=== PATIENT | female | born 1990 | race African-American/Black ===

== ENCOUNTER 2021-01-19 11:17 | Emergency (ER) | payer BC, SELFPAY ==
[2021-01-19 11:33] VITALS: BP 136/92; PULSE 108; RESP 18; TEMP 36.7; O2SAT 98
[2021-01-19 11:40] LABS: Glucose Point of Care 126 mg/dl (65-105)
--- NOTE | 2021-01-19 11:43 | ECG_ITS ---
Measurements Intervals [place] Rate: 100 P: 44 GA: 179 QRS: 14 QRSD: 86 T: 20 QT: 318 QTc: 411 Interpretive Statements SINUS TACHYCARDIA VOLTAGE CRITERIA FOR LVH ST ELEVATION IN DIFFUSE LEADS- PROBABLY EARLY REPOLARIZATION ABNORMALITY BORDERLINE ECG Electronically Signed On 01-19-2021 13:40:29 CDT by Burak Mehta D.O.
[2021-01-19 12:15] LABS: Basophils Percent Auto 0.1 % (0.2-1.2); Eosinophils Absolute Auto 0.1 K/mm3 (0-0.3); Eosinophils Percent Auto 1.9 % (0-4.4); Hematocrit 36.9 % (37.0-47.0); Immature Granulocyte Absolute 0.02 K/mm3 (0.00-0.031); Immature Granulocyte Percent A 0.3 % (0-0.5); Lymphocytes Absolute Auto 2.87 K/mm3 (0.9-3.2); Lymphocytes Percent Auto 41.7 % (18.3-44.2); Mean Corpuscular HGB Conc 29.8 g/dl (32-36); Mean Corpuscular Hemoglobin 23.7 pg (26-34); Mean Corpuscular Volume 79.5 fl (80-100); Mean Platelet Volume 11.7 fl (7.4-10.4); Monocytes Absolute Auto 0.6 K/mm3 (0.1-0.6); Monocytes Percent Auto 8.3 % (2.6-8.5); Neutrophils Absolute Auto 3.3 K/mm3 (1.3-6.7); Neutrophils Percent Auto 47.7 % (45.5-73.1); Platelet Count Result 292 k/mm3 (150-375); Red Blood Count 4.64 M/mm3 (4.2-5.4); Red Cell Distribution Width 16.4 % (11.5-14.5); White Blood Count 6.9 K/mm3 (4.5-10.0)
[2021-01-19 12:20] VITALS: BP 127/80; PULSE 96
[2021-01-19 12:21] LABS: Alanine Aminotransferase 23 U/L (4-35); Albumin Level 4.2 g/dL (3.5-5.1); Alkaline Phosphatase 125 U/L (38-126); Anion Gap 8 mmol/L (8-16); Aspartate Amino Transferase 22 U/L (14-36); Bilirubin,Total 0.5 mg/dL (0.2-1.3); Blood Urea Nitrogen 7 mg/dL (7-17); Calcium 9.5 mg/dL (8.4-10.2); Carbon Dioxide 27 mmol/L (22-30); Chloride 105 mmol/L (98-107); Estimated CRCL calculation 149 ml/min; Estimated Glomerular Filt Rate > 60; Glucose 133 mg/dL (65-105); Lipase 73 U/L (23-300); Magnesium 1.6 mg/dL (1.6-2.3); Potassium 4.5 mmol/L (3.4-5.0); Sodium 140 mmol/L (137-145)
[2021-01-19 12:22] VITALS: BP 134/86; PULSE 95
[2021-01-19 12:24] VITALS: BP 139/86; PULSE 101
[2021-01-19] MEDS: LACTATED RINGERS 1,000 ML 999 ML IV CONT (12:26)
[2021-01-19] MEDS: diphenhydrAMINE HCl INJ 50 MG/ML VIAL 25 MG IV PUSH (12:26)
[2021-01-19] MEDS: METOCLOPRAMIDE HCL INJ 10 MG/2 ML VIAL IV PUSH (12:27)
--- NOTE | 2021-01-19 12:43 | ED.GENADULT ---
HPI - General Adult General Chief complaint: Recheck/Abnormal Lab/Rx Stated complaint: High Blood Sugar Time Seen by Provider: 01/19/21 11:21 Source: patient and RN notes reviewed Mode of arrival: ambulatory Limitations: no limitations History of Present Illness HPI narrative: This is a 30 year old female who presents for evaluation blurred vision, headache, dizziness. She states she developed dull frontal headache, blurred vision, nausea, vomiting and diarrhea 1 hour after working. She also reports her blood sugar was high at 190. She denies fever, chills, runny nose, sore throat. She has not taken anything for her symptoms. Related Data Allergies Allergy/AdvReac Type Severity Reaction Status Date / Time No Known Allergies Allergy Unverified 04/12/19 07:18 Review of Systems Review of Systems: All systems reviewed & are unremarkable except as noted in HPI and below Constitutional: Constitutional: Denies chills and Denies fever(s) Eyes: Eyes: Reports change in vision ENT: Reports dizziness, Denies nasal congestion and Denies sore throat Cardiovascular: Cardiovascular: Denies chest pain Respiratory: Respiratory: Denies cough and Denies dyspnea Gastrointestinal: Gastrointestinal: Denies abdominal pain, Reports diarrhea, Reports nausea and Reports vomiting Musculoskeletal: Musculoskeletal: Reports arthralgias Neurologic: Reports headache(s) [facility] Past Medical History Medical History (Updated 01/19/21 @ 14:32 by Laura South MD) Diabetes mellitus Social History Social History (Updated 01/19/21 @ 13:29 by Laura South MD) Smoking status: Never smoker Alcohol intake: current Substance use: never Exam Const: General: no acute distress and alert Nutritional Appearance: obese Orientation/consciousness: patient oriented x3 HENMT: Ears: TM's normal bilaterally Face and sinus: normal facial exam Eyes: Conjunctivae: conjunctivae normal Pupils: Equal, round and reactive pupils present EOM: EOMs intact bilaterally Chest: Chest palpation & inspection: normal inspection of the chest Resp: Effort & Inspection: normal respiratory effort and no retractions Auscultation: clear to auscultation bilaterally Cardio: Rate: regular rate Rhythm: regular rhythm Heart sounds: no murmurs GI: GI Palp: Yes Soft to palpation, No Tenderness to palpation present (GI) and No Guarding due to palpation present (GI) Auscultation: normal bowel sounds Skin: General skin exam: normal color Rashes: no rashes Neuro: General: patient oriented x3, moves all extremities, no meningeal signs, no focal motor deficits and CN's II-XI intact bilaterally Cranial nerves: Yes Nystagmus not present Speech: normal speech Gait exam (Neuro): Normal gait present Extrem: General: normal to inspection Psych: Mental Status: mental status grossly normal Affect: normal affect Course Reevaluation(s) Reevaluation #1: PAtient reports she feels much better. She reports her headache and blurred vision have resolved. Date: 01/19/21 Time: 14:22 Reevaluation #2: Patient states she is feeling much better and her symptoms have resolved. She is eager for discharge home. Date: 01/19/21 Time: 14:30 Vital Signs Vital signs: Vital Signs Temperature 98.1 F 01/19/21 11:33 Pulse Rate 108 H 01/19/21 11:33 Respiratory Rate 18 01/19/21 11:33 Blood Pressure 136/92 H 01/19/21 11:33 Pulse Oximetry 98 01/19/21 11:33 Temperature 98.1 F 01/19/21 11:33 Pulse Rate 82 01/19/21 14:40 Respiratory Rate 16 01/19/21 14:40 Blood Pressure 136/80 01/19/21 14:40 Pulse Oximetry 96 01/19/21 14:40 Medical Decision Making Vital Signs Vital Signs: Vital Signs Temperature 98.1 F 01/19/21 11:33 Pulse Rate 108 H 01/19/21 11:33 Respiratory Rate 18 01/19/21 11:33 Blood Pressure 136/92 H 01/19/21 11:33 Pulse Oximetry 98 01/19/21 11:33 Temperature 98.1 F 01/19/21 11:33 Pulse Rate
--- NOTE | 2021-01-19 12:47 | PC.NURSE ---
Pt. to bathroom to attempt to void.
--- NOTE | 2021-01-19 13:23 | PC.NURSE ---
pt. unable to void, refuses catheter, aware awaiting urine specimen to complete plan of care. In no acute distress. States her blurry vision has resolved.
--- NOTE | 2021-01-19 13:30 | PC.NURSE ---
Pt tried x2 to go to the bathroom with no success. Refused straight cath at this time
[2021-01-19 14:21] LABS: Add Urine Microscopic? YES; Appearance Urine Cloudy (Clear); Bilirubin Urine Negative (Negative); Blood Urine Negative (Negative); Color Urine Yellow (Yellow); Glucose Urine UA Negative (Negative); Ketones Urine Negative (Negative); Leukocyte Esterase Ur Negative LEU/UL (Negative); Mucus Urine Few /lpf; Nitrate Urine Negative (Negative); Protein Urine 1+ mg/dL (Negative); Specific Grav Ur 1.029 (1.001-1.035); Squamous Epithelial Cell Urine Many /hpf (Few); WBC Urine 0-3 /hpf
[2021-01-19 14:40] VITALS: BP 136/80; PULSE 82; RESP 16; O2SAT 96
== END 2021-01-19 14:40 | disposition home or self-care (01) ==
PROVIDERS: Emergency Provider General Practice; PCP Physician Assistant
DX: R51.9 Headache, unspecified (principal); E86.0 Dehydration; E11.9 Type 2 diabetes mellitus without complications; R00.0 Tachycardia, unspecified; R94.31 Abnormal electrocardiogram [ECG] [EKG]
CPT/HCPCS: 36415; 80053; 81001; 82948; 83690; 83735; 85025; 93005; 96361; 96374; 96375; 99284; J1200; J2765; J7120

== ENCOUNTER 2021-06-04 13:55 | Outpatient (CLI) | payer OTHER, SELFPAY ==
--- NOTE | 2021-06-04 | ECHO_ITS ---
Patient Info Name: Tara Ta Age: 30 years : 1990 Gender: Female Ht: 67 in Wt: 250 lbs BSA: 2.37 m2 HR: 78 bpm BP: 129 / 85 mmHg Technical Quality: Fair Exam Date: 06/04/2021 2:16 PM Exam Location: [facility] Patient Status: Outpatient Admit Date: 06/04/2021 Staff Ordering Physician: RamirezAraceli Mud Cleaner Operator: Shaylee Sandra RDCS Attending Provider: Caty, Araceli MAY Referring Physician: Ramirez CARSON; Exam Type: CA echo doppler color flow Study Info Indications - CARDIOMEGALY Complete two-dimensional, color flow and Doppler transthoracic echocardiogram is performed. Summary 1. Complete two-dimensional, color flow and Doppler transthoracic echocardiogram is performed. 2. Normal LV size and wall thickness; normal LV systolic function, ejection fraction 60-65%. Indeterminate diastolic function. Normal mitral valve structure, no significant MR. Normal aortic valve structure, no regurgitation or stenosis. Trivial TR, RVSP 25 mmHg. Left Ventricle Left ventricular chamber dimension is normal. Left ventricular systolic function is normal, estimated at 60-65%. There is no increased left ventricular wall thickness. Right Ventricle Right ventricular chamber dimension is normal. Right ventricular systolic function is normal. Left Atria Left atrial chamber dimension is normal. Right Atria Right atrial chamber dimension is normal. Aortic Valve The aortic valve is normal. There is no aortic valve stenosis. Pulmonic Valve The pulmonic valve is normal. Mitral Valve The mitral valve has normal leaflets. Tricuspid Valve The tricuspid valve leaflets are normal. Pericardium/Pleural The pericardium appears normal. Inferior Vena Cava Normal inferior vena cava with >50% collapse upon inspiration consistent with normal right atrial pressure, 10 mmHg. Aorta The aortic root size at the sinus of Valsalva is not well visualized. Left Ventricular Outflow Tract Name Value Normal LVOT 2D LVOT Diameter 2.0 cm LVOT Doppler LVOT Peak Gradient 5 mmHg LVOT Mean Gradient 3 mmHg LVOT VTI 20 cm LVOT VTI/AV VTI Ratio 0.8 LVOT Stroke Volume 61 ml LVOT CO 14.7 l/min LVOT CI 6.2 l/min/m2 Pulmonic Valve Name Value Normal PV Doppler PV Peak Gradient 5 mmHg Mitral Valve Name Value Normal MV Doppler MV Decel Sheridan 314 cm/s
== END 2021-06-04 13:56 | disposition home or self-care (01) ==
LOC: ANHCARD 13:56
PROVIDERS: PCP Physician Assistant; Visit Provider Physician Assistant
DX: I51.7 Cardiomegaly (principal)
CPT/HCPCS: 93306

== ENCOUNTER 2021-09-18 10:52 | Emergency (ER) | payer OTHER, SELFPAY ==
[2021-09-18 11:19] VITALS: BP 145/83; PULSE 76; RESP 18; TEMP 36.4; O2SAT 100
[2021-09-18 11:57] LABS: Glucose Point of Care 115 mg/dl (65-105)
[2021-09-18 12:13] LABS: Basophils Percent Auto 0.3 % (0.2-1.2); Eosinophils Absolute Auto 0.1 K/mm3 (0-0.3); Hematocrit 38.3 % (37.0-47.0); Hemoglobin 11.7 g/dL (12.0-15.0); Immature Granulocyte Absolute 0.03 K/mm3 (0.00-0.031); Immature Granulocyte Percent A 0.4 % (0-0.5); Lymphocytes Absolute Auto 3.19 K/mm3 (0.9-3.2); Lymphocytes Percent Auto 43.6 % (18.3-44.2); Mean Corpuscular HGB Conc 30.5 g/dl (32-36); Mean Corpuscular Hemoglobin 25.2 pg (26-34); Mean Corpuscular Volume 82.5 fl (80-100); Mean Platelet Volume 11.4 fl (7.4-10.4); Monocytes Absolute Auto 0.5 K/mm3 (0.1-0.6); Monocytes Percent Auto 7.1 % (2.6-8.5); Neutrophils Absolute Auto 3.5 K/mm3 (1.3-6.7); Neutrophils Percent Auto 47.6 % (45.5-73.1); Platelet Count Result 246 k/mm3 (150-375); Red Blood Count 4.64 M/mm3 (4.2-5.4); Red Cell Distribution Width 16.2 % (11.5-14.5); White Blood Count 7.3 K/mm3 (4.5-10.0)
[2021-09-18 12:22] LABS: Alanine Aminotransferase 25 U/L (4-35); Albumin Level 4.2 g/dL (3.5-5.1); Alkaline Phosphatase 107 U/L (38-126); Anion Gap 11 mmol/L (8-16); Aspartate Amino Transferase 29 U/L (14-36); Bilirubin,Total 0.4 mg/dL (0.2-1.3); Blood Urea Nitrogen 10 mg/dL (7-17); Calcium 9.5 mg/dL (8.4-10.2); Carbon Dioxide 26 mmol/L (22-30); Chloride 103 mmol/L (98-107); Estimated CRCL calculation 115 ml/min; Estimated Glomerular Filt Rate > 60; Glucose 106 mg/dL (65-110); Potassium 4.2 mmol/L (3.4-5.0); Sodium 140 mmol/L (137-145)
[2021-09-18 13:00] LABS: Add Urine Microscopic? YES; Appearance Urine Clear (Clear); Bilirubin Urine Negative (Negative); Blood Urine Negative (Negative); Color Urine Yellow (Yellow); Glucose Urine UA Negative (Negative); Ketones Urine Negative (Negative); Leukocyte Esterase Ur Negative LEU/UL (Negative); Mucus Urine Rare /lpf; Nitrate Urine Negative (Negative); Protein Urine Negative (Negative); RBC Urine 0-2 /hpf (0-2); Specific Grav Ur 1.025 (1.001-1.035); Squamous Epithelial Cell Urine Many /hpf (Few); WBC Urine 0-3 /hpf
--- NOTE | 2021-09-18 13:03 | ED.GENADULT ---
HPI - General Adult General Chief complaint: Unspecified Stated complaint: hypoglycemia Time Seen by Provider: 09/18/21 11:39 Source: patient and RN notes reviewed Mode of arrival: ambulatory Limitations: no limitations History of Present Illness HPI narrative: Patient is a 31-year-old female who presents from urgent care for evaluation of feeling jittery and not well yesterday and then again today while at work she notes that her glucose was in the 80s which is low for her she ate some sugar and is feeling better at this time she denies any acute illness lightheadedness dizziness nausea vomiting URI symptoms and on arrival denies any pain she notes that she has not been compliant with her Metformin but did take it prior evening and today and plans to become pliant has follow-up with primary care on the . And as noted on arrival is feeling better at this time Related Data Allergies Allergy/AdvReac Type Severity Reaction Status Date / Time No Known Allergies Allergy Unverified 04/12/19 07:18 Review of Systems Review of Systems: All systems reviewed & are unremarkable except as noted in HPI and below PMFSH Past Medical History Medical History Diabetes mellitus Social History Social History Smoking status: Never smoker Alcohol intake: current Substance use: never Exam Narrative: GENERAL: Well-appearing, well-nourished, and in no acute distress. HEAD: Normocephalic, atraumatic. EYES: PERRLA and EOMI. ENT: Nares clear, no rhinorrhea or epistaxis. Mucous membranes moist. CHEST: Clear to auscultation. No respiratory distress. No wheezes rales or rhonchi HEART: Regular rate and rhythm. No murmur heard. EXTREMITIES: Normal range of motion. No edema. SKIN: Warm, dry, no rash. NEURO: No focal deficits. Alert and oriented x3. Cranial nerves II through XII grossly intact. Normal speech and gait PSYCH: Normal mood and affect. Course Course Emergency Course: Patient presented with not feeling well with potential low blood glucose she is afebrile nontoxic-appearing nondistressed asymptomatic and feeling better on arrival she had been advised to adhere to her medication regimen and agrees with the treatment plan she is hemodynamically stable no high risk changes in her evaluation afebrile nontoxic-appearing nondistressed and felt appropriate for outpatient reevaluation with her upcoming primary care visit ABCs and vital signs intact state Vital Signs Vital signs: Vital Signs Temperature 97.6 F 09/18/21 11:19 Pulse Rate 76 09/18/21 11:19 Respiratory Rate 18 09/18/21 11:19 Blood Pressure 145/83 H 09/18/21 11:19 Pulse Oximetry 100 09/18/21 11:19 Temperature 97.6 F 09/18/21 11:19 Pulse Rate 76 09/18/21 11:19 Respiratory Rate 18 09/18/21 11:19 Blood Pressure 145/83 H 09/18/21 11:19 Pulse Oximetry 100 09/18/21 11:19 Medical Decision Making MDM Narrative Medical decision making narrative: Symptoms likely related to her low glucose today she is feeling fine at this time she notes that she will be compliant with medications she has been given strict indications for return and agrees to do so if symptoms worsen she is afebrile nontoxic-appearing nondistressed felt appropriate for outpatient reevaluation Vital Signs Vital Signs: Vital Signs Temperature 97.6 F 09/18/21 11:19 Pulse Rate 76 09/18/21 11:19 Respiratory Rate 18 09/18/21 11:19 Blood Pressure 145/83 H 09/18/21 11:19 Pulse Oximetry 100 09/18/21 11:19 Temperature 97.6 F 09/18/21 11:19 Pulse Rate 76 09/18/21 11:19 Respiratory Rate 18 09/18/21 11:19 Blood Pressure 145/83 H 09/18/21 11:19 Pulse Oximetry 100 09/18/21 11:19 Lab Data Result diagrams: 09/18/21 11:59 09/18/21 11:59 Labs: Lab Results 09/18/21 09/18/21 09/18/21 Range/Units 11:17 11:59 11:
[2021-09-18 13:38] VITALS: BP 139/72; PULSE 72; RESP 18; TEMP 36.6; O2SAT 100
== END 2021-09-18 13:38 | disposition home or self-care (01) ==
PROVIDERS: Emergency Medicine Emergency Medical Services; Emergency Provider Emergency Medicine; PCP Physician Assistant
DX: E11.649 Type 2 diabetes mellitus with hypoglycemia without coma (principal); Z79.84 Long term (current) use of oral hypoglycemic drugs; T38.3X6A Underdosing of insulin and oral hypoglycemic [antidiabetic] drugs, initial encounter; Z91.128 Patient's intentional underdosing of medication regimen for other reason
CPT/HCPCS: 36415; 80053; 81001; 82948; 85025; 99283

== ENCOUNTER 2022-03-12 10:34 | Emergency (ER) | payer OTHER, SELFPAY ==
--- NOTE | 2022-03-12 10:40 | PC.NURSE ---
Pt stated that she passed out at work and she knew it was from her diabetes . Pt was informed of the workup regarding the complaint. Pt stated I just need a work note, I don't want all of that done.
== END 2022-03-12 10:40 | disposition left against medical advice (07) ==
PROVIDERS: PCP Physician Assistant
DX: Z53.21 Procedure and treatment not carried out due to patient leaving prior to being seen by health care provider (principal)
CPT/HCPCS: 99199

== ENCOUNTER 2022-03-12 10:47 | Emergency (ER) | payer OTHER, SELFPAY ==
--- NOTE | 2022-03-12 10:56 | PC.NURSE ---
Went in to see patient. She was sitting on the side of the bed looking at her phone. I introduced myself. The patient did not acknowledge me. The techs came in to do an EKG and the patient refused to lie back to complete the test. I explained the need for the exam and that we would get better results if she would lie back in the bed for a short period of time to complete it and then she could sit up again. The patient continued to stare at her phone and not acknowledge me. I asked her if she understood me and would lie back, she sait wait a moment. She then stated that she was going to leave.
--- NOTE | 2022-03-12 11:01 | ECG_ITS ---
Measurements Intervals [place] Rate: 74 P: 31 NH: 173 QRS: 2 QRSD: 89 T: 6 QT: 344 QTc: 383 Interpretive Statements SINUS RHYTHM WITH SINUS ARRHYTHMIA VOLTAGE CRITERIA FOR LVH ST ELEVATION IN HIGH LATERAL LEADS- PROBABLY EARLY REPOLARIZATION ABNORMALITY BASELINE ARTIFACT- I, II, III, AVR, AVL, AVF, V4 BORDERLINE ECG Electronically Signed On 03-12-2022 11:13:13 CDT by Burak Mehta D.O.
[2022-03-12 11:06] VITALS: BP 153/95; PULSE 84; RESP 16; O2SAT 100
[2022-03-12 11:11] LABS: Glucose Point of Care 207 mg/dl (65-105)
--- NOTE | 2022-03-12 11:16 | PC.NURSE ---
Pt low risk for suicide. Dr. Jones informed. He will assess the situation.
[2022-03-12 11:21] VITALS: BP 153/95; PULSE 83; RESP 16; O2SAT 100
[2022-03-12 11:35] VITALS: BP 145/98; PULSE 86
[2022-03-12 11:37] VITALS: BP 142/99; PULSE 91
[2022-03-12 11:38] VITALS: BP 165/111; PULSE 99
--- NOTE | 2022-03-12 12:11 | ED.SYNCOPE ---
HPI - Syncope General Chief Complaint: Syncope Stated Complaint: syncope Time Seen by Provider: 03/12/22 10:51 History of Present Illness HPI narrative: Patient is a 31-year-old female who presents ER for evaluation after syncopal episode at work. 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 Reports she did not take her metformin nor did she eat this morning. She had an episode where she was feeling lightheaded and hot so she sat down and rested. She then got back up to do her work and then she lost consciousness. Reports it was witnessed and that she was out for a very brief amount of time. Coworkers applied ice to her to cool her off. She then drank some apple juice. She was instructed to be evaluated before return to work. Patient denies chest pain or chest pressure. No racing heart. No dyspnea. No focal numbness or weakness. Reports she has had similar episodes to this when she has not had anything to eat previously. Related Data Allergies Allergy/AdvReac Type Severity Reaction Status Date / Time No Known Allergies Allergy Unverified 04/12/19 07:18 Review of Systems Review of Systems: All systems reviewed & are unremarkable except as noted in HPI and below Constitutional: Constitutional: Denies chills, Denies fatigue and Denies fever(s) Cardiovascular: Cardiovascular: Denies chest pain, Denies rapid heart rate and Denies radiating jaw, neck or arm pain Respiratory: Respiratory: Denies dyspnea Gastrointestinal: Gastrointestinal: Denies nausea and Denies vomiting Neurologic: Reports syncope, Denies headache(s), Denies focal weakness and Denies numbness PMFSH Past Medical History Medical History Diabetes mellitus Social History Social History Smoking status: Never smoker Alcohol intake: current Substance use: never Exam Narrative: GENERAL: Well-appearing, well-nourished, and in no acute distress. HEAD: Normocephalic, atraumatic. CHEST: Clear to auscultation. No respiratory distress. HEART: Regular rate and rhythm. Normal peripheral pulses. ABDOMEN: Soft, nontender, nondistended. EXTREMITIES: Normal range of motion. No edema. NEURO: Alert and oriented x3. PSYCH: Normal mood and affect. Course Course Emergency Course: Patient resting comfortably. Normal orthostatics. Bedside negative. EKG and [id number] blood glucose unremarkable. Discharge home. Vital Signs Vital signs: Vital Signs Pulse Rate 84 03/12/22 11:06 Respiratory Rate 16 03/12/22 11:06 Blood Pressure 153/95 H 03/12/22 11:06 Pulse Oximetry 100 03/12/22 11:06 Pulse Rate 99 03/12/22 11:38 Respiratory Rate 16 03/12/22 11:21 Blood Pressure 165/111 H 03/12/22 11:38 Pulse Oximetry 100 03/12/22 11:21 MDM - Syncope Lab Data Labs: Lab Results 03/12/22 Range/Units 11:09 POC Capillary Glucose 207 H (65-105) mg/dl UCG Bedside Result Negative Reference Range: Negative ECG Data EKG #1: ECG completion date: 03/12/22 ECG completion time: 11:08 EKG Interpretation: normal rate (74), sinus rhythm, non-specific ST changes, normal QRS, normal QT and other (lvh) Discharge Plan Discharge Clinical Impression: Syncope Patient Disposition: Home, Self-Care Condition: Stable Instructions: Syncope (ED) Additional Instructions: Return the ER if you have chest pain or shortness of breath, you cannot keep down food or water, you have recurrent loss of consciousness, you have additional concerns. Follow-up/Referrals: Ramirez,YADIRA Hernandez [Primary Care Provider] - 1 Week Stand Alone Forms: Work/School Release IP
== END 2022-03-12 12:30 | disposition home or self-care (01) ==
PROVIDERS: Emergency Provider Emergency Medicine; PCP Physician Assistant
DX: R55 Syncope and collapse (principal); E11.9 Type 2 diabetes mellitus without complications; Z79.84 Long term (current) use of oral hypoglycemic drugs; R94.31 Abnormal electrocardiogram [ECG] [EKG]
CPT/HCPCS: 81025; 82948; 93005; 99283

== ENCOUNTER 2022-10-04 14:02 | Outpatient (CLI) | payer OTHER, SELFPAY ==
--- NOTE | ~2022-10-04 | XR_ITS ---
EXAMINATION: XR chest 2V 10/04/2022 14:16 INDICATION: Tuberculosis screening. PROCEDURE: 2 view chest COMPARISON: No prior studies for comparison. FINDINGS: The lungs are clear. The cardiomediastinal silhouette is within normal limits. There are no pleural effusions. There is no pneumothorax suspected. IMPRESSION: 1: NO ACUTE CARDIOPULMONARY DISEASE. Reviewed, dictated and finalized at location A. DEHYDRATOR OPERATOR
== END 2022-10-04 14:03 | disposition home or self-care (01) ==
LOC: ANHIMG 14:06
PROVIDERS: PCP Physician Assistant; Visit Provider Physician Assistant
DX: Z11.7 Encounter for testing for latent tuberculosis infection (principal)
CPT/HCPCS: 71046

== ENCOUNTER 2023-07-23 10:53 | Emergency (ER) | payer OTHER, SELFPAY ==
[2023-07-23 11:15] VITALS: BP 142/96; PULSE 101; RESP 18; TEMP 36.3; O2SAT 98
[2023-07-23 11:35] LABS: Basophils Percent Auto 0.2 % (0.2-1.2); Eosinophils Percent Auto 0.5 % (0-4.4); Hematocrit 38.5 % (37.0-47.0); Hemoglobin 11.3 g/dL (12.0-15.0); Immature Granulocyte Absolute 0.02 K/mm3 (0.00-0.031); Immature Granulocyte Percent A 0.3 % (0-0.5); Lymphocytes Absolute Auto 2.46 K/mm3 (0.9-3.2); Lymphocytes Percent Auto 38.6 % (18.3-44.2); Mean Corpuscular HGB Conc 29.4 g/dl (32-36); Mean Corpuscular Volume 85.2 fl (80-100); Mean Platelet Volume 11.6 fl (7.4-10.4); Monocytes Absolute Auto 0.5 K/mm3 (0.1-0.6); Monocytes Percent Auto 7.8 % (2.6-8.5); Neutrophils Absolute Auto 3.4 K/mm3 (1.3-6.7); Neutrophils Percent Auto 52.6 % (45.5-73.1); Platelet Count Result 271 k/mm3 (150-375); Red Blood Count 4.52 M/mm3 (4.2-5.4); Red Cell Distribution Width 16.3 % (11.5-14.5); White Blood Count 6.4 K/mm3 (4.5-10.0)
[2023-07-23 11:46] LABS: Alanine Aminotransferase 28 U/L (6-35); Albumin Level 4.2 g/dL (3.5-5.1); Alkaline Phosphatase 100 U/L (38-126); Anion Gap 7 mmol/L (8-16); Aspartate Amino Transferase 23 U/L (14-36); Bilirubin,Total 0.6 mg/dL (0.2-1.3); Blood Urea Nitrogen 8 mg/dL (7-17); Calcium 9.3 mg/dL (8.4-10.2); Carbon Dioxide 28 mmol/L (22-30); Chloride 104 mmol/L (98-107); Estimated CRCL calculation 123 ml/min; Estimated Glomerular Filt Rate > 60; Glucose 102 mg/dL (65-110); Lipase 65 U/L (23-300); Potassium 4.1 mmol/L (3.4-5.0); Sodium 139 mmol/L (137-145)
[2023-07-23 12:03] LABS: Large Platelets Present; Platelet Estimate Adequate (Adequate); Schistocytes None Seen (NORMAL)
[2023-07-23 14:11] LABS: Appearance Urine Cloudy (Clear); Bacteria Urine 2+ /hpf; Bilirubin Urine Negative (Negative); Blood Urine Negative (Negative); Color Urine Yellow (Yellow); Glucose Urine UA Negative (Negative); Ketones Urine Trace mg/dL (Negative); Leukocyte Esterase Ur Negative LEU/UL (Negative); Nitrate Urine Negative (Negative); Non Pathogenic Casts 0-2; Protein Urine Negative (Negative); RBC Urine 0-2 /hpf (0-2); Specific Grav Ur 1.024 (1.001-1.035); Squamous Epithelial Cell Urine Few /hpf (Few); WBC Urine 0-5 /hpf
[2023-07-23 14:21] LABS: Add Urine Microscopic? YES
--- NOTE | 2023-07-23 14:24 | ED.FEMALEGU ---
HPI - Female Genitourinary General Chief complaint: Vaginal Bleeding Stated complaint: abd pain, irr bleeding Time Seen by Provider: 07/23/23 13:13 Source: patient Mode of arrival: ambulatory Limitations: no limitations History of Present Illness HPI Narrative: Patient is a 32-year-old female who presents to the ED with report of lower abdominal pain, abnormal vaginal bleeding. Patient reports having lower abdominal pain since Friday. It has been fairly constant. She has been taking Aleve with some relief. She also reports having abnormal vaginal bleeding. She states she has irregular cycles and last had a cycle in February, which lasted for several weeks. She began bleeding over the weekend and reports intermittent episodes of gushing of blood. She tried contacting her OBGYN but was unable to make an appt until September. Patient denies any nausea, vomiting, fevers, dysuria, hematuria, diarrhea, constipation, dizziness, lightheadedness. Related Data Allergies Allergy/AdvReac Type Severity Reaction Status Date / Time No Known Allergies Allergy Verified 07/23/23 13:11 Review of Systems Review of Systems: CONSTITUTIONAL: Denies fever, chills, or sweats. CARDIOVASCULAR: Denies chest pain, palpitations, or edema. RESPIRATORY: Denies cough or dyspnea. GASTROINTESTINAL: See HPI. GENITOURINARY: See HPI. NEUROLOGIC: Denies dizziness, LH, headache, numbness, or weakness. All systems reviewed & are unremarkable except as noted in HPI and below PMFSH Past Medical History Medical History Diabetes mellitus Social History Social History Smoking status: Never smoker Alcohol intake: current Substance use: never Exam Narrative: GENERAL: Well appearing, obese with BMI of 34.5, non-toxic, in no acute distress. HEAD: Normocephalic, atraumatic. NECK: Supple. No adenopathy, no masses. RESPIRATORY: Airway patent, respirations nonlabored. Clear to auscultation bilaterally, no rales, rhonchi, wheezing. CARDIOVASCULAR: Regular rate and rhythm without murmurs, rubs, or gallops. Radial pulses 2+ and equal bilaterally. ABDOMINAL: Soft, tenderness in RLQ and suprapubic region, nondistended, no hepatosplenomegaly. Normoactive BS. MUSCULOSKELETAL: Moves all extremities. No gross deformities. SKIN: Warm, dry, normal color. No rashes. NEURO: A&O X3. Speech clear. Cranial nerves II-XII grossly intact. Steady gait. No ataxic movements. PSYCHIATRIC: Appropriate mood and affect. Normal interaction. Course Vital Signs Vital signs: Vital Signs Temperature 97.4 F L 07/23/23 11:15 Pulse Rate 101 H 07/23/23 11:15 Respiratory Rate 18 07/23/23 11:15 Blood Pressure 142/96 H 07/23/23 11:15 Pulse Oximetry 98 07/23/23 11:15 Oxygen Delivery Room Air 07/23/23 11:15 Temperature 97.4 F L 07/23/23 11:15 Pulse Rate 101 H 07/23/23 11:15 Respiratory Rate 18 07/23/23 11:15 Blood Pressure 142/96 H 07/23/23 11:15 Pulse Oximetry 98 07/23/23 11:15 Oxygen Delivery Room Air 07/23/23 11:15 MDM - Female Genitourinary MDM Narrative Medical decision making narrative: Patient present ED with lower abdominal pain, abnormal vaginal bleeding. History of irregular cycles. Vital stable upon arrival. Patient in no acute distress. She did have some right lower quadrant tenderness on exam. Cbc without leukocytosis. Chronic stable mild anemia. No significant changes from previous records in September of this year. Remainder basic laboratory studies unremarkable. Urinalysis negative other than that 2+ urine bacteria. Will send for culture. Few squamous cells noted, likely contaminated catch. Discussed obtaining a CT scan or pelvic ultrasound to further evaluate patient's lower abdominal pain. Discussed performing pelvic exam to evaluate for bleeding. Patient was initially agreeable to the additional t
== END 2023-07-23 14:43 | disposition left against medical advice (07) ==
PROVIDERS: Emergency Medicine; Emergency Provider Physician Assistant; PCP Physician Assistant
DX: R10.32 Left lower quadrant pain (principal); R10.31 Right lower quadrant pain; N93.8 Other specified abnormal uterine and vaginal bleeding
CPT/HCPCS: 36415; 80053; 81001; 81025; 83690; 85025; 87086; 87088; 99283

== ENCOUNTER 2023-07-24 07:21 | Emergency (ER) | payer OTHER, SELFPAY ==
[2023-07-24] VITALS (9 sets, daily range): BP systolic 136–140; BP diastolic 88–92; PULSE 100; RESP 18; O2SAT 97–100
--- NOTE | ~2023-07-24 | US_ITS ---
EXAMINATION: US pelvic complete DATE: 07/24/2023 09:50 INDICATION: Abdominal pain and right ovarian lesion on CT TECHNIQUE: Multiple transabdominal and endovaginal sonographic images of the pelvis were obtained. COMPARISON: None. FINDINGS: The uterus measures 8.1 x 3.0 x 4.5 cm. The endometrial complex measures 4 mm in thickness. 1.8 cm a nechoic nabothian cyst at the cervix. Bladder is normal. The right ovary measures 5.6 x 2.6 x 3.0 wit h 2.6 cm anechoic right ovarian cyst/follicle The left ovary measures 3.1 x 3.1 x 2.6 cm. There is no rmal vascular flow with arterial waveforms in both of the ovaries. There is no free fluid in the pelv is. IMPRESSION: 1. 2.6 cm right ovarian cyst/follicle and 1.8 cm nabothian cyst at the cervix. Otherwise normal pelvi c ultrasound. Reviewed, dictated and finalized at location A. ECT MANAGER PROCESS DEVELOPMENT IMPRESSION: 1. 2.6 cm right ovarian cyst/follicle and 1.8 cm nabothian cyst at the cervix. Otherwise normal pelvic ultrasound.
--- NOTE | ~2023-07-24 | CT_ITS ---
EXAMINATION: CT abdomen pelvis w con DATE: 07/24/2023 08:57 INDICATION: Abdomen pain. TECHNIQUE: Computed tomography (CT) of the abdomen and pelvis was performed with 100 cc Omnipaque 350 intravenous contrast. The dose-length product was 1478.40 mGy-cm. Automated exposure control and ite rative reconstruction technique were employed. COMPARISON: None. FINDINGS: Lung bases are unremarkable. Heart size normal. No significant pleural or pericardial effus ion. There are small low-density lesions in the left kidney, most likely benign cysts. No significant vascular abnormality. No lymphadenopathy. Prominent right ovary containing follicular changes. Nonob structive bowel gas pattern. The liver, spleen, pancreas, left adrenal gland and right kidney are unremarkable. Gallbladder is pre sent. There is a high density right adrenal mass measuring 81 Hounsfield units. This mass measures 2. 8 x 2.3 cm greatest axial dimension. Gallbladder is present. No free air or free fluid. IMPRESSION: 1. Prominent right ovary with follicular changes. Consider correlation with pelvic ultrasound. 2: Solid 2.8 cm right adrenal mass. Correlation with MRI abdomen with without and with contrast recom mended. Reviewed, dictated and finalized at location L. D SPECIALIST IMPRESSION: 1. Prominent right ovary with follicular changes. Consider correlation with pel anibal ultrasound. 2: Solid 2.8 cm right adrenal mass. Correlation with MRI abdomen with without a nd with contrast recommended.
[2023-07-24 07:46] LABS: Basophils Percent Auto 0.2 % (0.2-1.2); Eosinophils Percent Auto 0.5 % (0-4.4); Hematocrit 40.8 % (37.0-47.0); Hemoglobin 12.3 g/dL (12.0-15.0); Immature Granulocyte Absolute 0.02 K/mm3 (0.00-0.031); Immature Granulocyte Percent A 0.3 % (0-0.5); Lymphocytes Absolute Auto 2.64 K/mm3 (0.9-3.2); Lymphocytes Percent Auto 40.6 % (18.3-44.2); Mean Corpuscular HGB Conc 30.1 g/dl (32-36); Mean Corpuscular Volume 82.9 fl (80-100); Mean Platelet Volume 11.6 fl (7.4-10.4); Monocytes Absolute Auto 0.6 K/mm3 (0.1-0.6); Monocytes Percent Auto 8.5 % (2.6-8.5); Neutrophils Absolute Auto 3.3 K/mm3 (1.3-6.7); Neutrophils Percent Auto 49.9 % (45.5-73.1); Platelet Count Result 292 k/mm3 (150-375); Red Blood Count 4.92 M/mm3 (4.2-5.4); Red Cell Distribution Width 16.2 % (11.5-14.5); White Blood Count 6.5 K/mm3 (4.5-10.0)
--- NOTE | 2023-07-24 07:48 | ED.GENADULT ---
HPI - General Adult General Chief complaint: Abdominal Pain Stated complaint: Abdominal pain and vag bleeding Time Seen by Provider: 07/24/23 07:27 History of Present Illness HPI narrative: 32-year-old female with history of irregular periods presenting to the emergency department for evaluation of vaginal bleeding. Patient states he has only had spotting since February but began having menstrual bleeding on Friday. Patient describes associated lower abdominal pain. Related Data Allergies Allergy/AdvReac Type Severity Reaction Status Date / Time No Known Allergies Allergy Verified 07/24/23 07:22 Review of Systems Review of Systems: All systems reviewed & are unremarkable except as noted in HPI and below PMFSH Past Medical History Medical History Diabetes mellitus Social History Social History Smoking status: Never smoker Alcohol intake: current Substance use: never Exam Narrative: APPEARANCE: Well appearing, no pain, no distress, well-nourished. HEAD: normocephalic, atraumatic. EYES: PERRLA/EOMI, conjunctivae clear. NOSE: Normal no drainage EARS:TMS clear with good light reflex. THROAT: Pharynx clear, no exudate. NECK: Supple. No adenopathy, no masses. RESPIRATORY: Airway patent, respirations nonlabored. Clear to auscultation bilaterally, no rales, rhonchi, wheezing. CARDIOVASCULAR: Regular rate and rhythm without murmurs rubs or gallops. ABDOMINAL: Soft, nontender, nondistended, normal bowel sounds MUSCULOSKELETAL: Moves all extremities. Strength/ROM intact, No edema, No calf tenderness. NEURO: Alert. Cranial nerves II through XII intact. Grossly intact SKIN: Warm, dry. Normal Color Course Course Emergency Course: 32-year-old female presenting to the emergency department for evaluation of vaginal bleeding and lower abdominal pain. Patient is afebrile with no leukocytosis and hemoglobin of 12.3. Patient has normal PT and PTT. No significant abnormalities on her CMP. CT scan was ordered and did show a prominent right ovary and Solid 2.8 cm right adrenal mass. ultrasound was ordered and showed no evidence of ovarian torsion. Patient does feel improved in the emergency department. Patient was updated on results of her CT ultrasound including the incidental finding of the adrenal mass and recommended follow-up. Vital Signs Vital signs: Vital Signs Pulse Rate 100 07/24/23 07:27 Respiratory Rate 18 07/24/23 07:27 Blood Pressure 140/92 H 07/24/23 07:27 Pulse Oximetry 98 07/24/23 07:27 Oxygen Delivery Room Air 07/24/23 07:27 Pulse Rate 100 07/24/23 07:27 Respiratory Rate 18 07/24/23 07:27 Blood Pressure 136/88 07/24/23 08:02 Pulse Oximetry 100 07/24/23 09:15 Oxygen Delivery Room Air 07/24/23 07:27 Medical Decision Making Differential Diagnosis Differential Diagnosis: colitis, diverticulitis, urinary tract infection, ovarian torsion Vital Signs Vital Signs: Vital Signs Pulse Rate 100 07/24/23 07:27 Respiratory Rate 18 07/24/23 07:27 Blood Pressure 140/92 H 07/24/23 07:27 Pulse Oximetry 98 07/24/23 07:27 Oxygen Delivery Room Air 07/24/23 07:27 Pulse Rate 100 07/24/23 07:27 Respiratory Rate 18 07/24/23 07:27 Blood Pressure 136/88 07/24/23 08:02 Pulse Oximetry 100 07/24/23 09:15 Oxygen Delivery Room Air 07/24/23 07:27 Lab Data Lab results reviewed: Yes I reviewed the patient's lab results. 07/24/23 07:33 07/24/23 07:33 Labs: Lab Results 07/24/23 Range/Units 07:33 WBC 6.5 (4.5-10.0) K/mm3 RBC 4.92 (4.2-5.4) M/mm3 Hgb 12.3 (12.0-15.0) g/dL Hct 40.8 (37.0-47.0) % MCV 82.9 (80-100) fl MCH 25.0 L (26-34) pg MCHC 30.1 L (32-36) g/dl RDW 16.2 H (11.5-14.5) % Plt Count 292 (150-375) k/mm3 MPV 11.6 H (7.4-10.4) fl [place]ur
[2023-07-24 07:54] LABS: Alanine Aminotransferase 28 U/L (6-35); Albumin Level 4.4 g/dL (3.5-5.1); Alkaline Phosphatase 109 U/L (38-126); Anion Gap 8 mmol/L (8-16); Aspartate Amino Transferase 25 U/L (14-36); Bilirubin,Total 0.6 mg/dL (0.2-1.3); Blood Urea Nitrogen 10 mg/dL (7-17); Calcium 9.6 mg/dL (8.4-10.2); Carbon Dioxide 27 mmol/L (22-30); Chloride 105 mmol/L (98-107); Estimated Glomerular Filt Rate > 60; Glucose 94 mg/dL (65-110); Potassium 4.3 mmol/L (3.4-5.0); Sodium 140 mmol/L (137-145)
[2023-07-24 08:01] LABS: Prothrombin Time 13.3 Seconds (11.1-14.7)
[2023-07-24 08:02] LABS: Partial Thromboplastin Time 30.4 SECONDS (22.3-36.8)
[2023-07-24] MEDS: SODIUM CHLORIDE 0.9% IV 1,000 ML 999 ML IV CONT (08:47)
== END 2023-07-24 10:43 | disposition home or self-care (01) ==
PROVIDERS: Emergency Provider Emergency Medicine; PCP Physician Assistant
DX: N93.9 Abnormal uterine and vaginal bleeding, unspecified (principal); R10.30 Lower abdominal pain, unspecified; E11.9 Type 2 diabetes mellitus without complications; N83.201 Unspecified ovarian cyst, right side; N88.8 Other specified noninflammatory disorders of cervix uteri
CPT/HCPCS: 36415; 74177; 76856; 80053; 81025; 85025; 85610; 85730; 96360; 99284; J7030; Q9967

== ENCOUNTER 2023-08-21 15:47 | Outpatient (CLI) | payer OTHER, SELFPAY ==
--- NOTE | ~2023-08-21 | US_ITS ---
EXAMINATION: US transvaginal DATE: 08/21/2023 16:37 INDICATION: Unspecified ovarian cyst. TECHNIQUE: Multiple transabdominal and transvaginal sonographic images of the pelvis were obtained. COMPARISON: Ultrasound pelvis 07/24/23, CT abdomen and pelvis 07/24/2023 FINDINGS: TRANSABDOMINAL ULTRASOUND: The uterus is obscured. There is no free fluid in the pelvis. TRANSVAGINAL ULTRASOUND: The uterus is obscured. There are nabothian cysts in the cervix. The right ovary measures 3.5 x 4.5 x 4.6 cm. There is a 3.5 cm cyst in right ovary. There is vascular flow in right ovary. The left ovary is not visualized. IMPRESSION: 1. 3.5 cm cyst in right ovary, likely a follicular cyst. 2. Uterus not well visualized. Left ovary not visualized. Reviewed, dictated and finalized at location E. TH SCIENCES DEPARTMENT CHAIR
--- NOTE | ~2023-08-21 | MR_ITS ---
EXAMINATION: MR abdomen wo/w con DATE: 08/21/2023 18:29 INDICATION: Adrenal mass. TECHNIQUE: Magnetic resonance imaging (MRI) of the abdomen was performed without and with 20 mL Multi Precious intravenous contrast. COMPARISON: CT abdomen and pelvis 07/24/2023 FINDINGS: The liver, gallbladder, and spleen are normal. Pancreas divisum is noted. There is a 2.7 cm mass in r ight adrenal gland containing microscopic fat, consistent with an adenoma. Left adrenal gland is norm al. Right kidney is normal. There are cysts in left kidney measuring up to 10 mm. There are no dilate d loops of bowel. There are no pathologically enlarged lymph nodes. There is no free intraperitoneal fluid. There is a 4.3 cm cyst with thin septations in right ovary. IMPRESSION: 1. 2.7 cm right adrenal adenoma. 2. 4.3 cm cyst with thin septations in right ovary, likely a follicular cyst. Reviewed, dictated and finalized at location E. TRANSFUSIONIST
== END 2023-08-21 15:48 | disposition home or self-care (01) ==
PROVIDERS: PCP Physician Assistant; Visit Provider Physician Assistant
DX: D35.01 Benign neoplasm of right adrenal gland (principal); N83.201 Unspecified ovarian cyst, right side
CPT/HCPCS: 74183; 76830; A9577

== ENCOUNTER 2023-09-16 15:14 | Emergency (ER) | payer OTHER, SELFPAY ==
--- NOTE | ~2023-09-16 | US_ITS ---
EXAMINATION: US pelvic complete w TV DATE: 09/16/2023 17:26 INDICATION: hx ovarian cysts, worsening RLQ pain TECHNIQUE: Multiple transabdominal and endovaginal sonographic images of the pelvis were obtained. COMPARISON: Pelvic ultrasound and MRI abdomen 08/21/2023; CT abdomen pelvis 09/16/2023 FINDINGS: Uterus: 7.4 x 3.0 x 3.8 cm. Cystic structures in the cervix measuring up to 2.2 cm, likely nabothian cysts. There was pain with transducer pressure in this area. Endometrial complex measures 5 mm. Right Ovary: 6.1 x 3.7 x 3.3 cm. Vascular flow is present. 2.4 and 2.2 cm simple right right ovarian cysts. Multiple adjacent smaller cysts/follicles. Left Ovary: 4.3 x 2.4 x 3.3 cm. Vascular flow is present. No adnexal mass. There is minimal free fluid in the bilateral adnexa. IMPRESSION: Pain with transducer pressure over the cervix, correlate for clinical findings of PID/cervicitis. Reviewed, dictated and finalized at location K. TRAINER
--- NOTE | ~2023-09-16 | CT_ITS ---
EXAMINATION: CT abdomen pelvis w con DATE: 09/16/2023 16:45 INDICATION: Lower abdominal pain. Nausea, vomiting, diarrhea TECHNIQUE: Computed tomography (CT) of the abdomen and pelvis was performed with 100 CC Omnipaque 350 intravenous contrast. Automated exposure control and iterative reconstruction technique were employe d. Exam dose: 1443.45 mGy-cm total exam DLP. COMPARISON: 07/24/2023 CT abdomen pelvis FINDINGS: The lung bases are clear. Normal heart size. No pericardial or pleural effusion. The liver, gallbladder, bile ducts, spleen, pancreas, pancreatic duct and left adrenal gland are unre markable. Stable approximately 2.2 x 2.7 cm right adrenal mass lesion with attenuation of 76 Hounsfield units, not significantly changed since 07/24/2023. Stable probable lower pole left renal cysts. No renal mass lesion or urinary tract calculus or hydrou reteronephrosis is noted. The urinary bladder is relatively evacuated, unremarkable. The uterus and a dnexal areas are unchanged since 07/24/2023. Normal caliber of the abdominal aorta. No intraperitoneal or retroperitoneal or pelvic mass lesion or adenopathy or ascites. No evidence of appendicitis. No bowel obstruction, bowel wall thickening, pneumatosis or intraperiton eal free air. Small fat-containing umbilical hernia. Included skeletal structures are unremarkable. IMPRESSION: Stable right adrenal mass since 07/24/2023 Reviewed, dictated and finalized at Location A. Reviewed, dictated and finalized at location L. EN CONSULTANT
[2023-09-16 15:19] VITALS: BP 148/97; PULSE 127; RESP 18; TEMP 36.7; O2SAT 100
--- NOTE | 2023-09-16 16:11 | ED.ABDPAIN ---
HPI - Abdominal Pain General Chief Complaint: Abdominal Pain Stated Complaint: abd pain Time Seen by Provider: 09/16/23 16:11 Focused HPI: Patient is a 33 y/o female who presents to the ED with multiple complaints. Patient reports hx of ovarian cysts. States she has had persistent pain in her R lower abdomen related to the ovarian cysts since June. She has been seeing her OBGYN for this. States pain became worse last night and began radiating to her lower back. She took ibuprofen for pain around 6am this morning. Patient also reports chills/diaphoresis, N/V/D, and a cough since yesterday. No rectal bleeding, melena, known fevers. Denies SOB. Denies urinary sx's. GENERAL: Well-appearing, morbidly obese with BMI of 43.5, and in no acute distress. HEAD: Normocephalic, atraumatic. CHEST: Clear to auscultation. ?No respiratory distress. HEART: Tachycardic with regular rhythm.? ABDOMEN: TTP in R lower abdomen, voluntary guarding. NEURO: ?Alert and oriented x3. Patient screened in triage and initial orders placed.? ?Additional care and disposition to be based upon?diagnostic testing and treatment. Source: patient Mode of arrival: ambulatory Limitations: no limitations Related Data Allergies Allergy/AdvReac Type Severity Reaction Status Date / Time No Known Allergies Allergy Verified 07/24/23 07:22 [facility] Past Medical History Medical History Diabetes mellitus Social History Social History Smoking status: Never smoker Alcohol intake: current Substance use: never Course Vital Signs Vital signs: Vital Signs Temperature 98.1 F 09/16/23 15:19 Pulse Rate 127 H 09/16/23 15:19 Respiratory Rate 18 09/16/23 15:19 Blood Pressure 148/97 H 09/16/23 15:19 Pulse Oximetry 100 09/16/23 15:19 Oxygen Delivery Room Air 09/16/23 15:19 Temperature 97.6 F 09/16/23 19:41 Pulse Rate 94 09/16/23 19:41 Respiratory Rate 16 09/16/23 19:41 Blood Pressure 135/77 09/16/23 19:41 Pulse Oximetry 100 09/16/23 19:41 Oxygen Delivery Room Air 09/16/23 15:19 MDM - Abdominal Pain MDM Narrative Medical decision making narrative: MSE by EMILIANO in triage. Lab Data 09/16/23 16:23 09/16/23 16:23 Labs: Lab Results 09/16/23 Range/Units 16:23 WBC 6.7 (4.5-10.0) K/mm3 RBC 5.09 (4.2-5.4) M/mm3 Hgb 12.5 (12.0-15.0) g/dL Hct 42.7 (37.0-47.0) % MCV 83.9 (80-100) fl MCH 24.6 L (26-34) pg MCHC 29.3 L (32-36) g/dl RDW 16.0 H (11.5-14.5) % Plt Count 264 (150-375) k/mm3 MPV 11.7 H (7.4-10.4) fl Immature Gran % (Auto) 0.3 (0-0.5) % Neut % (Auto) 67.2 (45.5-73.1) % Lymph % (Auto) 23.9 (18.3-44.2) % [place] % (Auto) 8.1 (2.6-8.5) % Eos % (Auto) 0.3 (0-4.4) % Baso % (Auto) 0.2 (0.2-1.2) % Lymph # (Auto) 1.59 (0.9-3.2) K/mm3 [place] # (Auto) 0.5 (0.1-0.6) K/mm3 Eos # (Auto) 0.0 (0-0.3) K/mm3 Baso # (Auto) 0.0 (0.0-0.1) K/mm3 Abs Immat Gran (auto) 0.02 (0.00-0.031) K/mm3 Absolute Neuts (auto) 4.5 (1.3-6.7) K/mm3 Absolute Nucleated RBC 0.0 (0.0-0.012) K/mm3 Nucleated RBC % 0.0 (0.0-0.2) % Platelet Estimate Adequate (Adequate) Hypochromasia 1+ (NORMAL) Anisocytosis 2+ (NORMAL) Schistocytes None seen (NORMAL) Sodium 137 (137-145) mmol/L Potassium 4.4 (3.4-5.0) mmol/L Chloride 102 (98-107) mmol/L Carbon Dioxide 27 (22-30) mmol/L Anion Gap 8 (8-16) mmol/L BUN 10 (7-17) mg/dL Creatinine 0.90 (0.7-1.0) mg/dL Estim Creat Clear Calc 110 ml/min Estimated GFR > 60 (59 - ) Glucose 112 H (65-110) mg/dL Calcium 9.8 (8.4-10.2) mg/dL Total Bilirubin 1.1 (0.2-1.3) mg/dL AST 32 (14-36) U/L ALT 36 H (6-35) U/L Alkaline Phosphatase 100 (38-126) U/L Total Protein 9.0 H (6.3-8.2) g/dL Albumin 4.2 (3.5-5.1) g/dL Lipase 52 (23-300) U/L Urine Col
[2023-09-16 16:31] LABS: Basophils Percent Auto 0.2 % (0.2-1.2); Eosinophils Percent Auto 0.3 % (0-4.4); Hematocrit 42.7 % (37.0-47.0); Hemoglobin 12.5 g/dL (12.0-15.0); Immature Granulocyte Absolute 0.02 K/mm3 (0.00-0.031); Immature Granulocyte Percent A 0.3 % (0-0.5); Lymphocytes Absolute Auto 1.59 K/mm3 (0.9-3.2); Lymphocytes Percent Auto 23.9 % (18.3-44.2); Mean Corpuscular HGB Conc 29.3 g/dl (32-36); Mean Corpuscular Hemoglobin 24.6 pg (26-34); Mean Corpuscular Volume 83.9 fl (80-100); Mean Platelet Volume 11.7 fl (7.4-10.4); Monocytes Absolute Auto 0.5 K/mm3 (0.1-0.6); Monocytes Percent Auto 8.1 % (2.6-8.5); Neutrophils Absolute Auto 4.5 K/mm3 (1.3-6.7); Neutrophils Percent Auto 67.2 % (45.5-73.1); Platelet Count Result 264 k/mm3 (150-375); Red Blood Count 5.09 M/mm3 (4.2-5.4); White Blood Count 6.7 K/mm3 (4.5-10.0)
[2023-09-16 16:38] LABS: Appearance Urine Clear (Clear); Bacteria Urine 1+ /hpf; Bilirubin Urine Negative (Negative); Blood Urine 2+ (Negative); Color Urine Yellow (Yellow); Glucose Urine UA Negative (Negative); Ketones Urine Trace mg/dL (Negative); Leukocyte Esterase Ur Trace LEU/UL (Negative); Nitrate Urine Negative (Negative); Non Pathogenic Casts 0-2; Protein Urine Trace mg/dL (Negative); RBC Urine 0-2 /hpf (0-2); Specific Grav Ur 1.024 (1.001-1.035); Squamous Epithelial Cell Urine Few /hpf (Few); WBC Urine 0-5 /hpf; pH Urine 7.5 (5.0-9.0)
[2023-09-16 16:48] LABS: Add Urine Microscopic? YES
[2023-09-16 16:52] LABS: Hypochromasia 1+ (NORMAL); Platelet Estimate Adequate (Adequate); Schistocytes None Seen (NORMAL)
[2023-09-16 16:53] LABS: Anisocytosis 2+ (NORMAL)
[2023-09-16 16:57] LABS: Alanine Aminotransferase 36 U/L (6-35); Albumin Level 4.2 g/dL (3.5-5.1); Alkaline Phosphatase 100 U/L (38-126); Anion Gap 8 mmol/L (8-16); Aspartate Amino Transferase 32 U/L (14-36); Bilirubin,Total 1.1 mg/dL (0.2-1.3); Blood Urea Nitrogen 10 mg/dL (7-17); Calcium 9.8 mg/dL (8.4-10.2); Carbon Dioxide 27 mmol/L (22-30); Chloride 102 mmol/L (98-107); Estimated CRCL calculation 110 ml/min; Estimated Glomerular Filt Rate > 60; Glucose 112 mg/dL (65-110); Lipase 52 U/L (23-300); Potassium 4.4 mmol/L (3.4-5.0); Sodium 137 mmol/L (137-145)
[2023-09-16 17:23] LABS: Influenza A QL RT-PCR Negative (Negative); Influenza B QL RT-PCR Negative (Negative); RSV RNA, RT-PCR Negative (Negative); SARS-CoV-2 RNA PCR Negative (Negative)
[2023-09-16 19:41] VITALS: BP 135/77; PULSE 94; RESP 16; TEMP 36.4; O2SAT 100
--- NOTE | 2023-09-16 20:42 | PC.NURSE ---
pt states they would like their iv removed because they need to go. pt states they will follow up with PCP and are not able to stay in the ER any longer. educated pt on symptoms that warrant a return to the ED
--- NOTE | 2023-09-16 20:44 | PC.NURSE ---
Patient asked for pain medication around 2029. Notified EDP YADIRA Gongora.
--- NOTE | 2023-09-16 20:46 | ED.ABDPAIN ---
HPI - Abdominal Pain General Chief Complaint: Abdominal Pain Stated Complaint: abd pain Time Seen by Provider: 09/16/23 16:11 Source: patient Mode of arrival: ambulatory Limitations: no limitations Related Data Allergies Allergy/AdvReac Type Severity Reaction Status Date / Time No Known Allergies Allergy Verified 07/24/23 07:22 [facility] Past Medical History Medical History Diabetes mellitus Social History Social History Smoking status: Never smoker Alcohol intake: current Substance use: never Course Vital Signs Vital signs: Vital Signs Temperature 36.7 C 09/16/23 15:19 Pulse Rate 127 H 09/16/23 15:19 Respiratory Rate 18 09/16/23 15:19 Blood Pressure 148/97 H 09/16/23 15:19 Pulse Oximetry 100 09/16/23 15:19 Oxygen Delivery Room Air 09/16/23 15:19 Temperature 36.4 C 09/16/23 19:41 Pulse Rate 94 09/16/23 19:41 Respiratory Rate 16 09/16/23 19:41 Blood Pressure 135/77 09/16/23 19:41 Pulse Oximetry 100 09/16/23 19:41 Oxygen Delivery Room Air 09/16/23 15:19 MDM - Abdominal Pain Lab Data 09/16/23 16:23 09/16/23 16:23 Labs: Lab Results 09/16/23 Range/Units 16:23 WBC 6.7 (4.5-10.0) K/mm3 RBC 5.09 (4.2-5.4) M/mm3 Hgb 12.5 (12.0-15.0) g/dL Hct 42.7 (37.0-47.0) % MCV 83.9 (80-100) fl MCH 24.6 L (26-34) pg MCHC 29.3 L (32-36) g/dl RDW 16.0 H (11.5-14.5) % Plt Count 264 (150-375) k/mm3 MPV 11.7 H (7.4-10.4) fl Immature Gran % (Auto) 0.3 (0-0.5) % Neut % (Auto) 67.2 (45.5-73.1) % Lymph % (Auto) 23.9 (18.3-44.2) % [place] % (Auto) 8.1 (2.6-8.5) % Eos % (Auto) 0.3 (0-4.4) % Baso % (Auto) 0.2 (0.2-1.2) % Lymph # (Auto) 1.59 (0.9-3.2) K/mm3 [place] # (Auto) 0.5 (0.1-0.6) K/mm3 Eos # (Auto) 0.0 (0-0.3) K/mm3 Baso # (Auto) 0.0 (0.0-0.1) K/mm3 Abs Immat Gran (auto) 0.02 (0.00-0.031) K/mm3 Absolute Neuts (auto) 4.5 (1.3-6.7) K/mm3 Absolute Nucleated RBC 0.0 (0.0-0.012) K/mm3 Nucleated RBC % 0.0 (0.0-0.2) % Platelet Estimate Adequate (Adequate) Hypochromasia 1+ (NORMAL) Anisocytosis 2+ (NORMAL) Schistocytes None seen (NORMAL) Sodium 137 (137-145) mmol/L Potassium 4.4 (3.4-5.0) mmol/L Chloride 102 (98-107) mmol/L Carbon Dioxide 27 (22-30) mmol/L Anion Gap 8 (8-16) mmol/L BUN 10 (7-17) mg/dL Creatinine 0.90 (0.7-1.0) mg/dL Estim Creat Clear Calc 110 ml/min Estimated GFR > 60 (59 - ) Glucose 112 H (65-110) mg/dL Calcium 9.8 (8.4-10.2) mg/dL Total Bilirubin 1.1 (0.2-1.3) mg/dL AST 32 (14-36) U/L ALT 36 H (6-35) U/L Alkaline Phosphatase 100 (38-126) U/L Total Protein 9.0 H (6.3-8.2) g/dL Albumin 4.2 (3.5-5.1) g/dL Lipase 52 (23-300) U/L Urine Color Yellow (Yellow) Urine Appearance Clear (Clear) Urine pH 7.5 (5.0-9.0) Ur Specific [place] 1.024 (1.001-1.035) Urine Protein Trace (Negative) mg/dL Urine Glucose (UA) Negative (Negative) mg/dL Urine Ketones Trace H (Negative) mg/dL Ur Blood (Man) 2+ H (Negative) Urine Nitrate Negative (Negative) Urine Bilirubin Negative (Negative) Urine Urobilinogen 1.0 (<2.0) mg/dL Leukocyte Esterase Rfl Trace H (Negative) CHRISTOPHE/UL Urine RBC 0-2 (0-2) /hpf Urine WBC 0-5 /hpf Ur Squamous Epith Cells Few (Few) /hpf Urine Bacteria 1+ H /hpf Urine Casts 0-2 Influenza A (RT-PCR) Negative (Negative) Influenza B (RT-PCR) Negative (Negative) RSV (RT-PCR) Negative (Negative) SARS-CoV-2 RNA (RT-PCR) Negative (Negative) Imaging Data Radiologist's impression: ITS Impressions Abdomen/Pelvis CT 09/16/23 16:50 IMPRESSION: Stable right adrenal mass since 07/24/2023 Pelvic/Transvag US 09/16/23 17:34 IMPRESSION: Pain with transducer pressure over the cervix, correlate for clinica
[2023-09-25 12:33] LABS: Estimated CRCL calculation 99 ml/min; Estimated Glomerular Filt Rate > 60
== END 2023-09-17 00:22 | disposition left against medical advice (07) ==
LOC: ANHED 20:50
PROVIDERS: Physician Assistant; Emergency Provider Emergency Medicine; PCP Physician Assistant
DX: R10.31 Right lower quadrant pain (principal); E11.9 Type 2 diabetes mellitus without complications; Z20.822 Contact with and (suspected) exposure to COVID-19
CPT/HCPCS: 36415; 74177; 76830; 76856; 80053; 81001; 82565; 83690; 85025; 87637; 99284; Q9967

== ENCOUNTER 2023-12-09 09:21 | Outpatient (CLI) | payer OTHER, SELFPAY ==
--- NOTE | ~2023-12-09 | XR_ITS ---
EXAMINATION: XR chest 2V 12/09/2023 09:45 INDICATION: Tuberculosis screening PROCEDURE: 2 view chest COMPARISON: No prior studies for comparison. FINDINGS: The lungs are clear. The cardiomediastinal silhouette is within normal limits. There are no pleural effusions. There is no pneumothorax suspected. IMPRESSION: 1: NO ACUTE CARDIOPULMONARY DISEASE. Reviewed, dictated and finalized at location B.
== END 2023-12-09 09:22 | disposition home or self-care (01) ==
PROVIDERS: PCP Physician Assistant
DX: Z11.1 Encounter for screening for respiratory tuberculosis (principal)
CPT/HCPCS: 71046

== ENCOUNTER 2024-10-11 08:08 | Outpatient (CLI) | payer OTHER, SELFPAY ==
--- NOTE | ~2024-10-11 | XR_ITS ---
Right Knee Technique: AP, lateral, and sunrise views were obtained. Clinical History: Pain Findings: No fracture or dislocation is seen. Osseous alignment is anatomic. Joint spaces are preserv ed without degenerative or erosive change. Soft tissues are unremarkable. No joint effusion is seen. Impression: Unremarkable right knee radiographs. Reviewed, dictated and finalized at location . ECT MANAGEMENT CONSULTANT Impression: Unremarkable right knee radiographs.
--- NOTE | ~2024-10-11 | XR_ITS ---
Left Knee Technique: AP, lateral, and sunrise views were obtained. Clinical History: Pain Findings: No fracture or dislocation is seen. Osseous alignment is anatomic. Joint spaces are preserv ed without degenerative or erosive change. Soft tissues are unremarkable. No joint effusion is seen. Impression: Unremarkable left knee radiographs. Reviewed, dictated and finalized at location . ESALER Impression: Unremarkable left knee radiographs.
--- OUTSIDE RECORDS SUMMARY | 2024-10-11 08:19 | XMS_ITS | Clinical Summary ---
Author Organization [facility] Address [address] [place] [id number] Care Team Providers Care Terminal Operations Manager Name Role Phone Rocio Rincon MD Primary Care Provider [phone] Social History Tobacco Use Types Packs/Day Years Used Date Smoking Tobacco: Never Assessed Comments Unknown Sex and Gender Information Value Date Recorded Sex Assigned at Not on file Legal Sex Female 8:29 PM CDT Gender Identity Not on file Sexual Orientation Not on file Plan of Treatment Health Maintenance Due Date Last Done Comments Cervical Cancer Screening Pa p Smear (Age 30 to 64) Every 3 Years 1992 Annual Physical 1995 Hepatitis C 2010 DTaP, Tdap and Td Vaccines ( 1 - Tdap) 2011 Hepatitis B Vaccines (1 of 3 - 19+ 3-dose series) 2011 Cervical Cancer Screening Pa p with HPV Testing (Age 30 to 64) Every 5 Years 2022 Cervical Cancer Screening with HPV 2022 COVID-19 Vaccine ( - 2023-2 5 season) 2024 Influenza Adult (#1) 2024 HPV Vaccines Aged Out No longer eligi ble based on patient's age to complete this topic Meningococcal B Vaccine Aged Out No l onger eligible based on patient's age to complete this topic Meningococcal Vaccine Aged Out No milan francisco javier eligible based on patient's age to complete this topic Pneumococcal Vaccine: Pediat rics (0 to 5 Years) and At-Risk Patients (6 to 64 Years) Aged Out No longer eligible b ased on patient's age to complete this topic RSV Immunizations Under 20 Months Aged Out No longer eligible based on patient's age to complete this topic Insurance [facility] Care Teams Terminal Operations Manager Relationship Specialty Start Date End Date Rocio Rincon MD [address] [facility] [id number] [place] [address] PCP - General 09/09/16
--- OUTSIDE RECORDS SUMMARY | 2024-10-11 08:19 | XMS_ITS | Referral Summary ---
Author Organization [facility] [address] [place] [address] 162 Address [address] [place] [address] Care Team Providers Care Field Support Specialist Name Role Phone Araceli Guzmán Primary Care Provider + Encounters Date Type Department Care Team Description 09/21/2024 3:00 PM JOURNEYMAN PRESS OPERATOR Office Visit [facility] Cardiology [address] [facility] [address] [place] [address] Paradise Ludwig NP Sinus tachycardia (Primary Dx) 09/07/2024 9:34 AM JOURNEYMAN PRESS OPERATOR - 09/07/2024 11:49 AM JOURNEYMAN PRESS OPERATOR Emergency [address] [address] Gastroenteritis (Primary Dx) Discharge Disposition: Discharge to home or self care 08/16/2024 3:00 PM JOURNEYMAN PRESS OPERATOR Ancillary Procedure [facility] Cardiology at [address] [place] [address] Tachycardia, unspecified 08/16/2024 3:30 PM JOURNEYMAN PRESS OPERATOR Office Visit [facility] Cardiology at [address] [place] [id number] Mp Borja MD Tachycardia, unspecified from Last 3 Months Allergies Active Allergy Reactions Criticality Noted Date Comments Corticosteroids (Glucocorticoids) Other (See comments) Low 08/16/2024 diabetes Medications OneTouch Verio test strips strip USE 1 STRIP TWICE A DAY 3 Active ferrous sulfate 325 mg (65 mg of elemental iron) tablet 3 Active OneTouch Delica Plus Lancet 30 gauge misc USE TO CHECK BLOOD GLUCOSE TWICE DAILY 3 Active albuterol HFA (PROVENTIL HFA,VENTOLIN HFA,PROAIR HFA) 90 mcg/actuation inhaler INHALE 2 PUFFS EVERY 4 6 HOURS BY INHALATION ROUTE NEEDED. Active Trulicity 3 mg/0.5 mL pen injector 4 Active ketorolac (TORADOL) 10 mg tablet Take 1 tablet (10 mg total) by mouth every 6 (six) hours as needed for pain 20 tablet 1 4 Active cholecalciferol (VITAMIN D-3) 2000 unit tablet daily Active Active Problems Problem Noted Date Diagnosed Date Tachycardia, unspecified 08/16/2024 Pre-existing type 2 diabetes mellitus during in third trimester 07/25/2022 Asthma 07/25/2022 PCOS (polycystic ovarian syndrome) 07/25/2022 Abnormal uterine bleeding (AUB) 07/25/2022 Social History Tobacco Use Types Packs/Day Years Used Date Smoking Tobacco: Never Cigarettes Smokeless Tobacco: Never Tobacco Cessation:Counseling Given: Not Answered Personal Safety Answer Date Recorded Have you ever been in or are you currently in a harmful physical or emotional relationship or is someone making you feel afraid or unsafe? Denies 09/07/2024 Comments No Sex and Gender Information Value Date Recorded Sex Assigned at Not on file Legal Sex Female 7:51 PM JOURNEYMAN PRESS OPERATOR Gender Identity Female 08/09/2024 6:46 AM JOURNEYMAN PRESS OPERATOR Sexual Orientation Straight 08/09/2024 6: 46 AM JOURNEYMAN PRESS OPERATOR Last Filed Vital Signs Vital Sign Reading Time Taken Comments Blood Pressure 128/80 09/21/2024 2:57 PM JOURNEYMAN PRESS OPERATOR Pulse 82 09/21/2024 2:57 PM JOURNEYMAN PRESS OPERATOR Temperature 36.9 C (98.4 F) 09/07/2024 8:52 AM JOURNEYMAN PRESS OPERATOR Respiratory Rate 16 09/07/2024 9:40 AM JOURNEYMAN PRESS OPERATOR Oxygen Saturation 97% 09/21/2024 2:57 PM JOURNEYMAN PRESS OPERATOR Inhaled Oxygen Concentration - - Weight 128.8 kg (284 lb) 09/21/2024 2:57 PM JOURNEYMAN PRESS OPERATOR Height 170.2 cm (5' 7 ) 09/21/2024 2:57 PM JOURNEYMAN PRESS OPERATOR Body Mass Index 44.48 09/21/2024 2:57 PM JOURNEYMAN PRESS OPERATOR Plan of Treatment Not on file Procedures Procedure Name Priority Date/Time Associated Diagnosis Comments POCT HCG, URINE STAT 09/07/2024 10:16 AM JOURNEYMAN PRESS OPERATOR URINALYSIS, MICROSCOPIC ONLY STAT 09/07/2024 10:16 AM JOURNEYMAN PRESS OPERATOR URINALYSIS AND REFLEX TO MICROSCOPIC AND CULTURE STAT 09/07/2024 10:16 AM JOURNEYMAN PRESS OPERATOR EGFR STAT 09/07/2024 9:13 AM JOURNEYMAN PRESS OPERATOR DIFFERENTIAL AUTO STAT 09/07/2024 9:1 3 AM JOURNEYMAN PRESS OPERATOR LIPASE STAT 09/07/2024 9:13 AM JOURNEYMAN PRESS OPERATOR COMPREHENSIVE METABOLIC PANEL STAT 09/07/2024 9:13 AM JOURNEYMAN PRESS OPERATOR CBC WITH AUTO DIFFERENTIAL STAT 09/07/2024 9:13 AM JOURNEYMAN PRESS OPERATOR INFLUENZA A/B, RSV, AND COVID-19 PCR STAT 09/07/2024 8:37 AM JOURNEYMAN PRESS OPERATOR HOLTER MONITOR 48 HR Routine 08/16/2024 3:55 PM JOURNEYMAN PRESS OPERATOR Tachycardia, unspecified ECG 12-LEAD Routine 08/16/2024 3:55 PM JOURNEYMAN PRESS OPERATOR Tachycardia, unspecified POCT LIPID PANEL Routine 08/16/2024 3:26 PM JOURNEYMAN PRESS OPERATOR Tachycardia, unspecified HEMOGLOBIN A1C Routine 09/22/2023 9:46 AM JOURNEYMAN PRESS OPERATOR Abnormal uterine bleeding (AUB) HIGH RISK HPV DNA DETECTION WITH GENOTYPING Routine 09/22/2023 9:37 AM JOURNEYMAN PRESS OPERATOR Well woman exam with routine gynecological exam HEPATITIS C ANTIBODY Routine 12/13/2016 1:24 PM CDT from Last 3 Months or Most Recently Relevant to Health Maintenance Results * (ABNORMAL) Urinalysis reflex to microscopic and culture Urine (09/07/2024 10:16 AM JOURNEYMAN PRESS OPERATOR) Color, ur Yellow Yellow Clarity, ur Cloudy(A) Clear [facility] Specific gravity, ur 1.039(H) 1.003 - 1.030 [facility] pH, urine 5.5 [facility] Comment: Interpretive Data U rine pH is affected by diet, medications, systemic acid-base disturbances, and renal tubular function. pH may affect urinary stone formation. For example, urine pH below 6.0 may help reduce the tendency for calcium phosphate stones and pH greater than 6.0 may reduce the tendency for uric acid stone formation. Source: [facility] Current Interpretive Data was last revised on 2017 Protein, ur ql 1+(A) Negative [facility] Glucose, ur ql Negative Negative [facility] Ketones, ur Negative Negative [facility] Bilirubin, ur Negative Negative [facility] Blood, ur 3+(A) Negative [facility] Urobilinogen, ur 2.0(A) <2.0 mg/dL [facility] Nitrite, ur Negative Negative [facility] Leukocyte esterase, ur Negative Negative [facility] UA reflex comment Reflex to microscopic UA will be performed. [facility] Urine 09/07/2024 10:1 6 AM JOURNEYMAN PRESS OPERATOR 09/07/2024 10:24 AM JOURNEYMAN PRESS OPERATOR us Nora MAY LAB MICROBIOLOGY - GENERAL ORDER MARIA E Final Result [facility] [address] [facility] Department [place] [address] * (ABNORMAL) Urinalysis, microscopic only (09/07/2024 10:16 AM JOURNEYMAN PRESS OPERATOR) WBC, ur 0-5 0 - 5 /HPF RBC, ur 3-5(A) 0 - 2 /HPF [facility] Epithelial cells, squamous, ur 11-20(A) 0 - 5 /HPF [facility] Comment:Suggestive of contam ination. Consider recollection by clean catch. Mucous, ur Present(A) [facility] Calcium oxalate crystals, ur 4+(A) [facility] Culture Reflex Comment Reflex conditions for urine culture (WBC >10) not met. [facility] Urine 09/07/2024 10:1 6 AM JOURNEYMAN PRESS OPERATOR 09/07/2024 10:24 AM JOURNEYMAN PRESS OPERATOR us oNra MAY LAB URINE ORDERABLES Final Resul t Performing Organization Address City/[facility]/ZIP Co de Phone Number MARY [address] Department [place] [address] * POCT hCG, urine (09/07/2024 10:16 AM JOURNEYMAN PRESS OPERATOR) HCG, ur, POC Negative Negative Lot Number [id number] QC Backgroud Clear Acceptable QC Control Line Acceptable Urine 09/07/2024 10:1 6 AM JOURNEYMAN PRESS OPERATOR us Nora MAY POINT OF CARE TEST ORDERABLES Fi nal Result * eGFR (09/07/2024 9:13 AM JOURNEYMAN PRESS OPERATOR) eGFR >90 >=60 mL/min/1. 73 m2 Comment: Interpretive Data Reference Interval Normal >/= 90 mL/min/1.73m2 Mildly decreased* 60 - 89 mL/min/1.73m2 Mildly to moderately decreased 45 - 59 mL/min/1.73m2 Moderately to severely decreased 30 - 44 mL/min/1.73m2 Severely decreased 15 - 29 mL/min/1.73m2 Kidney Failure < 15 mL/min/1.73m2 *Relative to young adult level Estimated glomerular filtration rate is determined by the 2020 CKD-EPI equation recommended by the National Kidney Foundation (A Unifying Approach to GFR Estimation: Recommendations of the NKF-ASK Task Force on Reassessing the Inclusion of Race in Diagnosing Kidney Disease, JASN 2020). The CKD-EPI equation should not be used for patients with unstable renal function and has not been validated in children and those over 70. Current interpretive data was last reviewed 2021. Blood 09/07/2024 9:13 AM JOURNEYMAN PRESS OPERATOR 09/07/2024 9:15 AM JOURNEYMAN PRESS OPERATOR us Nora MAY LAB BLOOD ORDERABLES Final Resul t [facility] Department [place] [address] * Differential, auto (09/07/2024 9:13 AM JOURNEYMAN PRESS OPERATOR) Neutrophil abs 3.7 1.5 - 6.5 K/cumm Imm gran abs 0.0 0.0 - 0.1 K/cumm [facility] Lymphocyte abs 1.7 0.8 - 3.3 K/cumm [facility] Monocyte abs 0.6 0.2 - 0.8 K/cumm [facility] Eosinophil abs 0.0 0.0 - 0.5 K/cumm [facility] Basophil abs 0.0 0.0 - 0.1 K/cumm [facility] Neutrophil pct 61.2 % [facility] Comment: Interpretive Data Percent cell count reference ranges are not reported, since discordance with absolute values may lead to misinterpretation of CBC data. Current Interpretive Data was last revised on 2017. Imm gran pct 0.3 % [facility] Comment: Interpretive Data Percent cell count reference ranges are not reported, since discordance with absolute values may lead to misinterpretation of CBC data. Current Interpretive Data was last revised on 2017. Lymphocyte pct 28.4 % [facility] Comment: Interpretive Data Percent cell count reference ranges are not reported, since discordance with absolute values may lead to misinterpretation of CBC data. Current Interpretive Data was last revised on 2017. Monocyte pct 9.9 % [facility] Comment: Interpretive Data Percent cell count reference ranges are not reported, since discordance with absolute values may lead to misinterpretation of CBC data. Current Interpretive Data was last revised on 2017. Eosinophil pct 0.2 % [facility] Comment: Interpretive Data Percent cell count reference ranges are not reported, since discordance with absolute values may lead to misinterpretation of CBC data. Current Interpretive Data was last revised on 2017. Basophil pct 0.0 % [facility] Comment: Interpretive Data Percent cell count reference ranges are not reported, since discordance with absolute values may lead to misinterpretation of CBC data. Current Interpretive Data was last revised on 2017. Blood 09/07/2024 9:13 AM JOURNEYMAN PRESS OPERATOR 09/07/2024 9:15 AM JOURNEYMAN PRESS OPERATOR Nora MAY LAB BLOOD ORDERABLES Final Resul t Performing Organization Address [facility] de Phone Number MARY [address] [address] * (ABNORMAL) CBC with auto differential (09/07/2024 9:13 AM JOURNEYMAN PRESS OPERATOR) Pathologist [facility] WBC 6.1 3.8 - 9.9 K/cumm Hgb 11.6(L) 11.9 - 15.5 g/dL [facility] Hct 40.0 35.6 - 45.5 % [facility] Plt 241 150 - 400 K/cumm [facility] MPV 11.0 9.1 - 12.3 fL [facility] RBC 4.81 3.90 - 5.20 M/cumm [facility] MCV 83.2 81.3 - 96.4 fL [facility] MCH 24.1(L) 27.1 - 33.3 pg [facility] MCHC 29.0(L) 32.3 - 35.7 g/dL [facility] RDW CV 16.6(H) 11.1 - 14.9 % [facility] RDW SD 50.1(H) 35.7 - 48.1 fL [facility] NRBC abs 0.00 0.00 - 0.01 K/cumm [facility] Blood 09/07/2024 9:13 AM JOURNEYMAN PRESS OPERATOR 09/07/2024 9:15 AM JOURNEYMAN PRESS OPERATOR Nora Clemnos PA LAB BLOOD ORDERABLES Final Resul t Performing Organization Address City/[facility] Co de Phone Number MARY [address] [place] [address] * Lipase (09/07/2024 9:13 AM JOURNEYMAN PRESS OPERATOR) [facility] Lipase 29 10 - 99 Units/L Blood 09/07/2024 9:13 AM JOURNEYMAN PRESS OPERATOR 09/07/2024 9:15 AM JOURNEYMAN PRESS OPERATOR Nora Deonte PA LAB BLOOD ORDERABLES Final Resul t Performing Organization Address [facility]/ZIP Co de Phone Number MARY [address] [facility] [place] [address] * Comprehensive metabolic panel (09/07/2024 9:13 AM JOURNEYMAN PRESS OPERATOR) Sodium 138 135 - 145 mmol/L Potassium, pl 4.0 3.3 - 4.9 mmol/L [facility] Chloride 105 97 - 110 mmol/L [facility] CO2 26 22 - 32 mmol/L [facility] Anion gap 7 2 - 15 mmol/L [facility] BUN 11 6 - 25 mg/dL [facility] Creatinine 0.84 0.60 - 1.10 mg/dL [facility] Glucose 104 70 - 199 mg/dL [facility] Comment: Interpretive Data Fasting glucose >/= 126 mg/dl is diagnostic for diabetes. Fasting is defined as no caloric intake for at least 8 hours. Fasting glucose between 100 mg/dl to 125 mg/dl is diagnostic of prediabetes. In a patient with classic symptoms of hyperglycemia or hyperglycemic crisis, a random glucose >/= 200 mg/dl is diagnostic for diabetes. In the absence of unequivocal hyperglycemia, results should be confirmed by repeat testing. The classification and Diagnosis of Diabetes Diabetes Care 202; 46: S19-S40. Current interpretive data was last revised 2022. Calcium 9.2 8.5 - 10.3 mg/dL [facility] Bilirubin, total 0.3 0.1 - 1.2 mg/dL [facility] Protein, pl 7.8 6.5 - 8.5 g/dL [facility] Albumin 3.7 3.5 - 5.0 g/dL [facility] Alk phos 97 40 - 130 Units/L [facility] ALT 21 7 - 45 Units/L [facility] AST 20 10 - 45 Units/L [facility] Blood 09/07/2024 9:13 AM JOURNEYMAN PRESS OPERATOR 09/07/2024 9:15 AM JOURNEYMAN PRESS OPERATOR us Nora MAY LAB BLOOD ORDERABLES Final Resul t Performing Organization Address [facility]/ZIP Co de Phone Number MARY [address] [facility] [place] [address] * Influenza A/B, RSV, and COVID-19 PCR Nasopharyngeal (09/07/2024 8:37 AM JOURNEYMAN PRESS OPERATOR) COVID-19 RNA Negative Negative Influenza A RNA Negative Negative [facility] Influenza B RNA Negative Negative [facility] RNA Negative Negative [facility] Comment: Interpretive data: Testing performed by [facility]. This test is performed using the [employer] Xpert Xpress CoV-2/Flu/RSV plus assay. This is a multiplex, real-time reverse transcriptase PCR assay intended for the qualitative detection of nucleic acid from SARS-CoV-2, influenza A, influenza B, and respiratory syncytial virus. This assay has been cleared by the [place] Food and Drug administration. The performance characteristics have been verified by the [facility]. Results must be considered in the clinical context, and a negative result does not rule out infection. Interpretive Data last revised 2023 Nasopharyngeal 09/07/2024 8: 37 AM JOURNEYMAN PRESS OPERATOR 09/07/2024 8:42 AM JOURNEYMAN PRESS OPERATOR Narrative [facility] - 09/07/2024 9:20 AM JOURNEYMAN PRESS OPERATOR Is the Patient experiencing symptoms consistent with COVID?->Yes us Abhay Lance MD LAB MICROBIOLOGY - GENERAL ORDER MARIA E Final Result [facility] [address] [facility] Department [place] [address] * 48 HR Holter Monitor (08/16/2024 3:55 PM JOURNEYMAN PRESS OPERATOR) Anatomical Region Laterality Modality Electrocardiogra phy Narrative 08/26/2024 12:20 PM JOURNEYMAN PRESS OPERATOR Images from the original result were not included. AMBULATORY ROOM SERVER REPORT Patient Name: Tara Ta Date of : 1990 Requesting Physician: Mp Borja M.D. Date of Interpretation: 08/26/24 Type of Monitor: 48 Hour Monitor Date of the Study / Enrollment Period: 08/16/2024 to 08/18/2023 Indication: Tachycardia, unspecified Quality of the Study: Average. Total analysis time of 1 day, 21 hours, and 1 minute. Interpretation: Predominant rhythm is sinus rhythm. The average heart rate was 99 beats per minute. The minimum heart rate was 60 beats per minute. The maximum heart rate was 171 beats per minute. No evidence of atrial fibrillation, SVT, pauses, heart block, or ventricular tachycardia. The PAC burden is <1%. The PVC burden is <1%. Patient reported 30 events during the monitoring period. Patient reported symptoms of chest pain / pressure, flutter or skipped beats, rapid heartbeat; some episodes had no symptoms specified. Most symptomatic episodes correlated to sinus tachycardia with a heart rate range of 100 bpm to 167 bpm. A few of these symptomatic episodes correlate to sinus rhythm with a heart rate range of 95 bpm to 99 bpm. Conclusions: Sinus rhythm with an average heart rate of 99 beats per minute. PAC burden of <1%. PVC burden of <1%. No other arrhythmias. Patient's symptoms mostly correlate to sinus tachycardia. Shahbaz Sanchez M.D., [facility] 08/26/24 Procedure Note Shahbaz Sanchez MD - 08/26/2024 Images from the original note were not included. AMBULATORY ROOM SERVER REPORT Patient Name: Tara Ta Date of : 1990 Requesting Physician: Mp Borja M.D. Date of Interpretation: 08/26/24 Type of Monitor: 48 Hour Monitor Date of the Study / Enrollment Period: 08/16/2024 to 08/18/2023 Indication: Tachycardia, unspecified Quality of the Study: Average. Total analysis time of 1 day, 21 hours, and1 minute. Interpretation: Predominant rhythm is sinus rhythm. The average heart rate was 99 beatsper minute. The minimum heart rate was 60 beats per minute. The maximumheart rate was 171 beats per minute. No evidence of atrial fibrillation, SVT, pauses, heart block, orventricular tachycardia. The PAC burden is <1%. The PVC burden is <1%. Patient reported 30 events during the monitoring period. Patient reportedsymptoms of chest pain / pressure, flutter or skipped beats, rapidheartbeat; some episodes had no symptoms specified. Most symptomaticepisodes correlated to sinus tachycardia with a heart rate range of 100bpm to 167 bpm. A few of these symptomatic episodes correlate to sinusrhythm with a heart rate range of 95 bpm to 99 bpm. Conclusions: Sinus rhythm with an average heart rate of 99 beats per minute. PAC burden of <1%. PVC burden of <1%. No other arrhythmias. Patient's symptoms mostly correlate to sinus tachycardia. Shahbaz Sanchez M.D., [facility] 08/26/24 Mp Borja MD CV CARDIAC SERVICES PROC EDURES Final Result * ECG 12 lead (08/16/2024 3:55 PM JOURNEYMAN PRESS OPERATOR) Mp Borja MD ECG ORDERABLES Final Re sult * POCT lipid panel (08/16/2024 3:26 PM JOURNEYMAN PRESS OPERATOR) Cholesterol, POC 172 mg/dL HDL, POC 49 mg/dL Triglycerides, POC 88 mg/dL LDL Cholesterol POC 106 mg/dL Chol/HDL Ratio, POC 3.5 Non-HDL Cholesterol, POC 123 mg/dL Cholesterol Total, POC 172 mg/dL Capillary blood 08/16/2024 3 :26 PM JOURNEYMAN PRESS OPERATOR Mp Borja MD POINT OF CARE TEST ORDER MARIA E Final Result * (ABNORMAL) Hemoglobin A1c (09/22/2023 9:46 AM JOURNEYMAN PRESS OPERATOR) Hgb A1C 6.0(H) 4.0 - 5.6 % MARY Comment:Testing performed by : [address] [address] Estimated Average Glucose 126 mg/dL MARY Comment: The ADA recommends reporting an estimated Average Glucose (eAG) with all Hemoglobin A1c results using the equation derived from a study of 507 normal and diabetic adults. Minority populations were underrepresented and children were not included. (Diabetes Care 31:2714-7663, 2008). The eAG is not equivalent to a fasting glucose. Testing performed by: [address] [address] Blood 09/22/2023 9:46 AM JOURNEYMAN PRESS OPERATOR 09/22/2023 12:02 PM JOURNEYMAN PRESS OPERATOR us Kendy Pablo MD LAB BLOOD ORDERABLES Final Res ult MARY [facility] [address] [facility] Department [place] [address] * (ABNORMAL) High Risk HPV DNA Detection with Genotyping (Molecular component) (09/22/2023 9:37 AM JOURNEYMAN PRESS OPERATOR) HPV HR 16 Not Detected Not Detected MARY Comment:Testing performed by : [facility], [address] [place]., [address] HPV HR 18 Not Detected Not Detected MARY Comment:Testing performed by : [facility], [address] [facility], [address] HPV HR Non 16/18 Detected(A) Not Detected MARY Comment: Interpretive Data Nucleic acid amplification for detection of high-risk Human Papilloma virus (HPV) is performed by the Benigno Annetta 6800 HPV test. This assay specifically detects HPV-16 and HPV-18 genotypes. The following HPV genotypes are detected as high-risk HPV: HPV-31, 33, 35, ,39, 45, 51, 52, 56, 58, 59, 66, and 68. This assay has been approved by the [place] Food and Drug Administration for detection of HPV in cervical specimens collected by a physician using an endocervical brush/spatula or cervical broom and placed in the ThinPrep Pap Test PreservCyt collection containers. The performance characteristics of this test have been verified by the [facility] Molecular Infectious Disease laboratory. Correlate with separately reported cytology results, as applicable. Interpretive data last revised 23 Testing performed by: [facility], [address] [place]., [address] Endocervical 09/22/2023 9:37 AM JOURNEYMAN PRESS OPERATOR 09/23/2023 9:23 AM JOURNEYMAN PRESS OPERATOR Narrative MARY - 09/24/2023 12:05 AM JOURNEYMAN PRESS OPERATOR Clinical history and diagnosis->screening Number of vials->1 Testing type->Screening Last menstrual period (date if known)->09/09/2023 us Kendy Pablo MD LAB BODY FLUIDS AND STOOLS ORD ERABLES Final Result Performing Organization Address [facility] Co de Phone Number MARY [address] [facility] Department [place] [address] * Hepatitis C antibody (12/13/2016 1:24 PM CDT) Hep C Ab NON-REACTI VE NON-REACTI VE [facility] HISTORICAL RESULTS SIGNAL TO CUT-OFF 0.03 <1.00 [facility] HISTORICAL RESULTS 12/13/2016 1:24 PM CDT 12/16/2016 1:15 PM CDT Narrative [facility] HISTORICAL RESULTS - 12/16/2016 1:00 PM CDT LTC ONLY: NURSE COLLECTED - NO SPECIMEN PROVIDED. PERFORMING LAB: [place], [facility] [address], [place] [address] Kp Vargas D.O., MPH us Antonia Hoff MD LAB MICROBIOLOGY - GENERAL O RDERABLES Final Result Performing Organization Address [facility] Co de Phone Number [facility] HISTORICAL RESULTS from Last 3 Months or Most Recently Relevant to Health Maintenance Insurance [facility] Care Teams Field Support Specialist Relationship Specialty Start Date End Date Araceli Guzmán PA PCP - General Physician Medical Device 07/25/22
--- OUTSIDE RECORDS SUMMARY | 2024-10-11 08:19 | XMS_ITS | Clinical Summary ---
Author Organization [facility] [address] Address [address] [place] [address] Care Team Providers Care Front Clerk Name Role Phone Araceli Guzmán Primary Care Provider + Allergies Active Allergy Reactions Criticality Noted Date [...] syndrome) 07/25/2022 Abnormal uterine bleeding (AUB) 07/25/2022 Encounters Date Type Department Care Team Description 09/21/2024 3:00 PM JOURNEYMAN POWER PLANT OPERATOR Office Visit [facility] Cardiology [address] [place] [phone] Paradise Ludwig NP Sinus tachycardia (Primary Dx) 09/07/2024 9:34 AM JOURNEYMAN POWER PLANT OPERATOR - 09/07/2024 11:49 AM JOURNEYMAN POWER PLANT OPERATOR Emergency [address] [address] Gastroenteritis (Primary Dx) Discharge Disposition: Discharge to home or self care 08/16/2024 3:30 PM JOURNEYMAN POWER PLANT OPERATOR Office Visit [facility] Cardiology at [address] [place] [phone] Mp Borja MD Tachycardia, unspecified 08/16/2024 3:00 PM JOURNEYMAN POWER PLANT OPERATOR Ancillary Procedure [facility] Cardiology at [address] [place] [phone] Tachycardia, unspecified from Last 3 Months Surgical History Surgery Date Site/Laterality Comments US ABDOMEN COMPLETE W LIVER DOPPLER (C) 04/10/2018 R ight Medical History Medical History Date Comments Diabetes (HCC) type 2 Asthma PCOS (polycystic ovarian syndrome) Abnormal Pap smear of cervix 09/22/2023 + H PV HR Anemia Anxiety Family History Medical History Relation Name Comments Diabetes Father Jhoan Breast cancer Maternal Grandmother Francisca Benitez Breast C ancer at age 50's Cancer Maternal Grandmother Francisca Benitez Breast Ca ncer at age 50's Hypertension Paternal Grandmother Aster Colon cancer Neg Hx Ovarian cancer Neg Hx Pancreatic cancer Neg Hx Prostate cancer Neg Hx Uterine cancer Neg Hx Relation Name Status Comments Father Jhoan Maternal Grandmother Francisca Benitez Breast Cancer at age 5 0's Paternal Grandmother Aster Social History Tobacco Use Types Packs/Day Years [...] file Legal Sex Female 7:51 PM JOURNEYMAN POWER PLANT OPERATOR Gender Identity Female 08/09/2024 6:46 AM JOURNEYMAN POWER PLANT OPERATOR Sexual Orientation Straight 08/09/2024 6: 46 AM JOURNEYMAN POWER PLANT OPERATOR Obstetrics History Para Term AB IAB SAB Ectopic Multiple Livin g Live Births 3 0 3 3 0 Date Outcome GA Total Labor Labor/2nd/3rd Weight Sex Type Anes PTL Joan A1 A5 Name Clin SAB SAB SAB Last Filed Vital Signs Vital Sign Reading Time Taken Comments Blood Pressure 128/80 09/21/2024 2:57 PM JOURNEYMAN POWER PLANT OPERATOR Pulse 82 09/21/2024 2:57 PM JOURNEYMAN POWER PLANT OPERATOR Temperature 36.9 C (98.4 F) 09/07/2024 8:52 AM JOURNEYMAN POWER PLANT OPERATOR Respiratory Rate 16 09/07/2024 9:40 AM JOURNEYMAN POWER PLANT OPERATOR Oxygen Saturation 97% 09/21/2024 2:57 PM JOURNEYMAN POWER PLANT OPERATOR Inhaled Oxygen Concentration - - Weight 128.8 kg (284 lb) 09/21/2024 2:57 PM JOURNEYMAN POWER PLANT OPERATOR Height 170.2 cm (5' 7 ) 09/21/2024 2:57 PM JOURNEYMAN POWER PLANT OPERATOR Body Mass Index 44.48 09/21/2024 2:57 PM JOURNEYMAN POWER PLANT OPERATOR Plan of Treatment Health Maintenance Due Date Last Done Comments Albumin Creatinine Ratio, Urine 1992 Depression Screening 1992 Dilated Eye Exam 1992 Foot Exam 1992 Varicella Vaccines (2 of 2 - 13+ 2-dose series) 04/29/2014 04/01/2014 Pneumococcal vaccine <65 (2 of 2 - PCV) 03/21/2023 03/21/2022 Hemoglobin A1C 03/22/2024 09/22/2023, 02/01/2023, 02/24/2017 Covid-19 Vaccine ( season) 2024 03/26/2021, 03/04/2021 Influenza Vaccine (#1) 2024 , 05/11/2018, 2015 Cervical Cancer Screening 09/22/20242023, 09/22/2023, 07/25/2022, Additional history exists Regular Well Visit/Exam 18-64 09/22/2024 09/22/2023, 07/25/2022 Lipid Panel 08/16/2025 08/16/2024 eGFR 09/07/2025 09/07/2024, 1002/2024, 09/23/2022 DTaP/Tdap/Td Vaccine (8 - Td or Tdap) 12/20/2027 12/19/2017, 01/03/2007, 08/26/1996, Additional history exists Hepatitis B Screening Completed 02/06/1994 , 08/24/1993, 02/07/1993, Additional history exists Hepatitis C Screening Completed 12/13/2016 HPV Vaccines Aged Out No longer eligi ble based on patient's age to complete this topic Procedures Procedure Name Priority Date/Time Associated Diagnosis Comments POCT HCG, URINE STAT 09/07/2024 10:16 AM JOURNEYMAN POWER PLANT OPERATOR URINALYSIS, MICROSCOPIC ONLY STAT 09/07/2024 10:16 AM JOURNEYMAN POWER PLANT OPERATOR URINALYSIS AND REFLEX TO MICROSCOPIC AND CULTURE STAT 09/07/2024 10:16 AM JOURNEYMAN POWER PLANT OPERATOR EGFR STAT 09/07/2024 9:13 AM JOURNEYMAN POWER PLANT OPERATOR DIFFERENTIAL AUTO STAT 09/07/2024 9:1 3 AM JOURNEYMAN POWER PLANT OPERATOR LIPASE STAT 09/07/2024 9:13 AM JOURNEYMAN POWER PLANT OPERATOR COMPREHENSIVE METABOLIC PANEL STAT 09/07/2024 9:13 AM JOURNEYMAN POWER PLANT OPERATOR CBC WITH AUTO DIFFERENTIAL STAT 09/07/2024 9:13 AM JOURNEYMAN POWER PLANT OPERATOR INFLUENZA A/B, RSV, AND COVID-19 PCR STAT 09/07/2024 8:37 AM JOURNEYMAN POWER PLANT OPERATOR HOLTER MONITOR 48 HR Routine 08/16/2024 3:55 PM JOURNEYMAN POWER PLANT OPERATOR Tachycardia, unspecified ECG 12-LEAD Routine 08/16/2024 3:55 PM JOURNEYMAN POWER PLANT OPERATOR Tachycardia, unspecified POCT LIPID PANEL Routine 08/16/2024 3:26 PM JOURNEYMAN POWER PLANT OPERATOR Tachycardia, unspecified HEMOGLOBIN A1C Routine 09/22/2023 9:46 AM JOURNEYMAN POWER PLANT OPERATOR Abnormal uterine bleeding (AUB) HIGH RISK HPV DNA DETECTION WITH GENOTYPING Routine 09/22/2023 9:37 AM JOURNEYMAN POWER PLANT OPERATOR Well woman exam with routine gynecological exam HEPATITIS C ANTIBODY Routine 12/13/2016 1:24 PM CDT from Last 3 Months or Most Recently Relevant to Health Maintenance Results * (ABNORMAL) Urinalysis reflex to microscopic and culture Urine (09/07/2024 10:16 AM JOURNEYMAN POWER PLANT OPERATOR) Color, ur Yellow Yellow Clarity, ur Cloudy(A) Clear [facility] Specific gravity, ur 1.039(H) 1.003 - 1.030 [facility] pH, urine 5.5 [facility] Comment: Interpretive Data U rine pH is affected by diet, medications, systemic acid-base disturbances, and renal tubular function. pH may affect urinary stone formation. For example, urine pH below 6.0 may help reduce the tendency for calcium phosphate stones and pH greater than 6.0 may reduce the tendency for uric acid stone formation. Source: [facility] Current Interpretive Data was last revised on 2017 Protein, ur ql 1+(A) Negative [facility] Glucose, ur ql Negative Negative [facility] Ketones, ur Negative Negative [facility] Bilirubin, ur Negative Negative [facility] Blood, ur 3+(A) Negative [facility] Urobilinogen, ur 2.0(A) <2.0 mg/dL [facility] Nitrite, ur Negative Negative [facility] Leukocyte esterase, ur Negative Negative [facility] UA reflex comment Reflex to microscopic UA will be performed. [facility] Urine 09/07/2024 10:1 6 AM JOURNEYMAN POWER PLANT OPERATOR 09/07/2024 10:24 AM JOURNEYMAN POWER PLANT OPERATOR us Nora MAY LAB MICROBIOLOGY - GENERAL ORDER MARIA E Final Result MARY [address] [facility] [facility] [place] [address] * (ABNORMAL) Urinalysis, microscopic only (09/07/2024 10:16 AM JOURNEYMAN POWER PLANT OPERATOR) WBC, ur 0-5 0 - 5 /HPF RBC, ur 3-5(A) 0 - 2 /HPF [facility] Epithelial cells, squamous, ur 11-20(A) 0 - 5 /HPF [facility] Comment:Suggestive of contam ination. Consider recollection by clean catch. Mucous, ur Present(A) [facility] Calcium oxalate crystals, ur 4+(A) [facility] Culture Reflex Comment Reflex conditions for urine culture (WBC >10) not met. [facility] Urine 09/07/2024 10:1 6 AM JOURNEYMAN POWER PLANT OPERATOR 09/07/2024 10:24 AM JOURNEYMAN POWER PLANT OPERATOR Nora MAY LAB URINE ORDERABLES Final Resul t [facility] [address] [facility] [facility] Department of Laboratories [place], [place] [id number] * POCT hCG, urine (09/07/2024 10:16 AM JOURNEYMAN POWER PLANT OPERATOR) HCG, ur, POC Negative Negative Lot Number [id number] QC Backgroud Clear Acceptable QC Control Line Acceptable Urine 09/07/2024 10:1 6 AM JOURNEYMAN POWER PLANT OPERATOR Nora MAY POINT OF CARE TEST ORDERABLES Fi nal Result * eGFR (09/07/2024 9:13 AM JOURNEYMAN POWER PLANT OPERATOR) eGFR >90 >=60 mL/min/1. 73 m2 [...] of Race in Diagnosing Kidney Disease, JASN 202). The CKD-EPI equation should not be used for patients with unstable renal function and has not been validated in children and those over 70. Current interpretive data was last reviewed 2021. Blood 09/07/2024 9:13 AM JOURNEYMAN POWER PLANT OPERATOR 09/07/2024 9:15 AM JOURNEYMAN POWER PLANT OPERATOR us Nora [facility] LAB BLOOD ORDERABLES Final Resul t [facility] [address] [facility] [place] [address] * Differential, auto (09/07/2024 9:13 AM JOURNEYMAN POWER PLANT OPERATOR) Pathologist [facility] Neutrophil abs 3.7 1.5 - 6.5 K/cumm Imm gran abs 0.0 0.0 - 0.1 K/cumm [facility] Lymphocyte abs 1.7 0.8 - 3.3 K/cumm [facility] Monocyte abs 0.6 0.2 - 0.8 K/cumm [facility] Eosinophil abs 0.0 0.0 - 0.5 K/cumm [facility] Basophil abs 0.0 0.0 - 0.1 K/cumm [facility] Neutrophil pct 61.2 % [facility] Comment: Interpretive Data Percent cell count reference ranges are not reported, since discordance with absolute values may lead to misinterpretation of CBC data. Current Interpretive Data was last revised on 2017. Imm gran pct 0.3 % [facility] Comment: Interpretive Data Percent cell count reference ranges are not reported, since discordance with absolute values may lead to misinterpretation of CBC data. Current Interpretive Data was last revised on 2017. Lymphocyte pct 28.4 % [facility] Comment: Interpretive Data Percent cell count reference ranges are not reported, since discordance with absolute values may lead to misinterpretation of CBC data. Current Interpretive Data was last revised on 2017. Monocyte pct 9.9 % [facility] Comment: Interpretive Data Percent cell count reference ranges are not reported, since discordance with absolute values may lead to misinterpretation of CBC data. Current Interpretive Data was last revised on 2017. Eosinophil pct 0.2 % [facility] Comment: Interpretive Data Percent cell count reference ranges are not reported, since discordance with absolute values may lead to misinterpretation of CBC data. Current Interpretive Data was last revised on 2017. Basophil pct 0.0 % [facility] Comment: Interpretive Data Percent cell count reference ranges are not reported, since discordance with absolute values may lead to misinterpretation of CBC data. Current Interpretive Data was last revised on 2017. Blood 09/07/2024 9:13 AM JOURNEYMAN POWER PLANT OPERATOR 09/07/2024 9:15 AM JOURNEYMAN POWER PLANT OPERATOR us Nora [facility] LAB BLOOD ORDERABLES Final Resul t Performing Organization Address [facility] Co de Phone Number MARY [address] [email or web address] [address] * (ABNORMAL) CBC with auto differential (09/07/2024 9:13 AM JOURNEYMAN POWER PLANT OPERATOR) WBC 6.1 3.8 - 9.9 K/cumm Hgb 11.6(L) 11.9 - 15.5 g/dL [facility] Hct 40.0 35.6 - 45.5 % [facility] Plt 241 150 - 400 K/cumm [facility] MPV 11.0 9.1 - 12.3 fL [facility] RBC 4.81 3.90 - 5.20 M/cumm [facility] MCV 83.2 81.3 - 96.4 fL [facility] MCH 24.1(L) 27.1 - 33.3 pg [facility] MCHC 29.0(L) 32.3 - 35.7 g/dL [facility] RDW CV 16.6(H) 11.1 - 14.9 % [facility] RDW SD 50.1(H) 35.7 - 48.1 fL [facility] NRBC abs 0.00 0.00 - 0.01 K/cumm [facility] Blood 09/07/2024 9:13 AM JOURNEYMAN POWER PLANT OPERATOR 09/07/2024 9:15 AM JOURNEYMAN POWER PLANT OPERATOR us Nora MAY LAB BLOOD ORDERABLES Final Resul t Performing Organization Address [facility]/ZIP Co de Phone Number MARY [address] [place] [address] * Lipase (09/07/2024 9:13 AM JOURNEYMAN POWER PLANT OPERATOR) Lipase 29 10 - 99 Units/L Blood 09/07/2024 9:13 AM JOURNEYMAN POWER PLANT OPERATOR 09/07/2024 9:15 AM JOURNEYMAN POWER PLANT OPERATOR us Nora MAY LAB BLOOD ORDERABLES Final Resul t [facility] [address] [facility] [facility] [place] [address] * Comprehensive metabolic panel (09/07/2024 9:13 AM JOURNEYMAN POWER PLANT OPERATOR) Sodium 138 135 - 145 mmol/L Potassium, pl 4.0 3.3 - 4.9 mmol/L [facility] Chloride 105 97 - 110 mmol/L [facility] CO2 26 22 - 32 mmol/L [facility] Anion gap 7 2 - 15 mmol/L [facility] BUN 11 6 - 25 mg/dL [facility] Creatinine 0.84 0.60 - 1.10 mg/dL [facility] Glucose 104 70 - 199 mg/dL [facility] Comment: Interpretive Data Fasting glucose >/= 126 [...] 2022. Calcium 9.2 8.5 - 10.3 mg/dL [facility] Bilirubin, total 0.3 0.1 - 1.2 mg/dL [facility] Protein, pl 7.8 6.5 - 8.5 g/dL [facility] Albumin 3.7 3.5 - 5.0 g/dL [facility] Alk phos 97 40 - 130 Units/L [facility] ALT 21 7 - 45 Units/L [facility] AST 20 10 - 45 Units/L [facility] Blood 09/07/2024 9:13 AM JOURNEYMAN POWER PLANT OPERATOR 09/07/2024 9:15 AM JOURNEYMAN POWER PLANT OPERATOR Nora MAY LAB BLOOD ORDERABLES Final Resul t Performing Organization Address [facility] Co de Phone Number MARY [address] [facility] [place] [address] * Influenza A/B, RSV, and COVID-19 PCR Nasopharyngeal (09/07/2024 8:37 AM JOURNEYMAN POWER PLANT OPERATOR) Pathologist [facility] COVID-19 RNA Negative Negative Influenza A RNA Negative Negative [facility] Influenza B RNA Negative Negative [facility] RSV RNA Negative Negative [facility] Comment: Interpretive data: Testing performed by [facility]. This test is performed using the Exelis Xpert Xpress CoV-2/Flu/RSV plus assay. This is a multiplex, real-time reverse transcriptase PCR assay intended for the qualitative detection of nucleic acid from SARS-CoV-2, influenza A, influenza B, and respiratory syncytial virus. This assay has been cleared by the [place] Food and Drug administration. The performance characteristics have been verified by the [facility]. Results must be considered in the clinical context, and a negative result does not rule out infection. Interpretive Data last revised 2023 Nasopharyngeal 09/07/2024 8: 37 AM JOURNEYMAN POWER PLANT OPERATOR 09/07/2024 8:42 AM JOURNEYMAN POWER PLANT OPERATOR Narrative [facility] - 09/07/2024 9:20 AM JOURNEYMAN POWER PLANT OPERATOR Is the Patient experiencing symptoms consistent with COVID?->Yes Abhay Lance MD LAB MICROBIOLOGY - GENERAL ORDER MARIA E Final Result Performing Organization Address [facility]/ZIP Co de Phone Number MARY [address] [facility] [place] [employer] [place] [address] * 48 HR Holter Monitor (08/16/2024 3:55 PM JOURNEYMAN POWER PLANT OPERATOR) Anatomical Region Laterality Modality Electrocardiogra phy Narrative 08/26/2024 12:20 PM JOURNEYMAN POWER PLANT OPERATOR Images from the original result were not included. AMBULATORY HOUSE RN REPORT Patient Name: Tara Ta Date of [...] correlate to sinus tachycardia. Shahbaz Sanchez M.D., [facility] 08/26/24 Procedure Note Shahbaz Sanchez MD - 08/26/2024 Images from the original note were not included. AMBULATORY HOUSE RN REPORT Patient Name: Tara Ta Date of [...] correlate to sinus tachycardia. Shahbaz Sanchez M.D., [facility] 08/26/24 Mp Borja MD CV CARDIAC SERVICES PROC EDURES Final Result * ECG 12 lead (08/16/2024 3:55 PM JOURNEYMAN POWER PLANT OPERATOR) Mp Borja MD ECG ORDERABLES Final Re sult * POCT lipid panel (08/16/2024 3:26 PM JOURNEYMAN POWER PLANT OPERATOR) [facility] Cholesterol, POC 172 mg/dL HDL, POC 49 mg/dL Triglycerides, POC 88 mg/dL LDL Cholesterol POC 106 mg/dL Chol/HDL Ratio, POC 3.5 Non-HDL Cholesterol, POC 123 mg/dL Cholesterol Total, POC 172 mg/dL Capillary blood 08/16/2024 3 :26 PM JOURNEYMAN POWER PLANT OPERATOR Mp Borja MD POINT OF CARE TEST ORDER MARIA E Final Result * (ABNORMAL) Hemoglobin A1c (09/22/2023 9:46 AM JOURNEYMAN POWER PLANT OPERATOR) Pathologist [facility] Hgb A1C 6.0(H) 4.0 - 5.6 % MARY MAK Comment:Testing performed by : [facility], [address] [place] [address], [place]., [address] Estimated Average Glucose 126 mg/dL MARY MAK Comment: The ADA recommends reporting an estimated Average Glucose (eAG) with all Hemoglobin A1c results using the equation derived from a study of 507 normal and diabetic adults. Minority populations were underrepresented and children were not included. (Diabetes Care 31:1552-9310, 2008). The eAG is not equivalent to a fasting glucose. Testing performed by: [facility], [address] [place] [address]., [id number] Blood 09/22/2023 9:46 AM JOURNEYMAN POWER PLANT OPERATOR 09/22/2023 12:02 PM JOURNEYMAN POWER PLANT OPERATOR us Kendy Pablo MD LAB BLOOD ORDERABLES Final Res ult MARY [address] [facility] [place] [address] * (ABNORMAL) High Risk HPV DNA Detection with Genotyping (Molecular component) (09/22/2023 9:37 AM JOURNEYMAN POWER PLANT OPERATOR) HPV HR 16 Not Detected Not Detected MARY MAK Comment:Testing performed by : [facility], [address] [place]., [address] HPV HR 18 Not Detected Not Detected MARY MAK Comment:Testing performed by : [facility], [address] [place]., [address] HPV HR Non 16/18 Detected(A) Not Detected MARY MAK Comment: Interpretive Data Nucleic acid amplification for [...] this test have been verified by the [facility] Molecular Infectious Disease laboratory. Correlate with separately reported cytology results, as applicable. Interpretive data last revised 23 Testing performed by: [facility], [address] [facility], [place]., [address] Endocervical 09/22/2023 9:37 AM JOURNEYMAN POWER PLANT OPERATOR 09/23/2023 9:23 AM JOURNEYMAN POWER PLANT OPERATOR Narrative MARY - 09/24/2023 12:05 AM JOURNEYMAN POWER PLANT OPERATOR Clinical history and diagnosis->screening Number of vials->1 Testing type->Screening Last menstrual period (date if known)->09/09/2023 us Kendy Pablo MD LAB BODY FLUIDS AND STOOLS ORD ERABLES Final Result Performing Organization Address [facility] Co de Phone Number ASHLYCARLOS [address] [facility] [place] [address] * Hepatitis C antibody (12/13/2016 1:24 PM CDT) Hep C Ab NON-REACTI VE NON-REACTI VE [facility] HISTORICAL RESULTS SIGNAL TO CUT-OFF 0.03 <1.00 [facility] HISTORICAL RESULTS 12/13/2016 1:24 PM CDT 12/16/2016 1:15 PM CDT Narrative [facility] HISTORICAL RESULTS - 12/16/2016 1:00 PM CDT LTC ONLY: NURSE COLLECTED - NO SPECIMEN PROVIDED. PERFORMING LAB: [place], [facility] [address] [place] [address] Kp Vargas D.O., MPH us Antonia Hoff MD LAB MICROBIOLOGY - GENERAL O RDERABLES Final Result [facility] HISTORICAL RESULTS from Last 3 Months or Most Recently Relevant to Health Maintenance Insurance [facility] Care Teams Front Clerk Relationship Specialty Start Date End Date Araceli Guzmán PA PCP - General Physician Stud Setter 07/25/22
== END 2024-10-11 08:09 | disposition home or self-care (01) ==
PROVIDERS: PCP Physician Assistant; Visit Provider Physician Assistant
DX: M25.561 Pain in right knee (principal); M25.562 Pain in left knee
CPT/HCPCS: 73562

== ENCOUNTER 2024-10-11 14:38 | Emergency (ER) | payer OTHER, SELFPAY ==
--- NOTE | ~2024-10-11 | US_ITS ---
EXAMINATION: US pelvic complete w TV DATE: 10/11/2024 15:32 INDICATION: Left lower quadrant abdominal pain. TECHNIQUE: Multiple transabdominal and transvaginal sonographic images of the pelvis were obtained. COMPARISON: Ultrasound pelvis 09/16/2023, CT abdomen and pelvis 09/16/2023 FINDINGS: TRANSABDOMINAL ULTRASOUND: The uterus measures 8.1 x 3.4 x 4.7 cm. There is no free fluid in the pelvis. TRANSVAGINAL ULTRASOUND: The endometrial complex measures 5 mm in thickness. There is a 1.7 cm nabothian cyst in the cervix. T he right ovary measures 6.7 x 3.2 x 4.8 cm. There is a 4.6 cm cyst in right ovary. The left ovary seamus sures 3.8 x 2.8 x 3.0 cm. There is normal vascular flow in the ovaries. IMPRESSION: 1. 4.6 cm cyst in right ovary, likely a follicular cyst. Reviewed, dictated and finalized at location A. RMATION TECHNOLOGY ADVISOR
[2024-10-11 14:46] VITALS: BP 157/115; PULSE 102; RESP 17; TEMP 36.4; O2SAT 99
--- NOTE | 2024-10-11 14:48 | ED_ITS ---
HPI - Abdominal Pain General Chief Complaint: Abdominal Pain Stated Complaint: ovarian cyst rupture Focused HPI: 34-year-old female with history of type 2 diabetes presents to emergency department for left lower quadrant abdominal pain that started at noon today. Patient reports associated nausea and vomiting. She has had similar symptoms in the past has been diagnosed with an ovarian cyst rupture is concerned she has the same. LMP 10/02/2024. Denies vaginal discharge or concern for STDs. No prior abdominal surgeries. Denies diarrhea, dysuria or hematuria. GENERAL: Well-appearing, well-nourished, and in no acute distress. HEAD: Normocephalic, atraumatic. CHEST: Clear to auscultation. ?No respiratory distress. ABD: Tenderness to the left upper left lower quadrant with voluntary guarding, no rigidity HEART: Regular rate and rhythm.? NEURO: ?Alert and oriented x3. Patient screened in triage and initial orders placed.? ?Additional care and disposition to be based upon?diagnostic testing and treatment. Related Data Allergies Allergy/AdvReac Type Severity Reaction Status Date / Time No Known Allergies Allergy Verified 07/24/23 07:22 [facility] Past Medical History Medical History Diabetes mellitus Social History Social History Smoking status: Never smoker Alcohol intake: current Substance use: never Course Vital Signs Vital signs: Vital Signs Temperature 97.6 F 10/11/24 14:46 Pulse Rate 102 H 10/11/24 14:46 Respiratory Rate 10/11/24 14:46 Blood Pressure 157/115 H 10/11/24 14:46 Pulse Oximetry 99 10/11/24 14:46 Temperature 97.6 F 10/11/24 14:46 Pulse Rate 102 H 10/11/24 14:46 Respiratory Rate 17 10/11/24 14:46 Blood Pressure 157/115 H 10/11/24 14:46 Pulse Oximetry 99 10/11/24 14:46 Discharge Plan Discharge Instructions: Antibiotic Form Patient Language: Guinean Follow-up/Referrals: Ramirez,YADIRA Hernandez [Primary Care Provider] -
--- NOTE | 2024-10-11 14:48 | ED.ABDPAIN ---
HPI - Abdominal Pain General Chief Complaint: Abdominal Pain Stated Complaint: ovarian cyst rupture Focused HPI: 34-year-old female with history of type 2 diabetes presents to emergency department for left lower quadrant abdominal pain that started at noon today. Patient reports associated nausea and vomiting. She has had similar symptoms in the past has been diagnosed with an ovarian cyst rupture is concerned she has the same. LMP 10/02/2024. Denies vaginal discharge or concern for STDs. No prior abdominal surgeries. Denies diarrhea, dysuria or hematuria. GENERAL: Well-appearing, well-nourished, and in no acute distress. HEAD: Normocephalic, atraumatic. CHEST: Clear to auscultation. ?No respiratory distress. ABD: Tenderness to the left upper left lower quadrant with voluntary guarding, no rigidity HEART: Regular rate and rhythm.? NEURO: ?Alert and oriented x3. Patient screened in triage and initial orders placed.? ?Additional care and disposition to be based upon?diagnostic testing and treatment. Related Data Home Medications ?Medication ?Instructions ?Recorded ?Confirmed ?Last Taken ?Type albuterol 90 mcg-budesonide 80 2 inh inhalation ONCE 10/13/24 10/13/24 Unknown History mcg/actuation HFA aerosol inhaler dulaglutide 3 mg/0.5 mL 3 mg subcut WEEKLY 10/13/24 10/13/24 Unknown History subcutaneous pen injector (Trulicity) ferrous sulfate 300 mg (60 mg 300 mg PO DAILY 10/13/24 10/13/24 Unknown History iron)/5 mL oral liquid Allergies Allergy/AdvReac Type Severity Reaction Status Date / Time steroid AdvReac Severe other Uncoded 10/13/24 08:31 [facility] Past Medical History Medical History (Updated 10/18/24 @ 21:55 by Delia Fuentes PA-C) History of HPV infection Anxiety Anemia Asthma Diabetes mellitus type 2 Surgical History Surgical History (Updated 10/13/24 @ 08:34 by ERIC Leblanc) History of colposcopy (10/01/23) Benign Family History Family History (Updated 10/13/24 @ 08:35 by ERIC Leblanc) Grandparent Breast cancer maternal grandmother Hypertension paternal grandmother Father Hypertension Diabetes mellitus Social History Social History (Updated 10/13/24 @ 08:36 by ERIC Leblanc) Smoking status: Never smoker Alcohol intake: current Drinks per week: 7 Substance use: former Substance use type: marijuana Last use: 2020 Do You Feel Safe in your Home?: Yes Lack of Transportation: No Lack of Food: Never True Current Housing: I Have Housing Concerned About Future Housing: No Difficulty Paying Gas/Electric Bills: No Difficulty Paying for Meds: No Currently Unemployed: No Education: Trade/Vocational Certificate Difficulty w/ Childcare or Family Care: Decline to Answer Additional living arrangements comments: Occupation/Education: occupation 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 Gender identity (if verbalized by the patient): Female Sexual Orientation (if Verbalized by the Patient): Straight or Heterosexual Course Vital Signs Vital signs: Vital Signs Temperature 97.6 F 10/11/24 14:46 Pulse Rate 102 H 10/11/24 14:46 Respiratory Rate 17 10/11/24 14:46 Blood Pressure 157/115 H 10/11/24 14:46 Pulse Oximetry 99 10/11/24 14:46 Temperature 97.6 F 10/11/24 14:46 Pulse Rate 102 H 10/11/24 14:46 Respiratory Rate 17 10/11/24 14:46 Blood Pressure 157/115 H 10/11/24 14:46 Pulse Oximetry 99 10/11/24 14:46 MDM - Abdominal Pain Lab Data 10/11/24 15:34 10/11/24 15:34 Labs: Lab Results 10/11/24 Range/Units 15:34 WBC 7.0 (4.5-10.0) K/mm3 RBC 4.43 (4.2-5.4) M/mm3 Hgb 11.0 L (12.0-15.0) g/dL Hct 37.4 (37.0-47.0) % MCV 84.4 (80-100) fl MCH 24.8 L (26-34) pg MCHC 29.4 L (32-36) g/dl RDW 16.2 H (11.5-14.5) % Plt Count 264 (150-375) k/mm3 MPV 11.0 H (7.4-10.4) fl Immature Gran % (Auto) 0.3 (0-0.5) % Neut % (Auto) 55.4 (45.5-73.1) % Lymph % (Auto) 34.0 (18.3-44.2) % Foster % (Auto) 10.0 H (2.6-8.5) % Eos % (Auto) 0.3 (0-4.4) % Baso % (Auto) 0.0 L (0.2-1.2) % Lymph # (Auto) 2.37 (0.9-3.2) K/mm3 Foster # (Auto) 0.7 H (0.1-0.6) K/mm3 Eos # (Auto) 0.0 (0-0.3) K/mm3 Baso # (Auto) 0.0 (0.0-0.1) K/mm3 Abs Immat Gran (auto) 0.02 (0.00-0.031) K/mm3 Absolute Neuts (auto) 3.9 (1.3-6.7) K/mm3 Absolute Nucleated RBC 0.000 (0.0-0.012) K/mm3 Band Neutrophils % Not Reportable Nucleated RBC % 0.0 (0.0-0.2) % Platelet Estimate Adequate (Adequate) Hypochromasia 1+ Anisocytosis 1+ Schistocytes None seen Sodium 141 (137-145) mmol/L Potassium 4.0 (3.4-5.0) mmol/L Chloride 104 (98-107) mmol/L Carbon Dioxide 30 (22-30) mmol/L Anion Gap 7 (4-12) mmol/L BUN 12 (7-17) mg/dL Creatinine 0.68 L (0.7-1.0) mg/dL Estim Creat Clear Calc 118 ml/min Estimated GFR > 60 (59 - ) Glucose 76 (65-110) mg/dL Calcium 9.2 (8.4-10.2) mg/dL Total Bilirubin 0.5 (0.2-1.3) mg/dL AST 25 (14-36) U/L ALT 27 (6-35) U/L Alkaline Phosphatase 93 (38-126) U/L Total Protein 8.0 (6.3-8.2) g/dL Albumin 4.1 (3.5-5.1) g/dL Lipase 90 (23-300) U/L Imaging Data Radiologist's impression: ITS Impressions Pelvic/Transvag US 10/11/24 15:45 IMPRESSION: 1. 4.6 cm cyst in right ovary, likely a follicular cyst. Discharge Plan Discharge Clinical Impression: Ovarian cyst Qualifiers: Laterality: right Qualified Code(s): N83.201 - Unspecified ovarian cyst, right side Patient Disposition: Elopement After Seen by Prov Condition: Stable Instructions: Antibiotic Form Patient Language: Filipino Prescriptions: No Action Trulicity 3 mg/0.5 mL pen injector 3 mg subcut WEEKLY ferrous sulfate 300 mg (60 mg iron)/5 mL liquid 300 mg PO DAILY albuterol-budesonide 90-80 mcg/actuation HFA aerosol inhaler 2 inh inhalation ONCE Rx Instructions: as a single dose; may repeat up to 6 doses per day (12 inhalations) progesterone micronized [Prometrium] 200 mg capsule 200 mg PO QHS 14 Days Qty: 14 0RF acetaminophen-codeine 300-30 mg tablet 1 tablet PO Q6H PRN (Reason: pain) Qty: 20 0RF Follow-up/Referrals: Ramirez,YADIRA Hernandez [Primary Care Provider] -
[2024-10-11 15:43] LABS: Eosinophils Percent Auto 0.3 % (0-4.4); Hematocrit 37.4 % (37.0-47.0); Immature Granulocyte Absolute 0.02 K/mm3 (0.00-0.031); Immature Granulocyte Percent A 0.3 % (0-0.5); Lymphocytes Absolute Auto 2.37 K/mm3 (0.9-3.2); Mean Corpuscular HGB Conc 29.4 g/dl (32-36); Mean Corpuscular Hemoglobin 24.8 pg (26-34); Mean Corpuscular Volume 84.4 fl (80-100); Monocytes Absolute Auto 0.7 K/mm3 (0.1-0.6); Neutrophils Absolute Auto 3.9 K/mm3 (1.3-6.7); Neutrophils Percent Auto 55.4 % (45.5-73.1); Platelet Count Result 264 k/mm3 (150-375); Red Blood Count 4.43 M/mm3 (4.2-5.4); Red Cell Distribution Width 16.2 % (11.5-14.5)
[2024-10-11 15:55] LABS: Alanine Aminotransferase 27 U/L (6-35); Albumin Level 4.1 g/dL (3.5-5.1); Alkaline Phosphatase 93 U/L (38-126); Anion Gap 7 mmol/L (4-12); Aspartate Amino Transferase 25 U/L (14-36); Bilirubin,Total 0.5 mg/dL (0.2-1.3); Blood Urea Nitrogen 12 mg/dL (7-17); Calcium 9.2 mg/dL (8.4-10.2); Carbon Dioxide 30 mmol/L (22-30); Chloride 104 mmol/L (98-107); Estimated CRCL calculation 118 ml/min; Estimated Glomerular Filt Rate > 60; Glucose 76 mg/dL (65-110); Lipase 90 U/L (23-300); Sodium 141 mmol/L (137-145)
[2024-10-11 16:19] LABS: Platelet Estimate Adequate (Adequate)
[2024-10-11 16:20] LABS: Anisocytosis 1+; Hypochromasia 1+; Schistocytes None Seen
--- OUTSIDE RECORDS SUMMARY | 2024-10-11 17:01 | XMS_ITS | Referral Summary ---
Author Organization [facility] [place] [address] [place] [address] [address] [place] [address] Care Team Providers Care Staff Training And Development Manager Name Role Phone Araceli Guzmán Primary Care Provider + Encounters Date Type Department Care Team Description 09/21/2024 3:00 PM MERCANTILE AGENT Office Visit [facility] Medical [facility] Cardiology [address] [facility] [address] [place] [address] Paradise Ludwig NP Sinus tachycardia (Primary Dx) 09/07/2024 9:34 AM MERCANTILE AGENT - 09/07/2024 11:49 AM MERCANTILE AGENT Emergency [address] [address] Gastroenteritis (Primary Dx) Discharge Disposition: Discharge to home or self care 08/16/2024 3:00 PM MERCANTILE AGENT Ancillary Procedure [facility] Medical Group Cardiology at [address] [place] [address] Tachycardia, unspecified 08/16/2024 3:30 PM MERCANTILE AGENT Office Visit [facility] Medical Group Cardiology at [address] [place] [phone] Mp Borja MD Tachycardia, unspecified from Last [...] on file Legal Sex Female 7:51 PM MERCANTILE AGENT Gender Identity Female 08/09/2024 6:46 AM MERCANTILE AGENT Sexual Orientation Straight 08/09/2024 6: 46 AM MERCANTILE AGENT Last Filed Vital Signs Vital Sign Reading Time Taken Comments Blood Pressure 128/80 09/21/2024 2:57 PM MERCANTILE AGENT Pulse 82 09/21/2024 2:57 PM MERCANTILE AGENT Temperature 36.9 C (98.4 F) 09/07/2024 8:52 AM MERCANTILE AGENT Respiratory Rate 16 09/07/2024 9:40 AM MERCANTILE AGENT Oxygen Saturation 97% 09/21/2024 2:57 PM MERCANTILE AGENT Inhaled Oxygen Concentration - - Weight 128.8 kg (284 lb) 09/21/2024 2:57 PM MERCANTILE AGENT Height 170.2 cm (5' 7 ) 09/21/2024 2:57 PM MERCANTILE AGENT Body Mass Index 44.48 09/21/2024 2:57 PM MERCANTILE AGENT Plan of Treatment Not on file Procedures Procedure Name Priority Date/Time Associated Diagnosis Comments POCT HCG, URINE STAT 09/07/2024 10:16 AM MERCANTILE AGENT URINALYSIS, MICROSCOPIC ONLY STAT 09/07/2024 10:16 AM MERCANTILE AGENT URINALYSIS AND REFLEX TO MICROSCOPIC AND CULTURE STAT 09/07/2024 10:16 AM MERCANTILE AGENT EGFR STAT 09/07/2024 9:13 AM MERCANTILE AGENT DIFFERENTIAL AUTO STAT 09/07/2024 9:1 3 AM MERCANTILE AGENT LIPASE STAT 09/07/2024 9:13 AM MERCANTILE AGENT COMPREHENSIVE METABOLIC PANEL STAT 09/07/2024 9:13 AM MERCANTILE AGENT CBC WITH AUTO DIFFERENTIAL STAT 09/07/2024 9:13 AM MERCANTILE AGENT INFLUENZA A/B, RSV, AND COVID-19 PCR STAT 09/07/2024 8:37 AM MERCANTILE AGENT HOLTER MONITOR 48 HR Routine 08/16/2024 3:55 PM MERCANTILE AGENT Tachycardia, unspecified ECG 12-LEAD Routine 08/16/2024 3:55 PM MERCANTILE AGENT Tachycardia, unspecified POCT LIPID PANEL Routine 08/16/2024 3:26 PM MERCANTILE AGENT Tachycardia, unspecified HEMOGLOBIN A1C Routine 09/22/2023 9:46 AM MERCANTILE AGENT Abnormal uterine bleeding (AUB) HIGH RISK HPV DNA DETECTION WITH GENOTYPING Routine 09/22/2023 9:37 AM MERCANTILE AGENT Well woman exam with routine gynecological exam HEPATITIS C ANTIBODY Routine 12/13/2016 1:24 PM CDT from Last 3 Months or Most Recently Relevant to Health Maintenance Results * (ABNORMAL) Urinalysis reflex to microscopic and culture Urine (09/07/2024 10:16 AM MERCANTILE AGENT) Color, ur Yellow Yellow Clarity, ur Cloudy(A) Clear [facility] Specific gravity, ur 1.039(H) 1.003 - 1.030 [facility] pH, urine 5.5 [facility] Comment: Interpretive Data U rine pH is affected by diet, medications, systemic acid-base disturbances, and renal tubular function. pH may affect urinary stone formation. For example, urine pH below 6.0 may help reduce the tendency for calcium phosphate stones and pH greater than 6.0 may reduce the tendency for uric acid stone formation. Source: [facility] Current Interpretive Data was last revised on 2017 Protein, ur ql 1+(A) Negative [facility] Glucose, ur ql Negative Negative [facility] Ketones, ur Negative Negative [facility] Bilirubin, ur Negative Negative [facility] Blood, ur 3+(A) Negative [facility] Urobilinogen, ur 2.0(A) <2.0 mg/dL [facility] Nitrite, ur Negative Negative [facility] Leukocyte esterase, ur Negative Negative [facility] UA reflex comment Reflex to microscopic UA will be performed. [facility] Urine 09/07/2024 10:1 6 AM MERCANTILE AGENT 09/07/2024 10:24 AM MERCANTILE AGENT us Nora MAY LAB MICROBIOLOGY - GENERAL ORDER MARIA E Final Result [facility] [address] [facility] [address] [facility] Department [place] [address] * (ABNORMAL) Urinalysis, microscopic only (09/07/2024 10:16 AM MERCANTILE AGENT) WBC, ur 0-5 0 - 5 /HPF RBC, ur 3-5(A) 0 - 2 /HPF [facility] Epithelial cells, squamous, ur 11-20(A) 0 - 5 /HPF [facility] Comment:Suggestive of contam ination. Consider recollection by clean catch. Mucous, ur Present(A) [facility] Calcium oxalate crystals, ur 4+(A) [facility] Culture Reflex Comment Reflex conditions for urine culture (WBC >10) not met. [facility] Urine 09/07/2024 10:1 6 AM MERCANTILE AGENT 09/07/2024 10:24 AM MERCANTILE AGENT us Nora MAY LAB URINE ORDERABLES Final Resul t Performing Organization Address City/[facility]/ZIP Co de Phone Number MARY [address] Department [place] [address] * POCT hCG, urine (09/07/2024 10:16 AM MERCANTILE AGENT) HCG, ur, POC Negative Negative Lot Number [id number] QC Backgroud Clear Acceptable QC Control Line Acceptable Urine 09/07/2024 10:1 6 AM MERCANTILE AGENT us Nora MAY POINT OF CARE TEST ORDERABLES Fi nal Result * eGFR (09/07/2024 9:13 AM MERCANTILE AGENT) eGFR >90 >=60 mL/min/1. 73 m2 Comment: [...] last reviewed 2021. Blood 09/07/2024 9:13 AM MERCANTILE AGENT 09/07/2024 9:15 AM MERCANTILE AGENT us Nora MAY LAB BLOOD ORDERABLES Final Resul t [facility] Department [place] [address] * Differential, auto (09/07/2024 9:13 AM MERCANTILE AGENT) Neutrophil abs 3.7 1.5 - 6.5 K/cumm Imm gran abs 0.0 0.0 - 0.1 K/cumm [facility] Lymphocyte abs 1.7 0.8 - 3.3 K/cumm [facility] Monocyte abs 0.6 0.2 - 0.8 K/cumm [facility] Eosinophil abs 0.0 0.0 - 0.5 K/cumm [facility] Basophil abs 0.0 0.0 - 0.1 K/cumm [facility] Neutrophil pct 61.2 % [facility] Comment: Interpretive Data Percent cell count reference ranges are not reported, since discordance with absolute values may lead to misinterpretation of CBC data. Current Interpretive Data was last revised on 2017. Imm gran pct 0.3 % [facility] Comment: Interpretive Data Percent cell count reference ranges are not reported, since discordance with absolute values may lead to misinterpretation of CBC data. Current Interpretive Data was last revised on 2017. Lymphocyte pct 28.4 % [facility] Comment: Interpretive Data Percent cell count reference ranges are not reported, since discordance with absolute values may lead to misinterpretation of CBC data. Current Interpretive Data was last revised on 2017. Monocyte pct 9.9 % [facility] Comment: Interpretive Data Percent cell count reference ranges are not reported, since discordance with absolute values may lead to misinterpretation of CBC data. Current Interpretive Data was last revised on 2017. Eosinophil pct 0.2 % [facility] Comment: Interpretive Data Percent cell count reference ranges are not reported, since discordance with absolute values may lead to misinterpretation of CBC data. Current Interpretive Data was last revised on 2017. Basophil pct 0.0 % [facility] Comment: Interpretive Data Percent cell count reference ranges are not reported, since discordance with absolute values may lead to misinterpretation of CBC data. Current Interpretive Data was last revised on 2017. Blood 09/07/2024 9:13 AM MERCANTILE AGENT 09/07/2024 9:15 AM MERCANTILE AGENT Nora MAY LAB BLOOD ORDERABLES Final Resul t Performing Organization Address [facility] de Phone Number MARY [address] [address] * (ABNORMAL) CBC with auto differential (09/07/2024 9:13 AM MERCANTILE AGENT) Pathologist [facility] WBC 6.1 3.8 - 9.9 K/cumm Hgb 11.6(L) 11.9 - 15.5 g/dL [facility] Hct 40.0 35.6 - 45.5 % [facility] Plt 241 150 - 400 K/cumm [facility] MPV 11.0 9.1 - 12.3 fL [facility] RBC 4.81 3.90 - 5.20 M/cumm [facility] MCV 83.2 81.3 - 96.4 fL [facility] MCH 24.1(L) 27.1 - 33.3 pg [facility] MCHC 29.0(L) 32.3 - 35.7 g/dL [facility] RDW CV 16.6(H) 11.1 - 14.9 % [facility] RDW SD 50.1(H) 35.7 - 48.1 fL [facility] NRBC abs 0.00 0.00 - 0.01 K/cumm [facility] Blood 09/07/2024 9:13 AM MERCANTILE AGENT 09/07/2024 9:15 AM MERCANTILE AGENT Nora Clemons PA LAB BLOOD ORDERABLES Final Resul t Performing Organization Address City/[facility] Co de Phone Number MARY [address] [place] [address] * Lipase (09/07/2024 9:13 AM MERCANTILE AGENT) [facility] Lipase 29 10 - 99 Units/L Blood 09/07/2024 9:13 AM MERCANTILE AGENT 09/07/2024 9:15 AM MERCANTILE AGENT Nora Deonte PA LAB BLOOD ORDERABLES Final Resul t Performing Organization Address [facility]/ZIP Co de Phone Number MARY [address] [facility] [place] [address] * Comprehensive metabolic panel (09/07/2024 9:13 AM MERCANTILE AGENT) Sodium 138 135 - 145 mmol/L Potassium, pl 4.0 3.3 - 4.9 mmol/L [facility] Chloride 105 97 - 110 mmol/L [facility] CO2 26 22 - 32 mmol/L [facility] Anion gap 7 2 - 15 mmol/L [facility] BUN 11 6 - 25 mg/dL [facility] Creatinine 0.84 0.60 - 1.10 mg/dL [facility] Glucose 104 70 - 199 mg/dL [facility] Comment: Interpretive Data Fasting glucose >/= [...] 2022. Calcium 9.2 8.5 - 10.3 mg/dL [facility] Bilirubin, total 0.3 0.1 - 1.2 mg/dL [facility] Protein, pl 7.8 6.5 - 8.5 g/dL [facility] Albumin 3.7 3.5 - 5.0 g/dL [facility] Alk phos 97 40 - 130 Units/L [facility] ALT 21 7 - 45 Units/L [facility] AST 20 10 - 45 Units/L [facility] Blood 09/07/2024 9:13 AM MERCANTILE AGENT 09/07/2024 9:15 AM MERCANTILE AGENT us Nora MAY LAB BLOOD ORDERABLES Final Resul t Performing Organization Address [facility]/ZIP Co de Phone Number MARY [address] [facility] [place] [address] * Influenza A/B, RSV, and COVID-19 PCR Nasopharyngeal (09/07/2024 8:37 AM MERCANTILE AGENT) COVID-19 RNA Negative Negative Influenza A RNA Negative Negative [facility] Influenza B RNA Negative Negative [facility] RSV RNA Negative Negative [facility] Comment: Interpretive data: Testing performed by [facility]. This test is performed using the TORCH.sh Xpert Xpress CoV-2/Flu/RSV plus assay. This is a multiplex, real-time reverse transcriptase PCR assay intended for the qualitative detection of nucleic acid from SARS-CoV-2, influenza A, influenza B, and respiratory syncytial virus. This assay has been cleared by the [place] Food and Drug administration. The performance characteristics have been verified by the [facility]. Results must be considered in the clinical context, and a negative result does not rule out infection. Interpretive Data last revised 2023 Nasopharyngeal 09/07/2024 8: 37 AM MERCANTILE AGENT 09/07/2024 8:42 AM MERCANTILE AGENT Narrative [facility] - 09/07/2024 9:20 AM MERCANTILE AGENT Is the Patient experiencing symptoms consistent with COVID?->Yes us Abhay Lance MD LAB MICROBIOLOGY - GENERAL ORDER MARIA E Final Result [facility] [address] [facility] Department [place] [address] * 48 HR Holter Monitor (08/16/2024 3:55 PM MERCANTILE AGENT) Anatomical Region Laterality Modality Electrocardiogra phy Narrative 08/26/2024 12:20 PM MERCANTILE AGENT Images from the original result were not included. AMBULATORY TABLE LEVER OPERATOR REPORT Patient Name: Tara Ta Date of [...] correlate to sinus tachycardia. Shahbaz Sanchez M.D., [facility] 08/26/24 Procedure Note Shahbaz Sanchez MD - 08/26/2024 Images from the original note were not included. AMBULATORY TABLE LEVER OPERATOR REPORT Patient Name: Tara Ta Date of [...] correlate to sinus tachycardia. Shahbaz Sanchez M.D., [facility] 08/26/24 Mp Borja MD CV CARDIAC SERVICES PROC EDURES Final Result * ECG 12 lead (08/16/2024 3:55 PM MERCANTILE AGENT) Mp Borja MD ECG ORDERABLES Final Re sult * POCT lipid panel (08/16/2024 3:26 PM MERCANTILE AGENT) Cholesterol, POC 172 mg/dL HDL, POC 49 mg/dL Triglycerides, POC 88 mg/dL LDL Cholesterol POC 106 mg/dL Chol/HDL Ratio, POC 3.5 Non-HDL Cholesterol, POC 123 mg/dL Cholesterol Total, POC 172 mg/dL Capillary blood 08/16/2024 3 :26 PM MERCANTILE AGENT Mp Borja MD POINT OF CARE TEST ORDER MARIA E Final Result * (ABNORMAL) Hemoglobin A1c (09/22/2023 9:46 AM MERCANTILE AGENT) Hgb A1C 6.0(H) 4.0 - 5.6 % MARY Comment:Testing performed by : [address] [address] Estimated Average Glucose 126 mg/dL MARY Comment: The ADA recommends reporting an estimated Average Glucose (eAG) with all Hemoglobin A1c results using the equation derived from a study of 507 normal and diabetic adults. Minority populations were underrepresented and children were not included. (Diabetes Care 31:6179-5251, 2008). The eAG is not equivalent to a fasting glucose. Testing performed by: [address] [address] Blood 09/22/2023 9:46 AM MERCANTILE AGENT 09/22/2023 12:02 PM MERCANTILE AGENT us Kenyd Pablo MD LAB BLOOD ORDERABLES Final Res ult MARY [facility] [address] [facility] Department [place] [address] * (ABNORMAL) High Risk HPV DNA Detection with Genotyping (Molecular component) (09/22/2023 9:37 AM MERCANTILE AGENT) HPV HR 16 Not Detected Not Detected MARY Comment:Testing performed by : [facility], [address] [place]., [address] HPV HR 18 Not Detected Not Detected MARY Comment:Testing performed by : [facility], [address] [facility], [address] HPV HR Non 16/18 Detected(A) Not Detected [...] this test have been verified by the [facility] Molecular Infectious Disease laboratory. Correlate with separately reported cytology results, as applicable. Interpretive data last revised 23 Testing performed by: [facility], [address] [place]., [address] Endocervical 09/22/2023 9:37 AM MERCANTILE AGENT 09/23/2023 9:23 AM MERCANTILE AGENT Narrative MARY - 09/24/2023 12:05 AM MERCANTILE AGENT Clinical history and diagnosis->screening Number of vials->1 Testing type->Screening Last menstrual period (date if known)->09/09/2023 us Kendy Pablo MD LAB BODY FLUIDS AND STOOLS ORD ERABLES Final Result Performing Organization Address [facility] Co de Phone Number MARY [address] [facility] [address] [facility] Department [place] [address] * Hepatitis C antibody (12/13/2016 1:24 PM CDT) Hep C Ab NON-REACTI VE NON-REACTI VE [facility] HISTORICAL RESULTS SIGNAL TO CUT-OFF 0.03 <1.00 [facility] HISTORICAL RESULTS 12/13/2016 1:24 PM CDT 12/16/2016 1:15 PM CDT Narrative [facility] HISTORICAL RESULTS - 12/16/2016 1:00 PM CDT LTC ONLY: NURSE COLLECTED - NO SPECIMEN PROVIDED. PERFORMING LAB: [place], [facility] [address], [place] [address] Kp Vargas D.O., MPH us Antonia Hoff MD LAB MICROBIOLOGY - GENERAL O RDERABLES Final Result Performing Organization Address [facility] Co de Phone Number [facility] HISTORICAL RESULTS from Last 3 Months or Most Recently Relevant to Health Maintenance Insurance [facility] Care Teams Staff Training And Development Manager Relationship Specialty Start Date End Date Araceli Guzmán PA PCP - General Physician 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
--- OUTSIDE RECORDS SUMMARY | 2024-10-11 17:01 | XMS_ITS | Data Portability ---
Author Organization [facility] [place] Address [address] [place] [address] [place] [address] Care Team Providers Care Retail Operations Manager Name Role Phone GIA MORENO Primary Care Provider Assessment Encounter Date Assessment Date Assessment LastModified by Organization Details LastModified Time 03/23/2021 03/23/2021 check us, continue metformin for pcos, rec prometrium monthly Not available 03/27/2021 09:32:15 Plan of Treatment Reminders Order Date Submit Date Provider Last Modified By Organization Details Last Modified Time Details Appointments None recorded. Lab None recorded. Referral None recorded. Procedures None recorded. Surgeries None recorded. Imaging US, pelvis 2020 021 [email or web address] [place], [address], [place], [address], 17:53:52 US, transvagin al 2020 [email or web address], [address], [place], [address], 17:53:52 Medication Orders letrozole 2.5 mg tablet 2019 020 [email or web address] [id number], [address] [facility], [place], [address], 0 16:52:53 Provera 10 mg tablet 2019 020 INTERFACE [id number], [address] [place], [address], 0 14:16:04 Patient TargetsNo targets recorded. Patient InstructionsNo instructions recorded. Reason for Referral None Reported. Results Created Date Observation Date Name Description Value Unit Range Abnormal Flag Note LastModifiedBy Organization Detail LastModifiedTime 03/17/20 20 03/18/2020 shbg (sex hormo ne-bi nding globu angélica), serum sex hormone binding globulin (shbg) 19.6 nmol/ L 24.6-1 22.0 low STAGE MALE FEMAL E Tanne r Stage I: 26-18 6 nmol/ L 30-17 3 nmol/ L Tanne r Stage II: 22-16 9 nmol/ L 16-12 7 nmol/ L Tanne r Stage III: 13-10 4 nmol/ L 12-98 nmol/ L Tanne r Stage IV: 11-60 nmol/ L 14-15 1 nmol/ L Tanne r Stage V: 11-71 nmol/ L 23-16 5 nmol/ L Not Available [facility] ([facility]) [address] [facility] [address], [place], [address], 03/22/2020 23:20:12 03/17/20 20 03/18/2020 prola ctin, serum prolactin 20.00 NG/mL 4.79-2 3.30 Not Available [facility] ([facility]) [address] [facility] [address], [place], [address], 03/22/2020 23:20:12 03/17/20 20 03/18/2020 proge stero ne, serum progesterone 0.19 NG/mL Proge stero ne Refer ence Range Healt hy women Folli cular phase 0.057 - 0.893 Ovula tion phase 0.121 - 12.0 Lutea l phase 1.83 - 23.9 Postm enopa use <0.05 - 0.126 Healt hy pregn ant women 1st trime ster 11.0 - 44.3 2nd trime ster 25.4 - 83.3 3rd trime ster 58.7 - 214 Not Available [facility] ([facility]) [address], [place], [address], 03/22/2020 23:20:12 03/17/20 20 03/18/2020 lh (lute inizi ng hormo ne), serum luteinizing hormone 12.20 mIU/m L LH Refer ence Range Men: 1.7 - 8.6 Women : Folli cular phase 2.4 - 12.6 Ovula tion phase 14.0 - 95.6 Lutea l phase 1.0 - 11.4 Postm enopa use 7.7 - 58.5 Not Available [facility] ([facility]) [facility] [facility] [address], [place], [address], 03/22/2020 23:20:13 03/17/20 20 03/18/2020 FSH (foll icle- stimu latin g hormo ne), serum FSH 5.58 mIU/m L FSH Refer ence Range Men: 1.5 - 12.4 Women : Folli cular phase 3.5 - 12.5 Ovula tion phase 4.7 - 21.5 Lutea l phase 1.7 - 7.7 Postm enopa use 25.8 - 134.8 Not Available [facility] ([facility]) [facility] [facility] [address], [place], [address], 03/22/2020 23:20:13 03/17/20 20 03/18/2020 estra diol, serum estradiol 53 pg/mL Estra diol Refer ence Range Healt hy women Folli cular phase 12.4 - 233 Ovula tion phase 41.0 - 398 Lutea l phase 22.3 - 341 Postm enopa use <5 - 138 Healt hy pregn ant women 1st trime ster 154 - 3243 2nd trime ster 1561 - 89874 3rd trime ster 8525 - >3000 0 Not Available [facility] ([facility]) [facility] [facility] [address], [place], [address], 03/22/2020 23:20:14 03/17/20 20 03/18/2020 HbA1c (hemo globi n A1c), blood hemoglobin A1C 5.9 % <5.7 high The follo wing HbA1c range s recom adriano d by the Hailee damian Diabe joana Assoc iatio n (ADA) may be used as an aid in the diagn osis of diabe joana melli tus. HA1c Sugge sted Diagn osis >=6.5 % Diabe tic 5.7% - 6.4% Pre-D iabet ic <5.7% Non-D iabet ic Not Available [facility] ([facility]) [facility] [facility] [address], [place], [address], 03/22/2020 23:20:14 03/17/20 20 03/18/2020 estim ated avera ge gluco se estimated average glucose 123 mg/dL [place] ge Gluco se is calcu lated using the equat ion AG = (28.7 x HgbA1 c) - 46.7 based on the guide lines estab lishe d by the ADA. Not Available [facility] ([facility]) [facility] [facility] [address], [place], [address], 03/22/2020 23:20:14 03/17/20 20 03/18/2020 TSH, serum or plasm a TSH reflex to FT4 3.10 mU/L 0.27-4 .20 Not Available [facility] ([facility]) [facility] [facility] [address], [place], [address], 03/22/2020 23:20:15 03/17/2003/18/2020 dhea- sulfa te, serum DHEA-sulfate 32 ug/dL 99-340 low Not Available [facility] ([facility]) [address] [place] [address] [address], [place], [address], 03/22/2020 23:20:15 03/17/20 20 03/22/2020 testo stero ne, total , serum testosterone , total (female and children) 50.8 NG/dL 10.0-5 2.0 Preme nopau talha 10-52 ng/dL (Grea ter than 18 years ) Postm enopa usal 6-30 ng/dL This test was devel oped and its perfo rmanc e luz cteri stics were deter mined by [facility]. It has not been clear ed or appro samir by the FDA. The labor atory is regul ated under CLIA as quali fied to perfo rm high- compl exity testi ng. This test is used for clini adele purpo ses and shoul d not be regar ded as inves tigat ional or for resea rch. Not Available [facility] ([facility]) [address], [place], [address], 03/22/2020 23:20:15 03/17/20 20 03/22/2020 17-hy droxy proge stero ne, QN, serum 17-hydroxypr ogesterone, hplc-MS/MS 69.38 NG/dL <=206. 00 INTER PRETI VE INFOR MATIO N for 17-Hy droxy proge stero ne in femal es: Folli cular 15 to 70 ng/dL Lutea l 35 to 290 ng/dL Acces s compl ete set of age- and/o r gende r-spe cific refer ence inter vals for this test in the [facility] ([employer] [facility].c om). Test devel oped and luz cteri stics deter mined by [facility]. See Compl iance State ment B: [email or web address] ab.co m/CS Perfo rmed By: [facility] [address] [place] [address] Labor atory Direc tor: César Rolon do, MD, MS Not Available [facility] ([facility]) [address], [place], [address], 03/22/2020 23:20:16 09/03/20 20 04/27/2020 proge stero ne, serum progesterone 7.41 NG/mL Proge stero ne Refer ence Range Healt hy women Folli cular phase 0.057 - 0.893 Ovula tion phase 0.121 - 12.0 Lutea l phase 1.83 - 23.9 Postm enopa use <0.05 - 0.126 Healt hy pregn ant women 1st trime ster 11.0 - 44.3 2nd trime ster 25.4 - 83.3 3rd trime ster 58.7 - 214 Not Available [facility] ([facility]) [address], [place], [address], 04/27/2020 08:10:27 03/23/20 21 03/23/2021 TSH TSH 2.15 uIU/m L 0.30-5 .33 Not Available [facility] (Lab) [address] [facility], [place], [address], 03/24/2021 01:47:30 03/26/20 21 03/26/2021 US, pelvi s No observ ation record ed. [email or web address] [place] [address], [place], [address], 03/26/2021 17:41:46 03/26/20 21 03/26/2021 US, trans vagin al No observ ation record ed. [email or web address] [place] [address], [place], [address], 03/26/2021 17:41:58 03/26/20 21 03/26/2021 US, pelvi s No observ ation record ed. LILLIANA Valenzuela [address], [place], [address], 03/28/2021 12:53:18 Result Notes None recorded. Problems Name Problem SNOMED Code Status Onset Date Resolution Date Notes Provider Name and Address Organization Details Recorded Time Hyperpro lactinem dc 553775563 Completed 201803/23/2021 Hyperpro lactinem ia;Recor ded Elsewher e: No [facility] N Xuanti ce ID: 0001 Julius lable Time: 01:30:00 PM Desiree greene, [facility] 16:38:50 Secondar y oligomen orrhea [id number] Completed 201803/23/2021 Secondar y oligomen orrhea;R ecorded Elsewher e: No Locat ion: [facility]: N Xuanti ce ID: 0001 Julius lable Time: 01:30:00 PM Desiree greene, [facility] 16:38:[address] Concept Completed 201803/23/2021 Encntr for general adult medical exam w/o abnormal findings ;Recorde d Elsewher e: No Locat ion: [facility] S ource: [facility] ángel: N Xuanti ce ID: 0001 Julius lable Time: 01:30:00 PM Desiree greene, [facility] 16:38:[address] Concept Completed 201803/23/2021 Encntr for regulatory affairs strategy specialist exam (general ) (routine ) w/o abn findings ;Recorde d Elsewher e: No Locat ion: [facility]: [facility]: N Xuanti ce ID: 0001 Julius lable Time: 01:30:00 PM Desiree greene, [facility] 16:38:56 Syphilis test finding [id number] Completed 201803/23/2021 Encounte r for screenin g for infectio n w/ a predomin antly sexual mode of transmis alicja;Rec orded Elsewher e: No Locat ion: [facility]: N Xuanti ce ID: 0001 Julius lable Time: 01:30:00 PM Desiree greene [facility] 16:38:58 Female infertil ity associat ed with anovulat ion [id number] Completed 201803/23/2021 Female infertil ity associat ed with anovulat ion;Miguel rded Elsewher e: No [facility] S ource: [employer] ángel: N Practi ce ID: 0001 Julius lable Time: 02:15:00 PM Desiree greene [facility] 16:38:47 Problem Notes None recorded. Procedures Surgical History Date Name Laterality Status Provider Name and Address Organization Details Recorded Time 03/12/2019 Date of Last Pap Smear completed Desiree Ariza [facility] 03/22/2020 11:36:25 Imaging Results Imaging Date Name Status LastModified by Organization Details LastModified Time 03/26/2021 US, pelvis completed [email or web address] [place] [address], [place], [address], 03/26/2021 17:41:46 03/26/2021 US, transvaginal completed [email or web address] [facility] [address], [place], [address], 03/26/2021 17:41:58 03/26/2021 US, pelvis completed LILLIANA Bianca [address], [place], [address], 03/28/2021 12:53:18 Procedure Notes None recorded. Medical Equipment None Reported. Allergies No known drug allergies Medications Name Sig Start Date Stop Date Status Note LastModified by Organization Details LastModified Time medroxypr ogesteron e 10 mg tablet Take 1 tablet every day by oral route. active Not Available Not Available No t Available metformin 500 mg tablet active Not Available Not Available Not Available clomiphen e citrate 50 mg tablet take 1 Tablet by oral route every day for 5 days days 3-7 of cycle 04/10 completed Prescrib ed Elsewher e: No Locat ion: [facility] By: ming lehman DateTime : 04/06/20 02:15:00 PM Not Available Not Available Not Available simvastat in 10 mg tablet TAKE 1 TABLET BY MOUTH EVERY DAY active Not Available Not Available No t Available butalbita l-acetami nophen-ca ffeine 50 mg-325 mg-40 mg tablet 03/23 completed Not Available Not Available Not Available progester one micronize d 200 mg capsule Take 1 capsule at bedtime every night from February 15 - February 26 active Not Available Not Available No t Available ergocalci ferol (vitamin D2) 1,250 mcg (50,000 unit) capsule active Not Available Not Available Not Available letrozole 2.5 mg tablet TAKE 2 TABLET BY MOUTH EVERY DAY DAYS 5-9 OF CYCLE active Not Available Not Available No t Available albuterol sulfate HFA 90 mcg/actua tion aerosol inhaler INHALE 2 PUFFS EVERY 4 6 HOURS BY INHALATI ON ROUTE NEEDED. active Not Available Not Available No t Available ondansetr on 4 mg disintegr ating tablet 03/17 completed Not Available Not Available Not Available sertralin e 50 mg tablet 03/17 completed Not Available Not Available Not Available loratadin e 10 mg tablet active Not Available Not Available Not Available cholecalc iferol (vitamin D3) 50 mcg (2,000 unit) capsule active Not Available Not Available Not Available OneTouch Verio test strips TESTS TWICE A DAY active Not Available Not Available No t Available Qvar RediHaler 80 mcg/actua tion HFA breath activated aerosol active Not Available Not Available Not Available OneTouch Delica Plus Lancet 33 gauge USE TO CHECK GLUCOSE TWICE DAILY active Not Available Not Available No t Available OneTouch Verio Reflect Meter USE TO CHECK GLUCOSE TWICE DAILY active Not Available Not Available No t Available Vitals Date Recorded Body height Body mass index (BMI) Body weight Systolic blood pressure Diastolic blood pressure Provider Name and Address Organization Details Last Updated DateTime 12/27/2020 168.91 cm 48 kg/m2 160798.9 g 138 mm[Hg] 86 mm[Hg] Katlyn Oneil [facility] 15:22:37 Date Recorded Body height Body mass index (BMI) Body weight Systolic blood pressure Diastolic blood pressure Provider Name and Address Organization Details Last Updated DateTime 03/23/2021 168.91 cm 48.2 kg/m2 961590.4 9 g 146 mm[Hg] 83 mm[Hg] Desiree Ariza [facility] 1 16:37:49 Date Recorded Body height Body mass index (BMI) Body weight Systolic blood pressure Diastolic blood pressure Provider Name and Address Organization Details Last Updated DateTime 03/17/2020 168.91 cm 46.7 kg/m2 161540.1 6 g 139 mm[Hg] 92 mm[Hg] Desiree Ariza [facility] 0 12:53:00 Social History Question Answer Notes LastModified by Organizat ion Details LastModified Time Tobacco Smoking Status Never Smoker Desiree Ariza [facility] 03/22/2020 11:41:08 What Is Your Level Of Alcohol Consumption? Occasional [email or web address] Information not available 03/22/2020 If You Are , What Was Your Level Of Alcohol Consumption Prior To ? None Information not available 03/23/2021 Are You Blind Or Do You Have Difficulty Seeing? No Information not available 03/23/2021 What Is Your Level Of Caffeine Consumption? Occasional [email or web address] Information not available 03/23/2021 In The 14 Days Before Symptom Onset, Have You Had Close Contact With A Laboratory-confir med COVID-19 While That Case Was Ill? No [email or web address] Information not available 03/23/2021 In The 14 Days Before Symptom Onset, Have You Had Close Contact With A Person Who Is Under Investigation For COVID-19 While That Person Was Ill? No [email or web address] Information not available 03/23/2021 Have You Been To An Area Known To Be High Risk For COVID-19? No [email or web address] Information not available 03/23/2021 Are You Deaf Or Do You Have Serious Difficulty Hearing? No [email or web address] Information not available 03/23/2021 What Type Of Diet Are You Following? REGULAR [email or web address] Information not available 03/23/2021 Do You Or Have You Ever Used E-cigarettes Or Vape? Never Used Electronic Cigarettes [email or web address] Information not available 03/22/2020 What Was The Date Of Your Most Recent Tobacco Screening? 03/23/2021 [email or web address] Information not available 03/23/2021 Have You Ever Been Counseled For Unhealthy Alcohol Use? No [email or web address] Information not available 03/23/2021 Do You Use Your Seat Belt Or Car Seat Routinely? Yes [email or web address] Information not available 03/23/2021 Do You Have Smoke And Carbon Monoxide Detectors In Your Home? Yes [email or web address] Information not available 03/23/2021 Do You Or Have You Ever Used Smokeless Tobacco? Never Used Smokeless Tobacco [email or web address] Information not available 03/22/2020 How Much Tobacco Do You Smoke? No [email or web address] Information not available 03/22/2020 Do You Feel Stressed (tense, Restless, Nervous, Or Anxious, Or Unable To Sleep At Night)? [id number] [email or web address] Information not available 03/23/2021 Do You Use Any Illicit Or Recreational Drugs? No [email or web address] Information not available 03/23/2021 Do You Use Sunscreen Routinely? Yes [email or web address] Information not available 03/23/2021 Has Tobacco Cessation Counseling Been Provided? No Information not available 03/23/2021 Do You Or Have You Ever Used Any Other Forms Of Tobacco Or Nicotine? No [email or web address] Information not available 03/23/2021 Sex: Female Functional Status Question Answer Note LastModified by Organizat ion Details LastModified Time Are you able to walk? YESWOREST [email or web address] Information not available 03/23/2021 What is your exercise level? Occasional [email or web address] Information not available 03/22/2020 Mental Status None recorded. Family History Relationship Description Onset Age of this Age Resolved Age Notes LastModified by Organization Details LastModified Time Maternal Grandmother Malignant tumor of breast [email or web address] Not available 03/22 11:41:00 Medical History Condition Response Other N Blood Transfusion N Dermatologic Disorders N Gestational Diabetes N Anxiety Disorder N Autoimmune disease N Arthritis N Polyps N Infertility N Acid Reflux (GERD) N Cancer N Varicosities N Stroke N Neurologic/Epilepsy N Fibromyalgia N Headaches N Kidney Disease N Heart Problems N Kidney or Bladder Problems N Eating Disorder N Art (IVF or FET) N Hepatitis/Liver Disease N No Past Medical History N Urinary Tract Infection N Asthma Y Trauma/Violence N Thrombophilias N Allergies (Food, seasonal, environmental ) N Breast Cancer N Drug/Latex Allergies/Reactions N Lung Disease N Defects or Inherited Disease N Breast Problem N Hematologic disorders N Anesthesia Complications N History of STI N Deep Vein Thrombosis N Polycystic ovary syndrome N History of abnormal pap N Endometriosis N High Cholesterol N Thyroid Problems N GI Problems N Anemia N Psychiatric Illness N Ovarian Cancer N Diabetes Y Pulmonary (TB, Asthma) N Eczema N Abuse/Domestic Violence N Depression/ depression N Heart Disease N Pre-Eclampsia N Hypertension N Osteoporosis N Gynecological History Statement/Question Response Abnormal Pap N Sexually Active? Y STIs/STDs N HPV Vaccine N Date of Last Pap Smear 03/12/2019 Sexual Problems? N Current Control Method Seeking Pre gnancy Desired Control Method None Obstetrics History GPAL:G 1 P 0 0 1 0 Type Value Spontaneous 1 Living 0 Total 1 Past Encounters Encounter ID Performer Location Encounter Start Date Encounter Closed Date Diagnosis/Indication Diagnosis SNOMED-CT Code Diagnosis ICD10 Code Diagnosis Note [id number] Mercedes Billy CNM [place] [address] [address] 03/17/2020 12:36:32 03/17/2020 14:45:04 Female infertility associated with anovulation 353512418 N97.0 discussed COST with pt and , reviewed clomid/let razole and will check pcos labs and plan to induce cycle with provera, will then take letrazole and check LH kits and MLP. declined RHYS at this time. se of letrazole/ clomid reviewed including cash, vasomotor sxs, cramping, multiple gestation, ovarian hypersimul ation. all questions answered and handouts given. pt to call for MLP if no cycle after provera call for follow up Female infertility 77568 08 N97.9 Amenorrhea 15360669 N91. 2 [id number] Deniz Truong MD [place] [address] [address] 12/27/2020 14:55:42 12/27/2020 16:39:47 Abnormal uterine bleeding [id number] 9100 N93.9 Polycystic ovary syndrome 264093532 E28.2 this patient is a 30-year-ol d female with longstandi ng an ovulatory bleeding. We reviewed her laboratory evaluation . She has a borderline testostero ne and a low serum hormone binding globulin. We discussed abnormal uterine bleeding and amenorrhea . We discussed polycystic ovarian syndrome. We discussed the diagnosis. We discussed the underlying disease process. We discussed laboratory evaluation . We discussed her ultrasound and laboratory results. We discussed the prevention of endometria l cancer. We discussed protecting the endometriu m and how that is carried out. We discussed treatment in the context of a desired . We discussed medical treatment. We discussed the risk associated with PCOS and long-term health outcomes. we discussed the necessity of protecting the endometriu m. Patient is opposed any hormonal contracept ion to treat her bleeding or to even get her bleeding under control. Patient was recently started on metformin by her primary care doctor. She also states she has a weight loss plan. We ultimately agreed to progestero ne withdrawal bleed. She will return in 3 months. Spent 45 minutes talking about a detailed complex issue with an unknown prognosis. Patient is trying to get last summer with Clomid. She would like to have sometime in the near future. [id number] Mercedes Billy CNM [place] [address] [address] 03/23/2021 16:24:15 03/27/2021 15:42:46 Polycystic ovary syndrome 577750500 E28.2 Irregular periods 370546 07 N92.6 Trying to conceive 26185 9001 Z31.9 [id number] [facility] [address] [address] 03/26/2021 17:04:20 03/26/2021 17:36:10 Amenorrhea 27052454 N91.2 Health Concerns Section Related Observation LastModified by Organization Detai ls LastModified Time None Recorded Concern Status LastModified by Organization Details LastModified Time None Recorded Advance Directives Directive None Recorded Payers Encounter Date Sequence Insurance Name Policy Number Policy Georges Covered Member ID Georges Member ID Guarantor Name 03/17/2020 1 [facility] - DOS PRIOR TO 2021 (MEDICAID REPLACEMENT - HMO) Tara Ta [id number] Tara Ta 12/27/2020 1 [place] [id number] Tara Ta [id number] Tara Ta 03/23/2021 1 [place] [id number] Tara Ta [id number] Tara Ta 03/26/2021 1 [place] [id number] Tara Ta [id number] Tara Ta Notes Date Note Type Note Provider Name and Address Organization Details Recorded Time 03/17/2020 text/html pt has been tryi ng to get since 2016 with no + UPT's. Pt has very irregular cycle and go up to 3 months without, lMP October 2019. Had work up in 2017 tried induction of cycle and one dose of clomid, never followed LH kits or MLP. Pt wanting to do that now and be more active. has not had a semen analysis. Mercedes Billy CNM [address], [place], [address], [facility] 03/17/2020 14:18:25 12/27/2020 text/html this patient is a 30-year-old female with longstanding an ovulatory bleeding. We reviewed her laboratory evaluation. She has a borderline testosterone and a low serum hormone binding globulin. We discussed abnormal uterine bleeding and amenorrhea. We discussed polycystic ovarian syndrome. We discussed the diagnosis. We discussed the underlying disease process. We discussed laboratory evaluation. We discussed her ultrasound and laboratory results. We discussed the prevention of endometrial cancer. We discussed protecting the endometrium and how that is carried out. We discussed treatment in the context of a desired . We discussed medical treatment. We discussed the risk associated with PCOS and long-term health outcomes. we discussed the necessity of protecting the endometrium. Patient is opposed any hormonal contraception to treat her bleeding or to even get her bleeding under control. Patient was recently started on metformin by her primary care doctor. She also states she has a weight loss plan. We ultimately agreed to progesterone withdrawal bleed. She will return in 3 months. Spent 45 minutes talking about a detailed complex issue with an unknown prognosis. Patient is trying to get last summer with Clomid. She would like to have sometime in the near future. Deniz Truong MD [address], [place], [address], [facility] 12/27/2020 16:38:54 03/23/2021 text/html trying to concei ve, irregular cycles but had cycle january and february spotting in between Mercedes Billy CNM [address], [place], [address], [facility] 03/27/2021 09:32:19 OBGyn Episode Ob Episode Information Episode Created Date Number of Fetuses Patient Bloodtype Patient rh Status Prepregnancy Weight lbs Domestic Partner Domestic Partner Phone Father Name Duplicator Punch Operator Status 03/22/20 20 1 CLOSED Fetus Data First Name Last Name Admitted to NICU Weight (g) Sex Living Outcome Pediatric Complications Fetus ID Race Codes Race Delivery Type , Spontane ous [id number] Mirza Calculation Initial Mirza Date Initial Exam Date Initial Exam Provider Initial Ultrasound Date Last Menstrual Period Date Ultra Sound Weeks Gestation 0 Eighteen To Twenty Week Mirza Update Ultra Sound Date Fundal Height At Umbil Quickening Date Ultra Sound Latest Weeks Gestation Final Mirza Confirmed By Final Mirza Confirmed Date Final Mirza Date Ultra Sound Latest Days Gestation 0 0 Menstrual History Last Menstrual Date Menses Monthly On Bcp Conception Prior Menses Frequency Hcg Plus Date Menarche Onset Age Delivery Information Delivery Date Delivery Type Labor Anesthesia Weeks Gestation Incision Type Labor Labor Length Hrs Delivered By Post Complications Tubal Sterilization Discharge Date Comments 2017 miscarria ge Discharge Information Feeding Method Contraceptive Method Maternal HG B and HCT Levels
--- OUTSIDE RECORDS SUMMARY | 2024-10-11 17:01 | XMS_ITS | Clinical Summary ---
Author Organization [facility] [address] Address [address] [place] [address] Care Team Providers Care Chip Bin Conveyor Tender Name Role Phone Araceli Guzmán Primary Care [...] Department Care Team Description 09/21/2024 3:00 PM WARDROBE ASSISTANT Office Visit [facility] Cardiology [address] [facility] [address] [place] [phone] Paradise Ludwig NP Sinus tachycardia (Primary Dx) 09/07/2024 9:34 AM WARDROBE ASSISTANT - 09/07/2024 11:49 AM WARDROBE ASSISTANT Emergency [address] [address] Gastroenteritis (Primary Dx) Discharge Disposition: Discharge to home or self care 08/16/2024 3:30 PM WARDROBE ASSISTANT Office Visit [facility] Cardiology at [address] [place] [phone] Mp Borja MD Tachycardia, unspecified 08/16/2024 3:00 PM WARDROBE ASSISTANT Ancillary Procedure [facility] Cardiology at [address] [place] [phone] Tachycardia, unspecified from Last 3 Months Surgical [...] on file Legal Sex Female 7:51 PM WARDROBE ASSISTANT Gender Identity Female 08/09/2024 6:46 AM WARDROBE ASSISTANT Sexual Orientation Straight 08/09/2024 6: 46 AM WARDROBE ASSISTANT Obstetrics History Para Term AB IAB SAB Ectopic Multiple Livin g Live Births 3 0 3 3 0 Date Outcome GA Total Labor Labor/2nd/3rd Weight Sex Type Anes PTL Joan A1 A5 Name Clin SAB SAB SAB Last Filed Vital Signs Vital Sign Reading Time Taken Comments Blood Pressure 128/80 09/21/2024 2:57 PM WARDROBE ASSISTANT Pulse 82 09/21/2024 2:57 PM WARDROBE ASSISTANT Temperature 36.9 C (98.4 F) 09/07/2024 8:52 AM WARDROBE ASSISTANT Respiratory Rate 16 09/07/2024 9:40 AM WARDROBE ASSISTANT Oxygen Saturation 97% 09/21/2024 2:57 PM WARDROBE ASSISTANT Inhaled Oxygen Concentration - - Weight 128.8 kg (284 lb) 09/21/2024 2:57 PM WARDROBE ASSISTANT Height 170.2 cm (5' 7 ) 09/21/2024 2:57 PM WARDROBE ASSISTANT Body Mass Index 44.48 09/21/2024 2:57 PM WARDROBE ASSISTANT Plan of Treatment Health Maintenance Due Date [...] POCT HCG, URINE STAT 09/07/2024 10:16 AM WARDROBE ASSISTANT URINALYSIS, MICROSCOPIC ONLY STAT 09/07/2024 10:16 AM WARDROBE ASSISTANT URINALYSIS AND REFLEX TO MICROSCOPIC AND CULTURE STAT 09/07/2024 10:16 AM WARDROBE ASSISTANT EGFR STAT 09/07/2024 9:13 AM WARDROBE ASSISTANT DIFFERENTIAL AUTO STAT 09/07/2024 9:1 3 AM WARDROBE ASSISTANT LIPASE STAT 09/07/2024 9:13 AM WARDROBE ASSISTANT COMPREHENSIVE METABOLIC PANEL STAT 09/07/2024 9:13 AM WARDROBE ASSISTANT CBC WITH AUTO DIFFERENTIAL STAT 09/07/2024 9:13 AM WARDROBE ASSISTANT INFLUENZA A/B, RSV, AND COVID-19 PCR STAT 09/07/2024 8:37 AM WARDROBE ASSISTANT HOLTER MONITOR 48 HR Routine 08/16/2024 3:55 PM WARDROBE ASSISTANT Tachycardia, unspecified ECG 12-LEAD Routine 08/16/2024 3:55 PM WARDROBE ASSISTANT Tachycardia, unspecified POCT LIPID PANEL Routine 08/16/2024 3:26 PM WARDROBE ASSISTANT Tachycardia, unspecified HEMOGLOBIN A1C Routine 09/22/2023 9:46 AM WARDROBE ASSISTANT Abnormal uterine bleeding (AUB) HIGH RISK HPV DNA DETECTION WITH GENOTYPING Routine 09/22/2023 9:37 AM WARDROBE ASSISTANT Well woman exam with routine gynecological exam HEPATITIS C ANTIBODY Routine 12/13/2016 1:24 PM CDT from Last 3 Months or Most Recently Relevant to Health Maintenance Results * (ABNORMAL) Urinalysis reflex to microscopic and culture Urine (09/07/2024 10:16 AM WARDROBE ASSISTANT) Color, ur Yellow Yellow Clarity, ur Cloudy(A) Clear [facility] Specific gravity, ur 1.039(H) 1.003 - 1.030 [facility] pH, urine 5.5 [facility] Comment: Interpretive Data U rine pH is affected by diet, medications, systemic acid-base disturbances, and renal tubular function. pH may affect urinary stone formation. For example, urine pH below 6.0 may help reduce the tendency for calcium phosphate stones and pH greater than 6.0 may reduce the tendency for uric acid stone formation. Source: [facility] Current Interpretive Data was last revised on 2017 Protein, ur ql 1+(A) Negative [facility] Glucose, ur ql Negative Negative [facility] Ketones, ur Negative Negative [facility] Bilirubin, ur Negative Negative [facility] Blood, ur 3+(A) Negative [facility] Urobilinogen, ur 2.0(A) <2.0 mg/dL [facility] Nitrite, ur Negative Negative [facility] Leukocyte esterase, ur Negative Negative [facility] UA reflex comment Reflex to microscopic UA will be performed. [facility] Urine 09/07/2024 10:1 6 AM WARDROBE ASSISTANT 09/07/2024 10:24 AM WARDROBE ASSISTANT us Nora MAY LAB MICROBIOLOGY - GENERAL ORDER MARIA E Final Result MARY [address] [facility] Department [place] [address] * (ABNORMAL) Urinalysis, microscopic only (09/07/2024 10:16 AM WARDROBE ASSISTANT) WBC, ur 0-5 0 - 5 /HPF RBC, ur 3-5(A) 0 - 2 /HPF [facility] Epithelial cells, squamous, ur 11-20(A) 0 - 5 /HPF [facility] Comment:Suggestive of contam ination. Consider recollection by clean catch. Mucous, ur Present(A) [facility] Calcium oxalate crystals, ur 4+(A) [facility] Culture Reflex Comment Reflex conditions for urine culture (WBC >10) not met. [facility] Urine 09/07/2024 10:1 6 AM WARDROBE ASSISTANT 09/07/2024 10:24 AM WARDROBE ASSISTANT Nora MAY LAB URINE ORDERABLES Final Resul t [facility] [address] [facility] Department of Laboratories [place], [place] [id number] * POCT hCG, urine (09/07/2024 10:16 AM WARDROBE ASSISTANT) HCG, ur, POC Negative Negative Lot Number [id number] QC Backgroud Clear Acceptable QC Control Line Acceptable Urine 09/07/2024 10:1 6 AM WARDROBE ASSISTANT Nora MAY POINT OF CARE TEST ORDERABLES Fi nal Result * eGFR (09/07/2024 9:13 AM WARDROBE ASSISTANT) eGFR >90 >=60 mL/min/1. 73 m2 Comment: [...] last reviewed 2021. Blood 09/07/2024 9:13 AM WARDROBE ASSISTANT 09/07/2024 9:15 AM WARDROBE ASSISTANT us Nora MAY LAB BLOOD ORDERABLES Final Resul t [facility] [address] [facility] Department [place] [address] * Differential, auto (09/07/2024 9:13 AM WARDROBE ASSISTANT) Pathologist [facility] Neutrophil abs 3.7 1.5 - 6.5 K/cumm Imm gran abs 0.0 0.0 - 0.1 K/cumm [facility] Lymphocyte abs 1.7 0.8 - 3.3 K/cumm [facility] Monocyte abs 0.6 0.2 - 0.8 K/cumm [facility] Eosinophil abs 0.0 0.0 - 0.5 K/cumm [facility] Basophil abs 0.0 0.0 - 0.1 K/cumm [facility] Neutrophil pct 61.2 % [facility] Comment: Interpretive Data Percent cell count reference ranges are not reported, since discordance with absolute values may lead to misinterpretation of CBC data. Current Interpretive Data was last revised on 2017. Imm gran pct 0.3 % [facility] Comment: Interpretive Data Percent cell count reference ranges are not reported, since discordance with absolute values may lead to misinterpretation of CBC data. Current Interpretive Data was last revised on 2017. Lymphocyte pct 28.4 % [facility] Comment: Interpretive Data Percent cell count reference ranges are not reported, since discordance with absolute values may lead to misinterpretation of CBC data. Current Interpretive Data was last revised on 2017. Monocyte pct 9.9 % [facility] Comment: Interpretive Data Percent cell count reference ranges are not reported, since discordance with absolute values may lead to misinterpretation of CBC data. Current Interpretive Data was last revised on 2017. Eosinophil pct 0.2 % [facility] Comment: Interpretive Data Percent cell count reference ranges are not reported, since discordance with absolute values may lead to misinterpretation of CBC data. Current Interpretive Data was last revised on 2017. Basophil pct 0.0 % [facility] Comment: Interpretive Data Percent cell count reference ranges are not reported, since discordance with absolute values may lead to misinterpretation of CBC data. Current Interpretive Data was last revised on 2017. Blood 09/07/2024 9:13 AM WARDROBE ASSISTANT 09/07/2024 9:15 AM WARDROBE ASSISTANT us Nora MAY LAB BLOOD ORDERABLES Final Resul t Performing Organization Address City/[facility] Co de Phone Number MARY [address] [place] [address] * (ABNORMAL) CBC with auto differential (09/07/2024 9:13 AM WARDROBE ASSISTANT) WBC 6.1 3.8 - 9.9 K/cumm Hgb 11.6(L) 11.9 - 15.5 g/dL [facility] Hct 40.0 35.6 - 45.5 % [facility] Plt 241 150 - 400 K/cumm [facility] MPV 11.0 9.1 - 12.3 fL [facility] RBC 4.81 3.90 - 5.20 M/cumm [facility] MCV 83.2 81.3 - 96.4 fL [facility] MCH 24.1(L) 27.1 - 33.3 pg [facility] MCHC 29.0(L) 32.3 - 35.7 g/dL [facility] RDW CV 16.6(H) 11.1 - 14.9 % [facility] RDW SD 50.1(H) 35.7 - 48.1 fL [facility] NRBC abs 0.00 0.00 - 0.01 K/cumm [facility] Blood 09/07/2024 9:13 AM WARDROBE ASSISTANT 09/07/2024 9:15 AM WARDROBE ASSISTANT us Nora MAY LAB BLOOD ORDERABLES Final Resul t Performing Organization Address [facility]/ZIP Co de Phone Number MARY [address] [place] [address] * Lipase (09/07/2024 9:13 AM WARDROBE ASSISTANT) Lipase 29 10 - 99 Units/L Blood 09/07/2024 9:13 AM WARDROBE ASSISTANT 09/07/2024 9:15 AM WARDROBE ASSISTANT us Nora MAY LAB BLOOD ORDERABLES Final Resul t [facility] [address] [facility] Department [place] [address] * Comprehensive metabolic panel (09/07/2024 9:13 AM WARDROBE ASSISTANT) Sodium 138 135 - 145 mmol/L Potassium, pl 4.0 3.3 - 4.9 mmol/L [facility] Chloride 105 97 - 110 mmol/L [facility] CO2 26 22 - 32 mmol/L [facility] Anion gap 7 2 - 15 mmol/L [facility] BUN 11 6 - 25 mg/dL [facility] Creatinine 0.84 0.60 - 1.10 mg/dL [facility] Glucose 104 70 - 199 mg/dL [facility] Comment: Interpretive Data Fasting glucose >/= [...] Calcium 9.2 8.5 - 10.3 mg/dL [facility] Bilirubin, total 0.3 0.1 - 1.2 mg/dL [facility] Protein, pl 7.8 6.5 - 8.5 g/dL [facility] Albumin 3.7 3.5 - 5.0 g/dL [facility] Alk phos 97 40 - 130 Units/L [facility] ALT 21 7 - 45 Units/L [facility] AST 20 10 - 45 Units/L [facility] Blood 09/07/2024 9:13 AM WARDROBE ASSISTANT 09/07/2024 9:15 AM WARDROBE ASSISTANT Nora MAY LAB BLOOD ORDERABLES Final Resul t Performing Organization Address [facility] Co de Phone Number MARY [address] [facility] [address] * Influenza A/B, RSV, and COVID-19 PCR Nasopharyngeal (09/07/2024 8:37 AM WARDROBE ASSISTANT) Pathologist [facility] COVID-19 RNA Negative Negative Influenza A RNA Negative Negative [facility] Influenza B RNA Negative Negative [facility] RSV RNA Negative Negative [facility] Comment: Interpretive data: Testing performed by [facility]. This test is performed using the Mobile Card Xpert Xpress CoV-2/Flu/RSV plus assay. This is a multiplex, real-time reverse transcriptase PCR assay intended for the qualitative detection of nucleic acid from SARS-CoV-2, influenza A, influenza B, and respiratory syncytial virus. This assay has been cleared by the [place] Food and Drug administration. The performance characteristics have been verified by the [facility]. Results must be considered in the clinical context, and a negative result does not rule out infection. Interpretive Data last revised 2023 Nasopharyngeal 09/07/2024 8: 37 AM WARDROBE ASSISTANT 09/07/2024 8:42 AM WARDROBE ASSISTANT Narrative [facility] - 09/07/2024 9:20 AM WARDROBE ASSISTANT Is the Patient experiencing symptoms consistent with COVID?->Yes Abhay Lance MD LAB MICROBIOLOGY - GENERAL ORDER MARIA E Final Result Performing Organization Address City/[facility]/ZIP Co de Phone Number MARY [address] [facility] [employer] [place] [address] * 48 HR Holter Monitor (08/16/2024 3:55 PM WARDROBE ASSISTANT) Anatomical Region Laterality Modality Electrocardiogra phy Narrative 08/26/2024 12:20 PM WARDROBE ASSISTANT Images from the original result were not included. AMBULATORY GLEASON GEAR GENERATOR REPORT Patient Name: Tara Ta Date of [...] correlate to sinus tachycardia. Shahbaz Sanchez M.D., [facility] 08/26/24 Procedure Note Shahbaz Sanchez MD - 08/26/2024 Images from the original note were not included. AMBULATORY GLEASON GEAR GENERATOR REPORT Patient Name: Tara Ta Date of [...] correlate to sinus tachycardia. Shahbaz Sanchez M.D., [facility] 08/26/24 Mp Borja MD CV CARDIAC SERVICES PROC EDURES Final Result * ECG 12 lead (08/16/2024 3:55 PM WARDROBE ASSISTANT) Mp Borja MD ECG ORDERABLES Final Re sult * POCT lipid panel (08/16/2024 3:26 PM WARDROBE ASSISTANT) [facility] Cholesterol, POC 172 mg/dL HDL, POC 49 mg/dL Triglycerides, POC 88 mg/dL LDL Cholesterol POC 106 mg/dL Chol/HDL Ratio, POC 3.5 Non-HDL Cholesterol, POC 123 mg/dL Cholesterol Total, POC 172 mg/dL Capillary blood 08/16/2024 3 :26 PM WARDROBE ASSISTANT Mp Borja MD POINT OF CARE TEST ORDER MARIA E Final Result * (ABNORMAL) Hemoglobin A1c (09/22/2023 9:46 AM WARDROBE ASSISTANT) Pathologist [facility] Hgb A1C 6.0(H) 4.0 - 5.6 % MARY MAK Comment:Testing performed by : [facility], [address] [place] [address], [place]., [address] Estimated Average Glucose 126 mg/dL MARY MAK Comment: The ADA recommends reporting an estimated Average Glucose (eAG) with all Hemoglobin A1c results using the equation derived from a study of 507 normal and diabetic adults. Minority populations were underrepresented and children were not included. (Diabetes Care 31:9940-6623, 2008). The eAG is not equivalent to a fasting glucose. Testing performed by: [facility], [address] [place] [address]., [id number] Blood 09/22/2023 9:46 AM WARDROBE ASSISTANT 09/22/2023 12:02 PM WARDROBE ASSISTANT us Kendy Pablo MD LAB BLOOD ORDERABLES Final Res ult MARY [address] [facility] Department [place] [address] * (ABNORMAL) High Risk HPV DNA Detection with Genotyping (Molecular component) (09/22/2023 9:37 AM WARDROBE ASSISTANT) HPV HR 16 Not Detected Not Detected MARY MAK Comment:Testing performed by : [facility], [address] [place]., [address] HPV HR 18 Not Detected Not Detected MARY MAK Comment:Testing performed by : [facility], [address] [place]., [address] HPV HR Non 16/18 Detected(A) Not Detected [...] this test have been verified by the [facility] Molecular Infectious Disease laboratory. Correlate with separately reported cytology results, as applicable. Interpretive data last revised 23 Testing performed by: [facility], [address] [facility], [place]., [address] Endocervical 09/22/2023 9:37 AM WARDROBE ASSISTANT 09/23/2023 9:23 AM WARDROBE ASSISTANT Narrative MARY - 09/24/2023 12:05 AM WARDROBE ASSISTANT Clinical history and diagnosis->screening Number of vials->1 Testing type->Screening Last menstrual period (date if known)->09/09/2023 us Kendy Pablo MD LAB BODY FLUIDS AND STOOLS ORD ERABLES Final Result Performing Organization Address [facility] Co de Phone Number ASHLYCARLOS [address] [facility] [place] [address] * Hepatitis C antibody (12/13/2016 1:24 PM CDT) Hep C Ab NON-REACTI VE NON-REACTI VE [facility] HISTORICAL RESULTS SIGNAL TO CUT-OFF 0.03 <1.00 [facility] HISTORICAL RESULTS 12/13/2016 1:24 PM CDT 12/16/2016 1:15 PM CDT Narrative [facility] HISTORICAL RESULTS - 12/16/2016 1:00 PM CDT LTC ONLY: NURSE COLLECTED - NO SPECIMEN PROVIDED. PERFORMING LAB: [place], [facility] [address] [place] [address] Kp Vargas D.O., MPH us Antonia Hoff MD LAB MICROBIOLOGY - GENERAL O RDERABLES Final Result [facility] HISTORICAL RESULTS from Last 3 Months or Most Recently Relevant to Health Maintenance Insurance [facility] Care Teams Chip Bin Conveyor Tender Relationship Specialty Start Date End Date Araceli Guzmán PA PCP - General Physician Plumber Gasfitter 07/25/22
--- OUTSIDE RECORDS SUMMARY | 2024-10-11 17:01 | XMS_ITS | Clinical Summary ---
Author Organization [facility] Address [address] [place] [address] Care Team Providers Care Composition Professor Name Role Phone Rocio Rincon MD Primary Care Provider [phone] Social History Tobacco Use Types Packs/Day Years [...] patient's age to complete this topic Insurance [facility] Care Teams Composition Professor Relationship Specialty Start Date End Date Rocio Rincon MD [address] [facility] [address] [place] [address] PCP - General 09/09/16
--- OUTSIDE RECORDS SUMMARY | 2024-10-11 19:47 | XMS_ITS | Clinical Summary ---
Author Organization [facility] Address [address] [place] [address] Care Team Providers Care Car Examiner Name Role Phone Rocio Rincon MD Primary Care Provider [phone] Social History Tobacco Use Types Packs/Day Years [...] patient's age to complete this topic Insurance [facility] Care Teams Car Examiner Relationship Specialty Start Date End Date Rocio Rincon MD [address] [facility] [address] [place] [address] PCP - General 09/09/16
--- OUTSIDE RECORDS SUMMARY | 2024-10-11 19:47 | XMS_ITS | Referral Summary ---
Author Organization [facility] [address] [place] [address] 162 [address] [place] [address] Care Team Providers Care Sterilization Specialist Name Role Phone Araceli Guzmán Primary Care Provider + Encounters Date Type Department Care Team Description 09/21/2024 3:00 PM TRUCKLOAD OWNER OPERATOR Office Visit [facility] Cardiology [address] [facility] [address] [place] [address] Paradise Ludwig NP Sinus tachycardia (Primary Dx) 09/07/2024 9:34 AM TRUCKLOAD OWNER OPERATOR - 09/07/2024 11:49 AM TRUCKLOAD OWNER OPERATOR Emergency [address] [address] Gastroenteritis (Primary Dx) Discharge Disposition: Discharge to home or self care 08/16/2024 3:00 PM TRUCKLOAD OWNER OPERATOR Ancillary Procedure [facility] Medical [facility] Cardiology at [address] [place] [address] Tachycardia, unspecified 08/16/2024 3:30 PM TRUCKLOAD OWNER OPERATOR Office Visit [facility] Medical [facility] Cardiology at [address] [place] [phone] Mp Borja MD Tachycardia, unspecified from Last [...] on file Legal Sex Female 7:51 PM TRUCKLOAD OWNER OPERATOR Gender Identity Female 08/09/2024 6:46 AM TRUCKLOAD OWNER OPERATOR Sexual Orientation Straight 08/09/2024 6: 46 AM TRUCKLOAD OWNER OPERATOR Last Filed Vital Signs Vital Sign Reading Time Taken Comments Blood Pressure 128/80 09/21/2024 2:57 PM TRUCKLOAD OWNER OPERATOR Pulse 82 09/21/2024 2:57 PM TRUCKLOAD OWNER OPERATOR Temperature 36.9 C (98.4 F) 09/07/2024 8:52 AM TRUCKLOAD OWNER OPERATOR Respiratory Rate 16 09/07/2024 9:40 AM TRUCKLOAD OWNER OPERATOR Oxygen Saturation 97% 09/21/2024 2:57 PM TRUCKLOAD OWNER OPERATOR Inhaled Oxygen Concentration - - Weight 128.8 kg (284 lb) 09/21/2024 2:57 PM TRUCKLOAD OWNER OPERATOR Height 170.2 cm (5' 7 ) 09/21/2024 2:57 PM TRUCKLOAD OWNER OPERATOR Body Mass Index 44.48 09/21/2024 2:57 PM TRUCKLOAD OWNER OPERATOR Plan of Treatment Not on file Procedures Procedure Name Priority Date/Time Associated Diagnosis Comments POCT HCG, URINE STAT 09/07/2024 10:16 AM TRUCKLOAD OWNER OPERATOR URINALYSIS, MICROSCOPIC ONLY STAT 09/07/2024 10:16 AM TRUCKLOAD OWNER OPERATOR URINALYSIS AND REFLEX TO MICROSCOPIC AND CULTURE STAT 09/07/2024 10:16 AM TRUCKLOAD OWNER OPERATOR EGFR STAT 09/07/2024 9:13 AM TRUCKLOAD OWNER OPERATOR DIFFERENTIAL AUTO STAT 09/07/2024 9:1 3 AM TRUCKLOAD OWNER OPERATOR LIPASE STAT 09/07/2024 9:13 AM TRUCKLOAD OWNER OPERATOR COMPREHENSIVE METABOLIC PANEL STAT 09/07/2024 9:13 AM TRUCKLOAD OWNER OPERATOR CBC WITH AUTO DIFFERENTIAL STAT 09/07/2024 9:13 AM TRUCKLOAD OWNER OPERATOR INFLUENZA A/B, RSV, AND COVID-19 PCR STAT 09/07/2024 8:37 AM TRUCKLOAD OWNER OPERATOR HOLTER MONITOR 48 HR Routine 08/16/2024 3:55 PM TRUCKLOAD OWNER OPERATOR Tachycardia, unspecified ECG 12-LEAD Routine 08/16/2024 3:55 PM TRUCKLOAD OWNER OPERATOR Tachycardia, unspecified POCT LIPID PANEL Routine 08/16/2024 3:26 PM TRUCKLOAD OWNER OPERATOR Tachycardia, unspecified HEMOGLOBIN A1C Routine 09/22/2023 9:46 AM TRUCKLOAD OWNER OPERATOR Abnormal uterine bleeding (AUB) HIGH RISK HPV DNA DETECTION WITH GENOTYPING Routine 09/22/2023 9:37 AM TRUCKLOAD OWNER OPERATOR Well woman exam with routine gynecological exam HEPATITIS C ANTIBODY Routine 12/13/2016 1:24 PM CDT from Last 3 Months or Most Recently Relevant to Health Maintenance Results * (ABNORMAL) Urinalysis reflex to microscopic and culture Urine (09/07/2024 10:16 AM TRUCKLOAD OWNER OPERATOR) Color, ur Yellow Yellow Clarity, ur Cloudy(A) Clear [facility] Specific gravity, ur 1.039(H) 1.003 - 1.030 [facility] pH, urine 5.5 [facility] Comment: Interpretive Data U rine pH is affected by diet, medications, systemic acid-base disturbances, and renal tubular function. pH may affect urinary stone formation. For example, urine pH below 6.0 may help reduce the tendency for calcium phosphate stones and pH greater than 6.0 may reduce the tendency for uric acid stone formation. Source: [facility] Current Interpretive Data was last revised on 2017 Protein, ur ql 1+(A) Negative [facility] Glucose, ur ql Negative Negative [facility] Ketones, ur Negative Negative [facility] Bilirubin, ur Negative Negative [facility] Blood, ur 3+(A) Negative [facility] Urobilinogen, ur 2.0(A) <2.0 mg/dL [facility] Nitrite, ur Negative Negative [facility] Leukocyte esterase, ur Negative Negative [facility] UA reflex comment Reflex to microscopic UA will be performed. [facility] Urine 09/07/2024 10:1 6 AM TRUCKLOAD OWNER OPERATOR 09/07/2024 10:24 AM TRUCKLOAD OWNER OPERATOR us Nora MAY LAB MICROBIOLOGY - GENERAL ORDER MARIA E Final Result [facility] [address] [facility] Department [place] [address] * (ABNORMAL) Urinalysis, microscopic only (09/07/2024 10:16 AM TRUCKLOAD OWNER OPERATOR) WBC, ur 0-5 0 - 5 /HPF RBC, ur 3-5(A) 0 - 2 /HPF [facility] Epithelial cells, squamous, ur 11-20(A) 0 - 5 /HPF [facility] Comment:Suggestive of contam ination. Consider recollection by clean catch. Mucous, ur Present(A) [facility] Calcium oxalate crystals, ur 4+(A) [facility] Culture Reflex Comment Reflex conditions for urine culture (WBC >10) not met. [facility] Urine 09/07/2024 10:1 6 AM TRUCKLOAD OWNER OPERATOR 09/07/2024 10:24 AM TRUCKLOAD OWNER OPERATOR us Nora MAY LAB URINE ORDERABLES Final Resul t Performing Organization Address City/[facility]/ZIP Co de Phone Number MARY [address] Department [place] [address] * POCT hCG, urine (09/07/2024 10:16 AM TRUCKLOAD OWNER OPERATOR) HCG, ur, POC Negative Negative Lot Number [id number] QC Backgroud Clear Acceptable QC Control Line Acceptable Urine 09/07/2024 10:1 6 AM TRUCKLOAD OWNER OPERATOR us Nora MAY POINT OF CARE TEST ORDERABLES Fi nal Result * eGFR (09/07/2024 9:13 AM TRUCKLOAD OWNER OPERATOR) eGFR >90 >=60 mL/min/1. 73 m2 [...] last reviewed 2021. Blood 09/07/2024 9:13 AM TRUCKLOAD OWNER OPERATOR 09/07/2024 9:15 AM TRUCKLOAD OWNER OPERATOR us Nora MAY LAB BLOOD ORDERABLES Final Resul t [facility] Department [place] [address] * Differential, auto (09/07/2024 9:13 AM TRUCKLOAD OWNER OPERATOR) Neutrophil abs 3.7 1.5 - 6.5 K/cumm Imm gran abs 0.0 0.0 - 0.1 K/cumm [facility] Lymphocyte abs 1.7 0.8 - 3.3 K/cumm [facility] Monocyte abs 0.6 0.2 - 0.8 K/cumm [facility] Eosinophil abs 0.0 0.0 - 0.5 K/cumm [facility] Basophil abs 0.0 0.0 - 0.1 K/cumm [facility] Neutrophil pct 61.2 % [facility] Comment: Interpretive Data Percent cell count reference ranges are not reported, since discordance with absolute values may lead to misinterpretation of CBC data. Current Interpretive Data was last revised on 2017. Imm gran pct 0.3 % [facility] Comment: Interpretive Data Percent cell count reference ranges are not reported, since discordance with absolute values may lead to misinterpretation of CBC data. Current Interpretive Data was last revised on 2017. Lymphocyte pct 28.4 % [facility] Comment: Interpretive Data Percent cell count reference ranges are not reported, since discordance with absolute values may lead to misinterpretation of CBC data. Current Interpretive Data was last revised on 2017. Monocyte pct 9.9 % [facility] Comment: Interpretive Data Percent cell count reference ranges are not reported, since discordance with absolute values may lead to misinterpretation of CBC data. Current Interpretive Data was last revised on 2017. Eosinophil pct 0.2 % [facility] Comment: Interpretive Data Percent cell count reference ranges are not reported, since discordance with absolute values may lead to misinterpretation of CBC data. Current Interpretive Data was last revised on 2017. Basophil pct 0.0 % [facility] Comment: Interpretive Data Percent cell count reference ranges are not reported, since discordance with absolute values may lead to misinterpretation of CBC data. Current Interpretive Data was last revised on 2017. Blood 09/07/2024 9:13 AM TRUCKLOAD OWNER OPERATOR 09/07/2024 9:15 AM TRUCKLOAD OWNER OPERATOR Nora MAY LAB BLOOD ORDERABLES Final Resul t Performing Organization Address [facility] de Phone Number MARY [address] [address] * (ABNORMAL) CBC with auto differential (09/07/2024 9:13 AM TRUCKLOAD OWNER OPERATOR) Pathologist [facility] WBC 6.1 3.8 - 9.9 K/cumm Hgb 11.6(L) 11.9 - 15.5 g/dL [facility] Hct 40.0 35.6 - 45.5 % [facility] Plt 241 150 - 400 K/cumm [facility] MPV 11.0 9.1 - 12.3 fL [facility] RBC 4.81 3.90 - 5.20 M/cumm [facility] MCV 83.2 81.3 - 96.4 fL [facility] MCH 24.1(L) 27.1 - 33.3 pg [facility] MCHC 29.0(L) 32.3 - 35.7 g/dL [facility] RDW CV 16.6(H) 11.1 - 14.9 % [facility] RDW SD 50.1(H) 35.7 - 48.1 fL [facility] NRBC abs 0.00 0.00 - 0.01 K/cumm [facility] Blood 09/07/2024 9:13 AM TRUCKLOAD OWNER OPERATOR 09/07/2024 9:15 AM TRUCKLOAD OWNER OPERATOR Nora Clemons PA LAB BLOOD ORDERABLES Final Resul t Performing Organization Address City/[facility] Co de Phone Number MARY [address] [place] [address] * Lipase (09/07/2024 9:13 AM TRUCKLOAD OWNER OPERATOR) [facility] Lipase 29 10 - 99 Units/L Blood 09/07/2024 9:13 AM TRUCKLOAD OWNER OPERATOR 09/07/2024 9:15 AM TRUCKLOAD OWNER OPERATOR Nora Deonte PA LAB BLOOD ORDERABLES Final Resul t Performing Organization Address [facility]/ZIP Co de Phone Number MARY [address] [facility] [place] [address] * Comprehensive metabolic panel (09/07/2024 9:13 AM TRUCKLOAD OWNER OPERATOR) Sodium 138 135 - 145 mmol/L Potassium, pl 4.0 3.3 - 4.9 mmol/L [facility] Chloride 105 97 - 110 mmol/L [facility] CO2 26 22 - 32 mmol/L [facility] Anion gap 7 2 - 15 mmol/L [facility] BUN 11 6 - 25 mg/dL [facility] Creatinine 0.84 0.60 - 1.10 mg/dL [facility] Glucose 104 70 - 199 mg/dL [facility] Comment: Interpretive Data Fasting glucose >/= 126 [...] 2022. Calcium 9.2 8.5 - 10.3 mg/dL [facility] Bilirubin, total 0.3 0.1 - 1.2 mg/dL [facility] Protein, pl 7.8 6.5 - 8.5 g/dL [facility] Albumin 3.7 3.5 - 5.0 g/dL [facility] Alk phos 97 40 - 130 Units/L [facility] ALT 21 7 - 45 Units/L [facility] AST 20 10 - 45 Units/L [facility] Blood 09/07/2024 9:13 AM TRUCKLOAD OWNER OPERATOR 09/07/2024 9:15 AM TRUCKLOAD OWNER OPERATOR us Nora MAY LAB BLOOD ORDERABLES Final Resul t Performing Organization Address [facility]/ZIP Co de Phone Number MARY [address] [facility] [place] [address] * Influenza A/B, RSV, and COVID-19 PCR Nasopharyngeal (09/07/2024 8:37 AM TRUCKLOAD OWNER OPERATOR) COVID-19 RNA Negative Negative Influenza A RNA Negative Negative MARY Influenza B RNA Negative Negative [facility] RSV RNA Negative Negative [facility] Comment: Interpretive data: Testing performed by [facility]. This test is performed using the [employer] Xpert Xpress CoV-2/Flu/RSV plus assay. This is a multiplex, real-time reverse transcriptase PCR assay intended for the qualitative detection of nucleic acid from SARS-CoV-2, influenza A, influenza B, and respiratory syncytial virus. This assay has been cleared by the [place] Food and Drug administration. The performance characteristics have been verified by the [facility]. Results must be considered in the clinical context, and a negative result does not rule out infection. Interpretive Data last revised 2023 Nasopharyngeal 09/07/2024 8: 37 AM TRUCKLOAD OWNER OPERATOR 09/07/2024 8:42 AM TRUCKLOAD OWNER OPERATOR Narrative [facility] - 09/07/2024 9:20 AM TRUCKLOAD OWNER OPERATOR Is the Patient experiencing symptoms consistent with COVID?->Yes us Abhay Lance MD LAB MICROBIOLOGY - GENERAL ORDER MARIA E Final Result [facility]ARY [address] [facility] Department [place] [address] * 48 HR Holter Monitor (08/16/2024 3:55 PM TRUCKLOAD OWNER OPERATOR) Anatomical Region Laterality Modality Electrocardiogra phy Narrative 08/26/2024 12:20 PM TRUCKLOAD OWNER OPERATOR Images from the original result were not included. AMBULATORY ROOM SERVICE SUPERVISOR REPORT Patient Name: Tara Ta Date of [...] correlate to sinus tachycardia. Shahbaz Sanchez M.D., [facility] 08/26/24 Procedure Note Shahbaz Sanchez MD - 08/26/2024 Images from the original note were not included. AMBULATORY ROOM SERVICE SUPERVISOR REPORT Patient Name: Tara Ta Date of [...] correlate to sinus tachycardia. Shahbaz Sanchez M.D., [facility] 08/26/24 Mp Borja MD CV CARDIAC SERVICES PROC EDURES Final Result * ECG 12 lead (08/16/2024 3:55 PM TRUCKLOAD OWNER OPERATOR) Mp Borja MD ECG ORDERABLES Final Re sult * POCT lipid panel (08/16/2024 3:26 PM TRUCKLOAD OWNER OPERATOR) Cholesterol, POC 172 mg/dL HDL, POC 49 mg/dL Triglycerides, POC 88 mg/dL LDL Cholesterol POC 106 mg/dL Chol/HDL Ratio, POC 3.5 Non-HDL Cholesterol, POC 123 mg/dL Cholesterol Total, POC 172 mg/dL Capillary blood 08/16/2024 3 :26 PM TRUCKLOAD OWNER OPERATOR Mp Borja MD POINT OF CARE TEST ORDER MARIA E Final Result * (ABNORMAL) Hemoglobin A1c (09/22/2023 9:46 AM TRUCKLOAD OWNER OPERATOR) Hgb A1C 6.0(H) 4.0 - 5.6 % MARY Comment:Testing performed by : [address] [address] Estimated Average Glucose 126 mg/dL MARY Comment: The ADA recommends reporting an estimated Average Glucose (eAG) with all Hemoglobin A1c results using the equation derived from a study of 507 normal and diabetic adults. Minority populations were underrepresented and children were not included. (Diabetes Care 31:6093-0250, 2008). The eAG is not equivalent to a fasting glucose. Testing performed by: [address] [address] Blood 09/22/2023 9:46 AM TRUCKLOAD OWNER OPERATOR 09/22/2023 12:02 PM TRUCKLOAD OWNER OPERATOR us Kendy Pablo MD LAB BLOOD ORDERABLES Final Res ult MARY [facility]K [address] [facility] Department [place] [address] * (ABNORMAL) High Risk HPV DNA Detection with Genotyping (Molecular component) (09/22/2023 9:37 AM TRUCKLOAD OWNER OPERATOR) HPV HR 16 Not Detected Not Detected MAYR Comment:Testing performed by : [facility], [address] [place]., [address] HPV HR 18 Not Detected Not Detected MARY Comment:Testing performed by : [facility], [address] [facility], [address] HPV HR Non 16/18 Detected(A) Not Detected [...] this test have been verified by the [facility] Molecular Infectious Disease laboratory. Correlate with separately reported cytology results, as applicable. Interpretive data last revised 23 Testing performed by: [facility], [address] [place]., [address] Endocervical 09/22/2023 9:37 AM TRUCKLOAD OWNER OPERATOR 09/23/2023 9:23 AM TRUCKLOAD OWNER OPERATOR Narrative MARY - 09/24/2023 12:05 AM TRUCKLOAD OWNER OPERATOR Clinical history and diagnosis->screening Number of vials->1 Testing type->Screening Last menstrual period (date if known)->09/09/2023 us Kendy Pablo MD LAB BODY FLUIDS AND STOOLS ORD ERABLES Final Result Performing Organization Address [facility] Co de Phone Number MARY [address] [facility] Department [place] [address] * Hepatitis C antibody (12/13/2016 1:24 PM CDT) Hep C Ab NON-REACTI VE NON-REACTI VE [facility] HISTORICAL RESULTS SIGNAL TO CUT-OFF 0.03 <1.00 [facility] HISTORICAL RESULTS 12/13/2016 1:24 PM CDT 12/16/2016 1:15 PM CDT Narrative [facility] HISTORICAL RESULTS - 12/16/2016 1:00 PM CDT [facility] ONLY: NURSE COLLECTED - NO SPECIMEN PROVIDED. PERFORMING LAB: [place], [facility] [address], [place] [address] Kp Vargas D.O., MPH us Antonia Hoff MD LAB MICROBIOLOGY - GENERAL O RDERABLES Final Result Performing Organization Address [facility] Co de Phone Number [facility] HISTORICAL RESULTS from Last 3 Months or Most Recently Relevant to Health Maintenance Insurance [facility] Care Teams Sterilization Specialist Relationship Specialty Start Date End Date Araceli Guzmán PA PCP - General Physician Applications Systems Engineer 07/25/22
--- OUTSIDE RECORDS SUMMARY | 2024-10-11 19:47 | XMS_ITS | Clinical Summary ---
Author Organization [facility] [address] Address [address] [place] [address] Care Team Providers Care Web Analyst Name Role Phone Araceli Guzmán Primary Care [...] Department Care Team Description 09/21/2024 3:00 PM TILE DITCHER Office Visit [facility] Medical Group Cardiology [address] [facility] [address] [place] [phone] Paradise Ludwig NP Sinus tachycardia (Primary Dx) 09/07/2024 9:34 AM TILE DITCHER - 09/07/2024 11:49 AM TILE DITCHER Emergency [address] [address] Gastroenteritis (Primary Dx) Discharge Disposition: Discharge to home or self care 08/16/2024 3:30 PM TILE DITCHER Office Visit [facility] Medical Group Cardiology at [address] [place] [phone] Mp Borja MD Tachycardia, unspecified 08/16/2024 3:00 PM TILE DITCHER Ancillary Procedure [facility] Cardiology at [address] [place] [phone] Tachycardia, unspecified from Last 3 Months Surgical [...] on file Legal Sex Female 7:51 PM TILE DITCHER Gender Identity Female 08/09/2024 6:46 AM TILE DITCHER Sexual Orientation Straight 08/09/2024 6: 46 AM TILE DITCHER Obstetrics History Para Term AB IAB SAB Ectopic Multiple Livin g Live Births 3 0 3 3 0 Date Outcome GA Total Labor Labor/2nd/3rd Weight Sex Type Anes PTL Joan A1 A5 Name Clin SAB SAB SAB Last Filed Vital Signs Vital Sign Reading Time Taken Comments Blood Pressure 128/80 09/21/2024 2:57 PM TILE DITCHER Pulse 82 09/21/2024 2:57 PM TILE DITCHER Temperature 36.9 C (98.4 F) 09/07/2024 8:52 AM TILE DITCHER Respiratory Rate 16 09/07/2024 9:40 AM TILE DITCHER Oxygen Saturation 97% 09/21/2024 2:57 PM TILE DITCHER Inhaled Oxygen Concentration - - Weight 128.8 kg (284 lb) 09/21/2024 2:57 PM TILE DITCHER Height 170.2 cm (5' 7 ) 09/21/2024 2:57 PM TILE DITCHER Body Mass Index 44.48 09/21/2024 2:57 PM TILE DITCHER Plan of Treatment Health Maintenance Due Date [...] POCT HCG, URINE STAT 09/07/2024 10:16 AM TILE DITCHER URINALYSIS, MICROSCOPIC ONLY STAT 09/07/2024 10:16 AM TILE DITCHER URINALYSIS AND REFLEX TO MICROSCOPIC AND CULTURE STAT 09/07/2024 10:16 AM TILE DITCHER EGFR STAT 09/07/2024 9:13 AM TILE DITCHER DIFFERENTIAL AUTO STAT 09/07/2024 9:1 3 AM TILE DITCHER LIPASE STAT 09/07/2024 9:13 AM TILE DITCHER COMPREHENSIVE METABOLIC PANEL STAT 09/07/2024 9:13 AM TILE DITCHER CBC WITH AUTO DIFFERENTIAL STAT 09/07/2024 9:13 AM TILE DITCHER INFLUENZA A/B, RSV, AND COVID-19 PCR STAT 09/07/2024 8:37 AM TILE DITCHER HOLTER MONITOR 48 HR Routine 08/16/2024 3:55 PM TILE DITCHER Tachycardia, unspecified ECG 12-LEAD Routine 08/16/2024 3:55 PM TILE DITCHER Tachycardia, unspecified POCT LIPID PANEL Routine 08/16/2024 3:26 PM TILE DITCHER Tachycardia, unspecified HEMOGLOBIN A1C Routine 09/22/2023 9:46 AM TILE DITCHER Abnormal uterine bleeding (AUB) HIGH RISK HPV DNA DETECTION WITH GENOTYPING Routine 09/22/2023 9:37 AM TILE DITCHER Well woman exam with routine gynecological exam HEPATITIS C ANTIBODY Routine 12/13/2016 1:24 PM CDT from Last 3 Months or Most Recently Relevant to Health Maintenance Results * (ABNORMAL) Urinalysis reflex to microscopic and culture Urine (09/07/2024 10:16 AM TILE DITCHER) Color, ur Yellow Yellow Clarity, ur Cloudy(A) Clear [facility] Specific gravity, ur 1.039(H) 1.003 - 1.030 [facility] pH, urine 5.5 [facility] Comment: Interpretive Data U rine pH is affected by diet, medications, systemic acid-base disturbances, and renal tubular function. pH may affect urinary stone formation. For example, urine pH below 6.0 may help reduce the tendency for calcium phosphate stones and pH greater than 6.0 may reduce the tendency for uric acid stone formation. Source: [facility] Current Interpretive Data was last revised on 2017 Protein, ur ql 1+(A) Negative [facility] Glucose, ur ql Negative Negative [facility] Ketones, ur Negative Negative [facility] Bilirubin, ur Negative Negative [facility] Blood, ur 3+(A) Negative [facility] Urobilinogen, ur 2.0(A) <2.0 mg/dL [facility] Nitrite, ur Negative Negative [facility] Leukocyte esterase, ur Negative Negative [facility] UA reflex comment Reflex to microscopic UA will be performed. [facility] Urine 09/07/2024 10:1 6 AM TILE DITCHER 09/07/2024 10:24 AM TILE DITCHER us Nora MAY LAB MICROBIOLOGY - GENERAL ORDER MARIA E Final Result MARY [address] [facility] Department [place] [address] * (ABNORMAL) Urinalysis, microscopic only (09/07/2024 10:16 AM TILE DITCHER) WBC, ur 0-5 0 - 5 /HPF RBC, ur 3-5(A) 0 - 2 /HPF [facility] Epithelial cells, squamous, ur 11-20(A) 0 - 5 /HPF [facility] Comment:Suggestive of contam ination. Consider recollection by clean catch. Mucous, ur Present(A) [facility] Calcium oxalate crystals, ur 4+(A) [facility] Culture Reflex Comment Reflex conditions for urine culture (WBC >10) not met. [facility] Urine 09/07/2024 10:1 6 AM TILE DITCHER 09/07/2024 10:24 AM TILE DITCHER Nora MAY LAB URINE ORDERABLES Final Resul t [facility] [address] [facility] Department of Laboratories [place], [place] [id number] * POCT hCG, urine (09/07/2024 10:16 AM TILE DITCHER) HCG, ur, POC Negative Negative Lot Number [id number] QC Backgroud Clear Acceptable QC Control Line Acceptable Urine 09/07/2024 10:1 6 AM TILE DITCHER Nora MAY POINT OF CARE TEST ORDERABLES Fi nal Result * eGFR (09/07/2024 9:13 AM TILE DITCHER) eGFR >90 >=60 mL/min/1. 73 m2 Comment: [...] last reviewed 2021. Blood 09/07/2024 9:13 AM TILE DITCHER 09/07/2024 9:15 AM TILE DITCHER us Nora MAY LAB BLOOD ORDERABLES Final Resul t [facility] [address] [facility] Department [place] [address] * Differential, auto (09/07/2024 9:13 AM TILE DITCHER) Pathologist [facility] Neutrophil abs 3.7 1.5 - 6.5 K/cumm Imm gran abs 0.0 0.0 - 0.1 K/cumm [facility] Lymphocyte abs 1.7 0.8 - 3.3 K/cumm [facility] Monocyte abs 0.6 0.2 - 0.8 K/cumm [facility] Eosinophil abs 0.0 0.0 - 0.5 K/cumm [facility] Basophil abs 0.0 0.0 - 0.1 K/cumm [facility] Neutrophil pct 61.2 % [facility] Comment: Interpretive Data Percent cell count reference ranges are not reported, since discordance with absolute values may lead to misinterpretation of CBC data. Current Interpretive Data was last revised on 2017. Imm gran pct 0.3 % [facility] Comment: Interpretive Data Percent cell count reference ranges are not reported, since discordance with absolute values may lead to misinterpretation of CBC data. Current Interpretive Data was last revised on 2017. Lymphocyte pct 28.4 % [facility] Comment: Interpretive Data Percent cell count reference ranges are not reported, since discordance with absolute values may lead to misinterpretation of CBC data. Current Interpretive Data was last revised on 2017. Monocyte pct 9.9 % [facility] Comment: Interpretive Data Percent cell count reference ranges are not reported, since discordance with absolute values may lead to misinterpretation of CBC data. Current Interpretive Data was last revised on 2017. Eosinophil pct 0.2 % [facility] Comment: Interpretive Data Percent cell count reference ranges are not reported, since discordance with absolute values may lead to misinterpretation of CBC data. Current Interpretive Data was last revised on 2017. Basophil pct 0.0 % [facility] Comment: Interpretive Data Percent cell count reference ranges are not reported, since discordance with absolute values may lead to misinterpretation of CBC data. Current Interpretive Data was last revised on 2017. Blood 09/07/2024 9:13 AM TILE DITCHER 09/07/2024 9:15 AM TILE DITCHER us Nora MAY LAB BLOOD ORDERABLES Final Resul t Performing Organization Address City/[facility] Co de Phone Number MARY [address] [place] [address] * (ABNORMAL) CBC with auto differential (09/07/2024 9:13 AM TILE DITCHER) WBC 6.1 3.8 - 9.9 K/cumm Hgb 11.6(L) 11.9 - 15.5 g/dL [facility] Hct 40.0 35.6 - 45.5 % [facility] Plt 241 150 - 400 K/cumm [facility] MPV 11.0 9.1 - 12.3 fL [facility] RBC 4.81 3.90 - 5.20 M/cumm [facility] MCV 83.2 81.3 - 96.4 fL [facility] MCH 24.1(L) 27.1 - 33.3 pg [facility] MCHC 29.0(L) 32.3 - 35.7 g/dL [facility] RDW CV 16.6(H) 11.1 - 14.9 % [facility] RDW SD 50.1(H) 35.7 - 48.1 fL [facility] NRBC abs 0.00 0.00 - 0.01 K/cumm [facility] Blood 09/07/2024 9:13 AM TILE DITCHER 09/07/2024 9:15 AM TILE DITCHER us Nora MAY LAB BLOOD ORDERABLES Final Resul t Performing Organization Address [facility]/ZIP Co de Phone Number MARY [address] [place] [address] * Lipase (09/07/2024 9:13 AM TILE DITCHER) Lipase 29 10 - 99 Units/L Blood 09/07/2024 9:13 AM TILE DITCHER 09/07/2024 9:15 AM TILE DITCHER us Nora MAY LAB BLOOD ORDERABLES Final Resul t [facility] [address] [facility] Department [place] [address] * Comprehensive metabolic panel (09/07/2024 9:13 AM TILE DITCHER) Sodium 138 135 - 145 mmol/L Potassium, pl 4.0 3.3 - 4.9 mmol/L [facility] Chloride 105 97 - 110 mmol/L [facility] CO2 26 22 - 32 mmol/L [facility] Anion gap 7 2 - 15 mmol/L [facility] BUN 11 6 - 25 mg/dL [facility] Creatinine 0.84 0.60 - 1.10 mg/dL [facility] Glucose 104 70 - 199 mg/dL [facility] Comment: Interpretive Data Fasting glucose >/= [...] 2022. Calcium 9.2 8.5 - 10.3 mg/dL [facility] Bilirubin, total 0.3 0.1 - 1.2 mg/dL [facility] Protein, pl 7.8 6.5 - 8.5 g/dL [facility] Albumin 3.7 3.5 - 5.0 g/dL [facility] Alk phos 97 40 - 130 Units/L [facility] ALT 21 7 - 45 Units/L [facility] AST 20 10 - 45 Units/L [facility] Blood 09/07/2024 9:13 AM TILE DITCHER 09/07/2024 9:15 AM TILE DITCHER Nroa MAY LAB BLOOD ORDERABLES Final Resul t Performing Organization Address [facility] Co de Phone Number MARY [address] [facility] [place] [address] * Influenza A/B, RSV, and COVID-19 PCR Nasopharyngeal (09/07/2024 8:37 AM TILE DITCHER) Pathologist [facility] COVID-19 RNA Negative Negative Influenza A RNA Negative Negative [facility] Influenza B RNA Negative Negative [facility] RSV RNA Negative Negative [facility] Comment: Interpretive data: Testing performed by [facility]. This test is performed using the [employer] Xpert Xpress CoV-2/Flu/RSV plus assay. This is a multiplex, real-time reverse transcriptase PCR assay intended for the qualitative detection of nucleic acid from SARS-CoV-2, influenza A, influenza B, and respiratory syncytial virus. This assay has been cleared by the [place] Food and Drug administration. The performance characteristics have been verified by the [facility]. Results must be considered in the clinical context, and a negative result does not rule out infection. Interpretive Data last revised 2023 Nasopharyngeal 09/07/2024 8: 37 AM TILE DITCHER 09/07/2024 8:42 AM TILE DITCHER Narrative [facility] - 09/07/2024 9:20 AM TILE DITCHER Is the Patient experiencing symptoms consistent with COVID?->Yes Abhay Lance MD LAB MICROBIOLOGY - GENERAL ORDER MARIA E Final Result Performing Organization Address City/[facility]/ZIP Co de Phone Number MARY [address] [facility] [place] [address] * 48 HR Holter Monitor (08/16/2024 3:55 PM TILE DITCHER) Anatomical Region Laterality Modality Electrocardiogra phy Narrative 08/26/2024 12:20 PM TILE DITCHER Images from the original result were not included. AMBULATORY ENROLLMENT COUNSELOR REPORT Patient Name: Tara Ta Date of [...] correlate to sinus tachycardia. Shahbaz Sanchez M.D., [facility] 08/26/24 Procedure Note Shahbaz Sanchez MD - 08/26/2024 Images from the original note were not included. AMBULATORY ENROLLMENT COUNSELOR REPORT Patient Name: Tara Ta Date of [...] correlate to sinus tachycardia. Shahbaz Sanchez M.D., [facility] 08/26/24 Mp Borja MD CV CARDIAC SERVICES PROC EDURES Final Result * ECG 12 lead (08/16/2024 3:55 PM TILE DITCHER) Mp Borja MD ECG ORDERABLES Final Re sult * POCT lipid panel (08/16/2024 3:26 PM TILE DITCHER) [facility] Cholesterol, POC 172 mg/dL HDL, POC 49 mg/dL Triglycerides, POC 88 mg/dL LDL Cholesterol POC 106 mg/dL Chol/HDL Ratio, POC 3.5 Non-HDL Cholesterol, POC 123 mg/dL Cholesterol Total, POC 172 mg/dL Capillary blood 08/16/2024 3 :26 PM TILE DITCHER Mp Borja MD POINT OF CARE TEST ORDER MARIA E Final Result * (ABNORMAL) Hemoglobin A1c (09/22/2023 9:46 AM TILE DITCHER) Pathologist [facility] Hgb A1C 6.0(H) 4.0 - 5.6 % MARY MAK Comment:Testing performed by : [facility], [address] [place] [address], [place]., [address] Estimated Average Glucose 126 mg/dL MARY MAK Comment: The ADA recommends reporting an estimated Average Glucose (eAG) with all Hemoglobin A1c results using the equation derived from a study of 507 normal and diabetic adults. Minority populations were underrepresented and children were not included. (Diabetes Care 31:4160-3421, 2008). The eAG is not equivalent to a fasting glucose. Testing performed by: [facility], [address] [place] [address]., [id number] Blood 09/22/2023 9:46 AM TILE DITCHER 09/22/2023 12:02 PM TILE DITCHER us Kendy Pablo MD LAB BLOOD ORDERABLES Final Res ult MARY [address] [facility] [place] [address] * (ABNORMAL) High Risk HPV DNA Detection with Genotyping (Molecular component) (09/22/2023 9:37 AM TILE DITCHER) HPV HR 16 Not Detected Not Detected MARY MAK Comment:Testing performed by : [facility], [address] [place]., [address] HPV HR 18 Not Detected Not Detected MARY MAK Comment:Testing performed by : [facility], [address] [place]., [address] HPV HR Non 16/18 Detected(A) Not Detected [...] this test have been verified by the [facility] Molecular Infectious Disease laboratory. Correlate with separately reported cytology results, as applicable. Interpretive data last revised 23 Testing performed by: [facility], [address] [facility], [place]., [address] Endocervical 09/22/2023 9:37 AM TILE DITCHER 09/23/2023 9:23 AM TILE DITCHER Narrative MARY - 09/24/2023 12:05 AM TILE DITCHER Clinical history and diagnosis->screening Number of vials->1 Testing type->Screening Last menstrual period (date if known)->09/09/2023 us Kendy Pablo MD LAB BODY FLUIDS AND STOOLS ORD ERABLES Final Result Performing Organization Address [facility] Co de Phone Number ASHLYCARLOS [address] [facility] [place] [address] * Hepatitis C antibody (12/13/2016 1:24 PM CDT) Hep C Ab NON-REACTI VE NON-REACTI VE [facility] HISTORICAL RESULTS SIGNAL TO CUT-OFF 0.03 <1.00 [facility] HISTORICAL RESULTS 12/13/2016 1:24 PM CDT 12/16/2016 1:15 PM CDT Narrative [facility] HISTORICAL RESULTS - 12/16/2016 1:00 PM CDT LTC ONLY: NURSE COLLECTED - NO SPECIMEN PROVIDED. PERFORMING LAB: [place], [facility] [address] [place] [address] Kp Vargas D.O., MPH us Antonia Hoff MD LAB MICROBIOLOGY - GENERAL O RDERABLES Final Result [facility] HISTORICAL RESULTS from Last 3 Months or Most Recently Relevant to Health Maintenance Insurance [facility] Care Teams Web Analyst Relationship Specialty Start Date End Date Araceli Guzmán PA PCP - General Physician Marble Mason 07/25/22
== END 2024-10-11 18:24 | disposition left against medical advice (07) ==
LOC: ANHED 19:45
PROVIDERS: Emergency Provider Physician Assistant; PCP Physician Assistant
DX: N83.201 Unspecified ovarian cyst, right side (principal); E11.9 Type 2 diabetes mellitus without complications; J45.909 Unspecified asthma, uncomplicated; D64.9 Anemia, unspecified; Z79.85 Long-term (current) use of injectable non-insulin antidiabetic drugs
CPT/HCPCS: 36415; 76830; 76856; 80053; 83690; 85025; 99281; 99284

== ENCOUNTER 2024-10-15 09:31 | Outpatient (CLI) | payer OTHER, SELFPAY | END 2024-10-15 09:32 | disposition home or self-care (01) | PROVIDERS: PCP Physician Assistant; Visit Provider Obstetrics & Gynecology | DX: N83.291 Other ovarian cyst, right side (principal); N88.8 Other specified noninflammatory disorders of cervix uteri | CPT/HCPCS: 76830; 76856 ==

== ENCOUNTER 2024-11-23 09:44 | Outpatient (CLI) | payer OTHER, SELFPAY ==
--- OUTSIDE RECORDS SUMMARY | 2024-11-23 10:41 | XMS_ITS | Clinical Summary ---
Author Organization [facility] Address [facility] [place] [address] Care Team Providers Care Snuff Drier Name Role Phone Rocio Rincon MD Primary Care Provider [phone] Social History Tobacco Use Types Packs/Day Years Used Date Smoking Tobacco: Never Assessed Comments Unknown Sex and Gender Information Value Date Recorded Sex Assigned at Female 10/12/2024 7:31 AM GLASS BEAD MAKER Legal Sex Female 8:29 PM CDT Gender Identity Female 10/12/2024 7:31 AM GLASS BEAD MAKER Sexual Orientation Straight 10/12/2024 7: 31 AM GLASS BEAD MAKER Plan of Treatment Health Maintenance Due Date [...] Cancer Screening with HPV 2022 COVID-19 Vaccine (2023-2 5 season) 2024 HPV Vaccines Aged Out No longer [...] patient's age to complete this topic Insurance [facility] Care Teams Snuff Drier Relationship Specialty Start Date End Date Rocio Rincon MD [address] [facility] [address] [place] [address] PCP - General 09/09/16
--- OUTSIDE RECORDS SUMMARY | 2024-11-23 10:41 | XMS_ITS | Clinical Summary ---
Author Organization [facility] [address] Address [address] [place] [address] Care Team Providers Care Truss Maker Name Role Phone Araceli Guzmán Primary Care [...] Encounters Date Type Department Care Team Description 10/12/2024 Telephone [facility] Obstetrical Gynecology [address] [place] [address] Kendy Pablo MD 09/21/2024 3:00 PM PACKAGE SORTER Office Visit [facility] Cardiology [address] [place] [id number] Paradise Ludwig NP Sinus tachycardia (Primary Dx) 09/07/2024 9:34 AM PACKAGE SORTER - 09/07/2024 11:49 AM PACKAGE SORTER Emergency [facility] [address] [place] [address] Gastroenteritis (Primary Dx) Discharge Disposition: Discharge to home or self care from Last 3 Months Surgical History Surgery [...] on file Legal Sex Female 7:51 PM PACKAGE SORTER Gender Identity Female 08/09/2024 6:46 AM PACKAGE SORTER Sexual Orientation Straight 08/09/2024 6: 46 AM PACKAGE SORTER Obstetrics History Para Term AB IAB SAB Ectopic Multiple Livin g Live Births 3 0 3 3 0 Date Outcome GA Total Labor Labor/2nd/3rd Weight Sex Type Anes PTL Joan A1 A5 Name Clin SAB SAB SAB Last Filed Vital Signs Vital Sign Reading Time Taken Comments Blood Pressure 128/80 09/21/2024 2:57 PM PACKAGE SORTER Pulse 82 09/21/2024 2:57 PM PACKAGE SORTER Temperature 36.9 C (98.4 F) 09/07/2024 8:52 AM PACKAGE SORTER Respiratory Rate 16 09/07/2024 9:40 AM PACKAGE SORTER Oxygen Saturation 97% 09/21/2024 2:57 PM PACKAGE SORTER Inhaled Oxygen Concentration - - Weight 128.8 kg (284 lb) 09/21/2024 2:57 PM PACKAGE SORTER Height 170.2 cm (5' 7 ) 09/21/2024 2:57 PM PACKAGE SORTER Body Mass Index 44.48 09/21/2024 2:57 PM PACKAGE SORTER Plan of Treatment Health Maintenance Due Date Last Done Comments Albumin Creatinine Ratio, Urine 1992 Depression Screening 1992 Dilated Eye Exam 1992 Foot Exam 1992 Varicella Vaccines (2 of 2 - 13+ 2-dose series) 04/29/2014 04/01/2014 Pneumococcal vaccine <65 (2 of 2 - PCV) 03/21/2023 03/21/2022 Hemoglobin A1C 03/22/2024 09/22/2023, 02/0 01/2023, 02/24/2017 Covid-19 Vaccine ( season) 2024 03/26/2021, 03/04/2021 Cervical Cancer Screening 09/22/20242023, 09/22/2023, 07/25/2022, Additional history exists Regular Well Visit/Exam 18-64 09/22/2024 09/22/2023, 07/25/2022 Influenza Vaccine (Season Ended) 2025 04/16/2021, 05/11/2018, 2015 Lipid Panel 08/16/2025 08/16/2024 eGFR 09/07/2025 09/07/2024, 05/18, 09/23/2022 DTaP/Tdap/Td Vaccine (8 - Td or Tdap) 12/20/2027 12/19/2017, 01/03/2007, 08/26/1996, Additional history exists Hepatitis B Screening Completed 02/06/1994 , 08/24/1993, 02/07/1993, Additional history exists Hepatitis C Screening Completed 12/13/2016 HPV Vaccines Aged Out No longer eligi ble based on patient's age to complete this topic Procedures Procedure Name Priority Date/Time Associated Diagnosis Comments POCT HCG, URINE STAT 09/07/2024 10:16 AM PACKAGE SORTER URINALYSIS, MICROSCOPIC ONLY STAT 09/07/2024 10:16 AM PACKAGE SORTER URINALYSIS AND REFLEX TO MICROSCOPIC AND CULTURE STAT 09/07/2024 10:16 AM PACKAGE SORTER EGFR STAT 09/07/2024 9:13 AM PACKAGE SORTER DIFFERENTIAL AUTO STAT 09/07/2024 9:1 3 AM PACKAGE SORTER LIPASE STAT 09/07/2024 9:13 AM PACKAGE SORTER COMPREHENSIVE METABOLIC PANEL STAT 09/07/2024 9:13 AM PACKAGE SORTER CBC WITH AUTO DIFFERENTIAL STAT 09/07/2024 9:13 AM PACKAGE SORTER INFLUENZA A/B, RSV, AND COVID-19 PCR STAT 09/07/2024 8:37 AM PACKAGE SORTER POCT LIPID PANEL Routine 08/16/2024 3:26 PM PACKAGE SORTER Tachycardia, unspecified HEMOGLOBIN A1C Routine 09/22/2023 9:46 AM PACKAGE SORTER Abnormal uterine bleeding (AUB) HIGH RISK HPV DNA DETECTION WITH GENOTYPING Routine 09/22/2023 9:37 AM PACKAGE SORTER Well woman exam with routine gynecological exam HEPATITIS C ANTIBODY Routine 12/13/2016 1:24 PM CDT from Last 3 Months or Most Recently Relevant to Health Maintenance Results * (ABNORMAL) Urinalysis reflex to microscopic and culture Urine (09/07/2024 10:16 AM PACKAGE SORTER) Color, ur Yellow Yellow Clarity, ur Cloudy(A) Clear [facility] Specific gravity, ur 1.039(H) 1.003 - 1.030 [facility] pH, urine 5.5 [facility] Comment: Interpretive Data U rine pH is affected by diet, medications, systemic acid-base disturbances, and renal tubular function. pH may affect urinary stone formation. For example, urine pH below 6.0 may help reduce the tendency for calcium phosphate stones and pH greater than 6.0 may reduce the tendency for uric acid stone formation. Source: [facility] Current Interpretive Data was last revised on 2017 Protein, ur ql 1+(A) Negative [facility] Glucose, ur ql Negative Negative [facility] Ketones, ur Negative Negative [facility] Bilirubin, ur Negative Negative [facility] Blood, ur 3+(A) Negative [facility] Urobilinogen, ur 2.0(A) <2.0 mg/dL [facility] Nitrite, ur Negative Negative [facility] Leukocyte esterase, ur Negative Negative [facility] UA reflex comment Reflex to microscopic UA will be performed. [facility] Urine 09/07/2024 10:1 6 AM PACKAGE SORTER 09/07/2024 10:24 AM PACKAGE SORTER Nora MAY LAB MICROBIOLOGY - GENERAL ORDER MARIA E Final Result [place] [address] [place] [address] * (ABNORMAL) Urinalysis, microscopic only (09/07/2024 10:16 AM PACKAGE SORTER) WBC, ur 0-5 0 - 5 /HPF RBC, ur 3-5(A) 0 - 2 /HPF [facility] Epithelial cells, squamous, ur 11-20(A) 0 - 5 /HPF [facility] Comment:Suggestive of contam ination. Consider recollection by clean catch. Mucous, ur Present(A) [facility] Calcium oxalate crystals, ur 4+(A) [facility] Culture Reflex Comment Reflex conditions for urine culture (WBC >10) not met. [facility] Urine 09/07/2024 10:1 6 AM PACKAGE SORTER 09/07/2024 10:24 AM PACKAGE SORTER us Nora Deonte PA LAB URINE ORDERABLES Final Resul t Performing Organization Address City/[facility]/ZIP Co de Phone Number MARY [facility] [address] [place] [address] * POCT hCG, urine (09/07/2024 10:16 AM PACKAGE SORTER) HCG, ur, POC Negative Negative Lot Number [id number] QC Backgroud Clear Acceptable QC Control Line Acceptable Urine 09/07/2024 10:1 6 AM PACKAGE SORTER us [employer] PA POINT OF CARE TEST ORDERABLES Fi nal Result * eGFR (09/07/2024 9:13 AM PACKAGE SORTER) eGFR >90 >=60 mL/min/1. 73 m2 Comment: [...] last reviewed 2021. Blood 09/07/2024 9:13 AM PACKAGE SORTER 09/07/2024 9:15 AM PACKAGE SORTER us Nora Deonte PA LAB BLOOD ORDERABLES Final Resul t MARY [address] [place] [address] * Differential, auto (09/07/2024 9:13 AM PACKAGE SORTER) Neutrophil abs 3.7 1.5 - 6.5 K/cumm Imm gran abs 0.0 0.0 - 0.1 K/cumm [facility] Lymphocyte abs 1.7 0.8 - 3.3 K/cumm [facility] Monocyte abs 0.6 0.2 - 0.8 K/cumm [facility] Eosinophil abs 0.0 0.0 - 0.5 K/cumm [facility] Basophil abs 0.0 0.0 - 0.1 K/cumm [facility] Neutrophil pct 61.2 % [facility] Comment: Interpretive Data Percent cell count reference ranges are not reported, since discordance with absolute values may lead to misinterpretation of CBC data. Current Interpretive Data was last revised on 2017. Imm gran pct 0.3 % [facility] Comment: Interpretive Data Percent cell count reference ranges are not reported, since discordance with absolute values may lead to misinterpretation of CBC data. Current Interpretive Data was last revised on 2017. Lymphocyte pct 28.4 % [facility] Comment: Interpretive Data Percent cell count reference ranges are not reported, since discordance with absolute values may lead to misinterpretation of CBC data. Current Interpretive Data was last revised on 2017. Monocyte pct 9.9 % [facility] Comment: Interpretive Data Percent cell count reference ranges are not reported, since discordance with absolute values may lead to misinterpretation of CBC data. Current Interpretive Data was last revised on 2017. Eosinophil pct 0.2 % [facility] Comment: Interpretive Data Percent cell count reference ranges are not reported, since discordance with absolute values may lead to misinterpretation of CBC data. Current Interpretive Data was last revised on 2017. Basophil pct 0.0 % [facility] Comment: Interpretive Data Percent cell count reference ranges are not reported, since discordance with absolute values may lead to misinterpretation of CBC data. Current Interpretive Data was last revised on 2017. Blood 09/07/2024 9:13 AM PACKAGE SORTER 09/07/2024 9:15 AM PACKAGE SORTER us Nora MAY LAB BLOOD ORDERABLES Final Resul t Performing Organization Address [facility] Co de Phone Number [id number] [address] * (ABNORMAL) CBC with auto differential (09/07/2024 9:13 AM PACKAGE SORTER) WBC 6.1 3.8 - 9.9 K/cumm Hgb 11.6(L) 11.9 - 15.5 g/dL [facility] Hct 40.0 35.6 - 45.5 % [facility] Plt 241 150 - 400 K/cumm [facility] MPV 11.0 9.1 - 12.3 fL [facility] RBC 4.81 3.90 - 5.20 M/cumm [facility] MCV 83.2 81.3 - 96.4 fL [facility] MCH 24.1(L) 27.1 - 33.3 pg [facility] MCHC 29.0(L) 32.3 - 35.7 g/dL [facility] RDW CV 16.6(H) 11.1 - 14.9 % [facility] RDW SD 50.1(H) 35.7 - 48.1 fL [facility] NRBC abs 0.00 0.00 - 0.01 K/cumm [facility] Blood 09/07/2024 9:13 AM PACKAGE SORTER 09/07/2024 9:15 AM PACKAGE SORTER us Nora MAY LAB BLOOD ORDERABLES Final Resul t Performing Organization Address [facility] Co de Phone Number ASHLY[address] [place] [address] * Lipase (09/07/2024 9:13 AM PACKAGE SORTER) Pathologist [facility] Lipase 29 10 - 99 Units/L Blood 09/07/2024 9:13 AM PACKAGE SORTER 09/07/2024 9:15 AM PACKAGE SORTER Nora MAY LAB BLOOD ORDERABLES Final Resul t Performing Organization Address City/[facility] Co de Phone Number MARY [address] [place] [address] * Comprehensive metabolic panel (09/07/2024 9:13 AM PACKAGE SORTER) Sodium 138 135 - 145 mmol/L Potassium, pl 4.0 3.3 - 4.9 mmol/L [facility] Chloride 105 97 - 110 mmol/L [facility] CO2 26 22 - 32 mmol/L [facility] Anion gap 7 2 - 15 mmol/L [facility] BUN 11 6 - 25 mg/dL [facility] Creatinine 0.84 0.60 - 1.10 mg/dL [facility] Glucose 104 70 - 199 mg/dL [facility] Comment: Interpretive Data Fasting glucose [...] 2022. Calcium 9.2 8.5 - 10.3 mg/dL [facility] Bilirubin, total 0.3 0.1 - 1.2 mg/dL [facility] Protein, pl 7.8 6.5 - 8.5 g/dL [facility] Albumin 3.7 3.5 - 5.0 g/dL [facility] Alk phos 97 40 - 130 Units/L [facility] ALT 21 7 - 45 Units/L [facility] AST 20 10 - 45 Units/L [facility] Blood 09/07/2024 9:13 AM PACKAGE SORTER 09/07/2024 9:15 AM PACKAGE SORTER us Nora MAY LAB BLOOD ORDERABLES Final Resul t MARY [facility] [address] [place] [address] * Influenza A/B, RSV, and COVID-19 PCR Nasopharyngeal (09/07/2024 8:37 AM PACKAGE SORTER) Pathologist [facility] COVID-19 RNA Negative Negative Influenza A RNA Negative Negative [facility] Influenza B RNA Negative Negative [facility] RSV RNA Negative Negative [facility] Comment: Interpretive data: Testing performed by [facility]. This test is performed using the [employer] Xpert Xpress CoV-2/Flu/RSV plus assay. This is a multiplex, real-time reverse transcriptase PCR assay intended for the qualitative detection of nucleic acid from SARS-CoV-2, influenza A, influenza B, and respiratory syncytial virus. This assay has been cleared by the [place] Food and Drug administration. The performance characteristics have been verified by the [facility]. Results must be considered in the clinical context, and a negative result does not rule out infection. Interpretive Data last revised 2023 Nasopharyngeal 09/07/2024 8: 37 AM PACKAGE SORTER 09/07/2024 8:42 AM PACKAGE SORTER Narrative [facility] - 09/07/2024 9:20 AM PACKAGE SORTER Is the Patient experiencing symptoms consistent with COVID?->Yes us Abhay Lance MD LAB MICROBIOLOGY - GENERAL ORDER MARIA E Final Result [facility] [address] Department of Laboratories [place], [place] [id number] * POCT lipid panel (08/16/2024 3:26 PM PACKAGE SORTER) Pathologist [facility] Cholesterol, POC 172 mg/dL HDL, POC 49 mg/dL Triglycerides, POC 88 mg/dL LDL Cholesterol POC 106 mg/dL Chol/HDL Ratio, POC 3.5 Non-HDL Cholesterol, POC 123 mg/dL Cholesterol Total, POC 172 mg/dL Capillary blood 08/16/2024 3 :26 PM PACKAGE SORTER us Mp Borja MD POINT OF CARE TEST ORDER MARIA E Final Result * (ABNORMAL) Hemoglobin A1c (09/22/2023 9:46 AM PACKAGE SORTER) [facility] Hgb A1C 6.0(H) 4.0 - 5.6 % [facility]ARY MAK Comment:Testing performed by : [facility], [address] [place] [address]., [address] Estimated Average Glucose 126 mg/dL [facility]K Comment: The ADA recommends reporting an estimated Average Glucose (eAG) with all Hemoglobin A1c results using the equation derived from a study of 507 normal and diabetic adults. Minority populations were underrepresented and children were not included. (Diabetes Care 31:9950-3835, 2008). The eAG is not equivalent to a fasting glucose. Testing performed by: [facility], [address] [place] [address]., [address] Blood 09/22/2023 9:46 AM PACKAGE SORTER 09/22/2023 12:02 PM PACKAGE SORTER us Kendy Pablo MD LAB BLOOD ORDERABLES Final Res ult MARY [address] [place] [address] * (ABNORMAL) High Risk HPV DNA Detection with Genotyping (Molecular component) (09/22/2023 9:37 AM PACKAGE SORTER) HPV HR 16 Not Detected Not Detected MARY Comment:Testing performed by : [facility], [address] [place]., [address] HPV HR 18 Not Detected Not Detected MARY Comment:Testing performed by : [facility], [address] [place]., [address] HPV HR Non 16/18 Detected(A) Not Detected [...] this test have been verified by the [facility] Molecular Infectious Disease laboratory. Correlate with separately reported cytology results, as applicable. Interpretive data last revised 23 Testing performed by: [facility], [address] [facility], [place]., [address] Endocervical 09/22/2023 9:37 AM PACKAGE SORTER 09/23/2023 9:23 AM PACKAGE SORTER Narrative MARY - 09/24/2023 12:05 AM PACKAGE SORTER Clinical history and diagnosis->screening Number of vials->1 Testing type->Screening Last menstrual period (date if known)->09/09/2023 us Kendy Pablo MD LAB BODY FLUIDS AND STOOLS ORD ERABLES Final Result Performing Organization Address [facility] Co de Phone Number [facility] [address] [place] [address] * Hepatitis C antibody (12/13/2016 1:24 PM [...] NO SPECIMEN PROVIDED. 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
--- OUTSIDE RECORDS SUMMARY | 2024-11-23 10:41 | XMS_ITS | Referral Summary ---
Author Organization [facility] [address] Address [address] [place] [address] Care Team Providers Care Sports Development Officer Name Role Phone Araceli Guzmán Primary Care Provider + Encounters Date Type Department Care Team Description 10/12/2024 Telephone [facility] Obstetrical Gynecology [address] [place] [address] Kendy Pablo MD 09/21/2024 3:00 PM NUMBERER AND WIRER Office Visit [facility] Cardiology [address] [place] [address] Paradise Ludwig NP Sinus tachycardia (Primary Dx) 09/07/2024 9:34 AM NUMBERER AND WIRER - 09/07/2024 11:49 AM NUMBERER AND WIRER Emergency [facility] [address] [place] [address] Gastroenteritis (Primary Dx) Discharge Disposition: Discharge to home or self care from Last 3 Months Allergies Active Allergy [...] Active Trulicity 3 mg/0.5 mL pen injector Active ketorolac (TORADOL) 10 mg tablet Take [...] on file Legal Sex Female 7:51 PM NUMBERER AND WIRER Gender Identity Female 08/09/2024 6:46 AM NUMBERER AND WIRER Sexual Orientation Straight 08/09/2024 6: 46 AM NUMBERER AND WIRER Last Filed Vital Signs Vital Sign Reading Time Taken Comments Blood Pressure 128/80 09/21/2024 2:57 PM NUMBERER AND WIRER Pulse 82 09/21/2024 2:57 PM NUMBERER AND WIRER Temperature 36.9 C (98.4 F) 09/07/2024 8:52 AM NUMBERER AND WIRER Respiratory Rate 16 09/07/2024 9:40 AM NUMBERER AND WIRER Oxygen Saturation 97% 09/21/2024 2:57 PM NUMBERER AND WIRER Inhaled Oxygen Concentration - - Weight 128.8 kg (284 lb) 09/21/2024 2:57 PM NUMBERER AND WIRER Height 170.2 cm (5' 7 ) 09/21/2024 2:57 PM NUMBERER AND WIRER Body Mass Index 44.48 09/21/2024 2:57 PM NUMBERER AND WIRER Plan of Treatment Not on file Procedures Procedure Name Priority Date/Time Associated Diagnosis Comments POCT HCG, URINE STAT 09/07/2024 10:16 AM NUMBERER AND WIRER URINALYSIS, MICROSCOPIC ONLY STAT 09/07/2024 10:16 AM NUMBERER AND WIRER URINALYSIS AND REFLEX TO MICROSCOPIC AND CULTURE STAT 09/07/2024 10:16 AM NUMBERER AND WIRER EGFR STAT 09/07/2024 9:13 AM NUMBERER AND WIRER DIFFERENTIAL AUTO STAT 09/07/2024 9:1 3 AM NUMBERER AND WIRER LIPASE STAT 09/07/2024 9:13 AM NUMBERER AND WIRER COMPREHENSIVE METABOLIC PANEL STAT 09/07/2024 9:13 AM NUMBERER AND WIRER CBC WITH AUTO DIFFERENTIAL STAT 09/07/2024 9:13 AM NUMBERER AND WIRER INFLUENZA A/B, RSV, AND COVID-19 PCR STAT 09/07/2024 8:37 AM NUMBERER AND WIRER POCT LIPID PANEL Routine 08/16/2024 3:26 PM NUMBERER AND WIRER Tachycardia, unspecified HEMOGLOBIN A1C Routine 09/22/2023 9:46 AM NUMBERER AND WIRER Abnormal uterine bleeding (AUB) HIGH RISK HPV DNA DETECTION WITH GENOTYPING Routine 09/22/2023 9:37 AM NUMBERER AND WIRER Well woman exam with routine gynecological exam HEPATITIS C ANTIBODY Routine 12/13/2016 1:24 PM CDT from Last 3 Months or Most Recently Relevant to Health Maintenance Results * (ABNORMAL) Urinalysis reflex to microscopic and culture Urine (09/07/2024 10:16 AM NUMBERER AND WIRER) Color, ur Yellow Yellow Clarity, ur Cloudy(A) Clear MARY Specific gravity, ur 1.039(H) 1.003 - 1.030 MARY pH, urine 5.5 MARY Comment: Interpretive Data U rine pH is affected by diet, medications, systemic acid-base disturbances, and renal tubular function. pH may affect urinary stone formation. For example, urine pH below 6.0 may help reduce the tendency for calcium phosphate stones and pH greater than 6.0 may reduce the tendency for uric acid stone formation. Source: [facility] Current Interpretive Data was last revised on 2017 Protein, ur ql 1+(A) Negative [facility] Glucose, ur ql Negative Negative [facility] Ketones, ur Negative Negative [facility] Bilirubin, ur Negative Negative [facility] Blood, ur 3+(A) Negative [facility] Urobilinogen, ur 2.0(A) <2.0 mg/dL [facility] Nitrite, ur Negative Negative [facility] Leukocyte esterase, ur Negative Negative [facility] UA reflex comment Reflex to microscopic UA will be performed. [facility] Urine 09/07/2024 10:1 6 AM NUMBERER AND WIRER 09/07/2024 10:24 AM NUMBERER AND WIRER Nora MAY LAB MICROBIOLOGY - GENERAL ORDER MARIA E Final Result Performing Organization Address [facility] de Phone Number [address] [phone] * (ABNORMAL) Urinalysis, microscopic only (09/07/2024 10:16 AM NUMBERER AND WIRER) WBC, ur 0-5 0 - 5 /HPF RBC, ur 3-5(A) 0 - 2 /HPF [facility] Epithelial cells, squamous, ur 11-20(A) 0 - 5 /HPF [facility] Comment:Suggestive of contam ination. Consider recollection by clean catch. Mucous, ur Present(A) [facility] Calcium oxalate crystals, ur 4+(A) [facility] Culture Reflex Comment Reflex conditions for urine culture (WBC >10) not met. [facility] Urine 09/07/2024 10:1 6 AM NUMBERER AND WIRER 09/07/2024 10:24 AM NUMBERER AND WIRER Nora MAY LAB URINE ORDERABLES Final Resul t Performing Organization Address [facility] Co de Phone Number [address] [address] * POCT hCG, urine (09/07/2024 10:16 AM NUMBERER AND WIRER) HCG, ur, POC Negative Negative Lot Number [id number] QC Backgroud Clear Acceptable QC Control Line Acceptable Urine 09/07/2024 10:1 6 AM NUMBERER AND WIRER Nora MAY POINT OF CARE TEST ORDERABLES Fi nal Result * eGFR (09/07/2024 9:13 AM NUMBERER AND WIRER) Pathologist [facility] eGFR >90 >=60 mL/min/1. 73 m2 Comment: [...] last reviewed 2021. Blood 09/07/2024 9:13 AM NUMBERER AND WIRER 09/07/2024 9:15 AM NUMBERER AND WIRER Nora MAY LAB BLOOD ORDERABLES Final Resul t MARY [address] [place] [address] * Differential, auto (09/07/2024 9:13 AM NUMBERER AND WIRER) Pathologist [facility] Neutrophil abs 3.7 1.5 - 6.5 K/cumm Imm gran abs 0.0 0.0 - 0.1 K/cumm [facility] Lymphocyte abs 1.7 0.8 - 3.3 K/cumm [facility] Monocyte abs 0.6 0.2 - 0.8 K/cumm [facility] Eosinophil abs 0.0 0.0 - 0.5 K/cumm [facility] Basophil abs 0.0 0.0 - 0.1 K/cumm [facility] Neutrophil pct 61.2 % [facility] Comment: Interpretive Data Percent cell count reference ranges are not reported, since discordance with absolute values may lead to misinterpretation of CBC data. Current Interpretive Data was last revised on 2017. Imm gran pct 0.3 % [facility] Comment: Interpretive Data Percent cell count reference ranges are not reported, since discordance with absolute values may lead to misinterpretation of CBC data. Current Interpretive Data was last revised on 2017. Lymphocyte pct 28.4 % [facility] Comment: Interpretive Data Percent cell count reference ranges are not reported, since discordance with absolute values may lead to misinterpretation of CBC data. Current Interpretive Data was last revised on 2017. Monocyte pct 9.9 % [facility] Comment: Interpretive Data Percent cell count reference ranges are not reported, since discordance with absolute values may lead to misinterpretation of CBC data. Current Interpretive Data was last revised on 2017. Eosinophil pct 0.2 % [facility] Comment: Interpretive Data Percent cell count reference ranges are not reported, since discordance with absolute values may lead to misinterpretation of CBC data. Current Interpretive Data was last revised on 2017. Basophil pct 0.0 % [facility] Comment: Interpretive Data Percent cell count reference ranges are not reported, since discordance with absolute values may lead to misinterpretation of CBC data. Current Interpretive Data was last revised on 2017. Blood 09/07/2024 9:13 AM NUMBERER AND WIRER 09/07/2024 9:15 AM NUMBERER AND WIRER us Nora MAY LAB BLOOD ORDERABLES Final Resul t MARY [address] [place] [address] * (ABNORMAL) CBC with auto differential (09/07/2024 9:13 AM NUMBERER AND WIRER) WBC 6.1 3.8 - 9.9 K/cumm Hgb 11.6(L) 11.9 - 15.5 g/dL [facility] Hct 40.0 35.6 - 45.5 % [facility] Plt 241 150 - 400 K/cumm [facility] MPV 11.0 9.1 - 12.3 fL [facility] RBC 4.81 3.90 - 5.20 M/cumm [facility] MCV 83.2 81.3 - 96.4 fL [facility] MCH 24.1(L) 27.1 - 33.3 pg [facility] MCHC 29.0(L) 32.3 - 35.7 g/dL [facility] RDW CV 16.6(H) 11.1 - 14.9 % [facility] RDW SD 50.1(H) 35.7 - 48.1 fL [facility] NRBC abs 0.00 0.00 - 0.01 K/cumm [facility] Blood 09/07/2024 9:13 AM NUMBERER AND WIRER 09/07/2024 9:15 AM NUMBERER AND WIRER us Nora MAY LAB BLOOD ORDERABLES Final Resul t Performing Organization Address City/[facility] Co de Phone Number [address] [place] [address] * Lipase (09/07/2024 9:13 AM NUMBERER AND WIRER) [facility] Lipase 29 10 - 99 Units/L Blood 09/07/2024 9:13 AM NUMBERER AND WIRER 09/07/2024 9:15 AM NUMBERER AND WIRER Nora MAY LAB BLOOD ORDERABLES Final Resul t Performing Organization Address City/[facility] Co de Phone Number [address] [place] [address] * Comprehensive metabolic panel (09/07/2024 9:13 AM NUMBERER AND WIRER) [facility] Sodium 138 135 - 145 mmol/L Potassium, pl 4.0 3.3 - 4.9 mmol/L [facility] Chloride 105 97 - 110 mmol/L [facility] CO2 26 22 - 32 mmol/L [facility] Anion gap 7 2 - 15 mmol/L [facility] BUN 11 6 - 25 mg/dL [facility] Creatinine 0.84 0.60 - 1.10 mg/dL [facility] Glucose 104 70 - 199 mg/dL [facility] Comment: Interpretive Data Fasting glucose [...] 2022. Calcium 9.2 8.5 - 10.3 mg/dL [facility] Bilirubin, total 0.3 0.1 - 1.2 mg/dL [facility] Protein, pl 7.8 6.5 - 8.5 g/dL [facility] Albumin 3.7 3.5 - 5.0 g/dL [facility] Alk phos 97 40 - 130 Units/L [facility] ALT 21 7 - 45 Units/L [facility] AST 20 10 - 45 Units/L [facility] Blood 09/07/2024 9:13 AM NUMBERER AND WIRER 09/07/2024 9:15 AM NUMBERER AND WIRER us Nora MAY LAB BLOOD ORDERABLES Final Resul t [facility] [address] Department [place] [address] * Influenza A/B, RSV, and COVID-19 PCR Nasopharyngeal (09/07/2024 8:37 AM NUMBERER AND WIRER) COVID-19 RNA Negative Negative Influenza A RNA Negative Negative [facility] Influenza B RNA Negative Negative [facility] RSV RNA Negative Negative [facility] Comment: Interpretive data: Testing performed by [facility]. This test is performed using the [employer] Xpert Xpress CoV-2/Flu/RSV plus assay. This is a multiplex, real-time reverse transcriptase PCR assay intended for the qualitative detection of nucleic acid from SARS-CoV-2, influenza A, influenza B, and respiratory syncytial virus. This assay has been cleared by the [place] Food and Drug administration. The performance characteristics have been verified by the [facility]. Results must be considered in the clinical context, and a negative result does not rule out infection. Interpretive Data last revised 2023 Nasopharyngeal 09/07/2024 8: 37 AM NUMBERER AND WIRER 09/07/2024 8:42 AM NUMBERER AND WIRER Narrative [facility] - 09/07/2024 9:20 AM NUMBERER AND WIRER Is the Patient experiencing symptoms consistent with COVID?->Yes Abhay Lance MD LAB MICROBIOLOGY - GENERAL ORDER MARIA E Final Result MARY [address] [place] [address] * POCT lipid panel (08/16/2024 3:26 PM NUMBERER AND WIRER) Cholesterol, POC 172 mg/dL HDL, POC 49 mg/dL Triglycerides, POC 88 mg/dL LDL Cholesterol POC 106 mg/dL Chol/HDL Ratio, POC 3.5 Non-HDL Cholesterol, POC 123 mg/dL Cholesterol Total, POC 172 mg/dL Capillary blood 08/16/2024 3 :26 PM NUMBERER AND WIRER Mp Broja MD POINT OF CARE TEST ORDER MARIA E Final Result * (ABNORMAL) Hemoglobin A1c (09/22/2023 9:46 AM NUMBERER AND WIRER) Hgb A1C 6.0(H) 4.0 - 5.6 % MARY Comment:Testing performed by : [facility], [address] [place] [address]., [id number] Estimated Average Glucose 126 mg/dL MARY Comment: The ADA recommends reporting an estimated Average Glucose (eAG) with all Hemoglobin A1c results using the equation derived from a study of 507 normal and diabetic adults. Minority populations were underrepresented and children were not included. (Diabetes Care 31:7441-2546, 2008). The eAG is not equivalent to a fasting glucose. Testing performed by: [facility], [address] [place] [address], [place]., [address] Blood 09/22/2023 9:46 AM NUMBERER AND WIRER 09/22/2023 12:02 PM NUMBERER AND WIRER us Kendy Pablo MD LAB BLOOD ORDERABLES Final Res ult [facility] [address] Department [place] [address] * (ABNORMAL) High Risk HPV DNA Detection with Genotyping (Molecular component) (09/22/2023 9:37 AM NUMBERER AND WIRER) HPV HR 16 Not Detected Not Detected MARY Comment:Testing performed by : [facility], [address] [place] [address]., [address] HPV HR 18 Not Detected Not Detected MARY Comment:Testing performed by : [facility], [address] [place]., [address] HPV HR Non 16/18 Detected(A) Not Detected [...] this test have been verified by the [facility] Molecular Infectious Disease laboratory. Correlate with separately reported cytology results, as applicable. Interpretive data last revised 23 Testing performed by: [facility], [address] [place] [address]., [address] Endocervical 09/22/2023 9:37 AM NUMBERER AND WIRER 09/23/2023 9:23 AM NUMBERER AND WIRER Maykel HERNANDEZ - 09/24/2023 12:05 AM NUMBERER AND WIRER Clinical history and diagnosis->screening Number of vials->1 Testing type->Screening Last menstrual period (date if known)->09/09/2023 us Kendy Pablo MD LAB BODY FLUIDS AND STOOLS ORD ERABLES Final Result Performing Organization Address [facility] Co de Phone Number MARY [address] [place] [address] * Hepatitis C antibody (12/13/2016 1:24 PM CDT) Hep C Ab NON-REACTI VE NON-REACTI VE [facility] HISTORICAL RESULTS SIGNAL TO CUT-OFF 0.03 <1.00 [facility] HISTORICAL RESULTS 12/13/2016 1:24 PM CDT 12/16/2016 1:15 PM CDT Narrative [facility] HISTORICAL RESULTS - 12/16/2016 1:00 PM CDT LTC ONLY: NURSE COLLECTED - NO SPECIMEN PROVIDED. PERFORMING LAB: [place], [facility] [address] [place] [address] Kp Vargas D.O., MPH us Antonia Hoff MD LAB MICROBIOLOGY - GENERAL O RDERABLES Final Result Performing Organization Address [facility] Co de Phone Number [facility] HISTORICAL RESULTS from Last 3 Months or Most Recently Relevant to Health Maintenance Insurance [facility] Care Teams Sports Development Officer Relationship Specialty Start Date End Date Araceli Guzmán PA PCP - General Physician Plant Accountant 07/25/22
[2024-11-23 10:48] LABS: Beta HCG Quantitative < 2.39 mIU/ML
[2024-11-23 11:08] LABS: Hemoglobin A1C 5.8 % (<5.7)
[2024-11-23 11:12] LABS: HIV 1/2 Ab P24 Ag Result Negative (Negative)
[2024-11-23 11:19] LABS: Hepatitis C Virus Antibody Negative (Negative)
[2024-11-24 10:03] LABS: FSH 3.8 mIU/mL; LH 4.5 mIU/mL; Prolactin 11.6 ng/mL
[2024-11-24 10:08] LABS: Progesterone 4.9 ng/mL
[2024-11-25 07:43] LABS: RPR Screen NON-REACTIVE (NON-REACTIVE)
== END 2024-11-23 09:45 | disposition home or self-care (01) ==
LOC: ANHLAB 09:46
PROVIDERS: PCP Physician Assistant; Visit Provider Obstetrics & Gynecology
DX: N92.6 Irregular menstruation, unspecified (principal)
CPT/HCPCS: 36415; 83001; 83002; 83036; 84144; 84146; 84402; 84403; 84702; 86592; 86695; 86696; 86703; 86803; G0432

== ENCOUNTER 2024-12-29 07:15 | Outpatient (CLI) | payer OTHER, SELFPAY ==
--- OUTSIDE RECORDS SUMMARY | 2024-12-29 07:21 | XMS_ITS | Clinical Summary ---
Author Organization [facility] [address] Address [address] [place] [address] Care Team Providers Care Metal Spray Operator Name Role Phone Araceli Guzmán Primary Care [...] Type Department Care Team Description 10/12/2024 Telephone [facility] Obstetrical Gynecology [address] [place] [address] Kendy Pablo MD from Last 3 Months Surgical History Surgery [...] on file Legal Sex Female 7:51 PM BAKERY SALES CLERK Gender Identity Female 08/09/2024 6:46 AM BAKERY SALES CLERK Sexual Orientation Straight 08/09/2024 6: 46 AM BAKERY SALES CLERK Obstetrics History Para Term AB IAB SAB Ectopic Multiple Livin g Live Births 3 0 3 3 0 Date Outcome GA Total Labor Labor/2nd/3rd Weight Sex Type Anes PTL Joan A1 A5 Name Clin SAB SAB SAB Last Filed Vital Signs Vital Sign Reading Time Taken Comments Blood Pressure 128/80 09/21/2024 2:57 PM BAKERY SALES CLERK Pulse 82 09/21/2024 2:57 PM BAKERY SALES CLERK Temperature 36.9 C (98.4 F) 09/07/2024 8:52 AM BAKERY SALES CLERK Respiratory Rate 16 09/07/2024 9:40 AM BAKERY SALES CLERK Oxygen Saturation 97% 09/21/2024 2:57 PM BAKERY SALES CLERK Inhaled Oxygen Concentration - - Weight 128.8 kg (284 lb) 09/21/2024 2:57 PM BAKERY SALES CLERK Height 170.2 cm (5' 7 ) 09/21/2024 2:57 PM BAKERY SALES CLERK Body Mass Index 44.48 09/21/2024 2:57 PM BAKERY SALES CLERK Plan of Treatment Health Maintenance Due Date [...] Procedure Name Priority Date/Time Associated Diagnosis Comments EGFR STAT 09/07/2024 9:13 AM BAKERY SALES CLERK POCT LIPID PANEL Routine 08/16/2024 3:26 PM BAKERY SALES CLERK Tachycardia, unspecified HEMOGLOBIN A1C Routine 09/22/2023 9:46 AM BAKERY SALES CLERK Abnormal uterine bleeding (AUB) HIGH RISK HPV DNA DETECTION WITH GENOTYPING Routine 09/22/2023 9:37 AM BAKERY SALES CLERK Well woman exam with routine gynecological exam HEPATITIS C ANTIBODY Routine 12/13/2016 1:24 PM CDT from Last 3 Months or Most Recently Relevant to Health Maintenance Results * eGFR (09/07/2024 9:13 AM BAKERY SALES CLERK) eGFR >90 >=60 mL/min/1. 73 m2 Comment: [...] last reviewed 2021. Blood 09/07/2024 9:13 AM BAKERY SALES CLERK 09/07/2024 9:15 AM BAKERY SALES CLERK us Nora MAY LAB BLOOD ORDERABLES Final Resul t [facility] [address] Department [place] [address] * POCT lipid panel (08/16/2024 3:26 PM BAKERY SALES CLERK) Cholesterol, POC 172 mg/dL HDL, POC 49 mg/dL Triglycerides, POC 88 mg/dL LDL Cholesterol POC 106 mg/dL Chol/HDL Ratio, POC 3.5 Non-HDL Cholesterol, POC 123 mg/dL Cholesterol Total, POC 172 mg/dL Capillary blood 08/16/2024 3 :26 PM BAKERY SALES CLERK us Mp Borja MD POINT OF CARE TEST ORDER MARIA E Final Result * (ABNORMAL) Hemoglobin A1c (09/22/2023 9:46 AM BAKERY SALES CLERK) Hgb A1C 6.0(H) 4.0 - 5.6 % MARY Comment:Testing performed by : [address] [address] Estimated Average Glucose 126 mg/dL MARY Comment: The ADA recommends reporting an estimated Average Glucose (eAG) with all Hemoglobin A1c results using the equation derived from a study of 507 normal and diabetic adults. Minority populations were underrepresented and children were not included. (Diabetes Care 31:1323-2616, 2008). The eAG is not equivalent to a fasting glucose. Testing performed by: [address] [address] Blood 09/22/2023 9:46 AM BAKERY SALES CLERK 09/22/2023 12:02 PM BAKERY SALES CLERK Kendy Pablo MD LAB BLOOD ORDERABLES Final Res ult [facility] [address] Department [place] [address] * (ABNORMAL) High Risk HPV DNA Detection with Genotyping (Molecular component) (09/22/2023 9:37 AM BAKERY SALES CLERK) Pathologist [facility] HPV HR 16 Not Detected Not Detected MARY MAK Comment:Testing performed by : [facility], [address] [facility] [place]., [address] HPV HR 18 Not Detected Not Detected MARY Comment:Testing performed by : [facility], [address] [place] [address] HPV HR Non 16/18 Detected(A) Not Detected [...] this test have been verified by the [facility] Molecular Infectious Disease laboratory. Correlate with separately reported cytology results, as applicable. Interpretive data last revised 23 Testing performed by: [facility], [address] [facility] [place]., [address] Endocervical 09/22/2023 9:37 AM BAKERY SALES CLERK 09/23/2023 9:23 AM BAKERY SALES CLERK Maykel HERNANDEZ - 09/24/2023 12:05 AM BAKERY SALES CLERK Clinical history and diagnosis->screening Number of vials->1 Testing type->Screening Last menstrual period (date if known)->09/09/2023 Kendy Pablo MD LAB BODY FLUIDS AND STOOLS ORD ERABLES Final Result MARY [address] Department [place] [address] * Hepatitis C antibody (12/13/2016 1:24 PM CDT) Hep C Ab NON-REACTI VE NON-REACTI VE [facility] HISTORICAL RESULTS SIGNAL TO CUT-OFF 0.03 <1.00 [facility] HISTORICAL RESULTS 12/13/2016 1:24 PM CDT 12/16/2016 1:15 PM CDT Narrative [facility] HISTORICAL RESULTS - 12/16/2016 1:00 PM CDT LTC ONLY: NURSE COLLECTED - NO SPECIMEN PROVIDED. PERFORMING LAB: [place], [facility] [address] [address] Kp Vargas D.O., MPH us Antonia Hoff MD LAB MICROBIOLOGY - GENERAL O RDERABLES Final Result [facility] HISTORICAL RESULTS from Last 3 Months or Most Recently Relevant to Health Maintenance Insurance [facility] Care Teams Metal Spray Operator Relationship Specialty Start Date End Date Araceli Guzmán PA PCP - General Physician Histologic Aide 07/25/22
--- OUTSIDE RECORDS SUMMARY | 2024-12-29 07:21 | XMS_ITS | Clinical Summary ---
Author Organization [facility] Address [facility] [place] [address] Care Team Providers Care Field Contact Technician Name Role Phone Rocio Rincon MD Primary Care Provider [phone] Social History Tobacco Use Types Packs/Day Years Used Date Smoking Tobacco: Never Assessed Comments Unknown Sex and Gender Information Value Date Recorded Sex Assigned at Female 10/12/2024 7:31 AM DROP CREW LABORER Legal Sex Female 8:29 PM CDT Gender Identity Female 10/12/2024 7:31 AM DROP CREW LABORER Sexual Orientation Straight 10/12/2024 7: 31 AM DROP CREW LABORER Plan of Treatment Health Maintenance Due Date [...] 5 Years) and At-Risk Patients (6 to 49 Years) Aged Out No longer eligible b ased on patient's age to complete this topic RSV Immunizations Under 20 Months Aged Out No longer eligible based on patient's age to complete this topic Insurance [facility] Care Teams Field Contact Technician Relationship Specialty Start Date End Date Rocio Rincon MD [address] [facility] [address] [place] [address] PCP - General 09/09/16
--- OUTSIDE RECORDS SUMMARY | 2024-12-29 07:21 | XMS_ITS | Data Portability ---
Author Organization [facility] Address [address] [place] [place] [address] [address] Care Team Providers Care Soyfreeze Operator Name Role Phone GIA MORENO Primary Care Provider [phone] Assessment Encounter Date Assessment Date Assessment LastModified [...] recorded. Imaging US, pelvis 2020 021 [email or web address] [address], [address], [place], [address], 17:53:52 US, transvagin al 2020 [email or web address], [address], [place], [address], 17:53:52 Medication Orders letrozole 2.5 mg tablet 2019 020 [email or web address] [id number], [address], [place], [address], 0 16:52:53 Provera 10 mg tablet 2019 020 INTERFACE [id number], [address] [place], [address], 0 14:16:04 Patient TargetsNo targets recorded. Patient [...] 23-16 5 nmol/ L Not Available [facility] ([facility]) [address], [place], [address], 03/22/2020 23:20:12 03/17/20 20 03/18/2020 prola ctin, serum prolactin 20.00 NG/mL 4.79-2 3.30 Not Available [facility] [place] [facility] [address], [place], [address], 03/22/2020 23:20:12 03/17/20 20 03/18/2020 proge stero [...] ster 58.7 - 214 Not Available [facility] ([facility]) [address], [place], [address], 03/22/2020 23:20:12 03/17/20 20 03/18/2020 lh (lute inizi ng hormo ne), serum luteinizing hormone 12.20 mIU/m L LH Refer ence Range Men: 1.7 - 8.6 Women : Folli cular phase 2.4 - 12.6 Ovula tion phase 14.0 - 95.6 Lutea l phase 1.0 - 11.4 Postm enopa use 7.7 - 58.5 Not Available [facility] ([facility]) [facility] [place][note 2][address], [place], [address], 03/22/2020 23:20:13 03/17/20 20 03/18/2020 FSH (foll icle- stimu latin g hormo ne), serum FSH 5.58 mIU/m L FSH Refer ence Range Men: 1.5 - 12.4 Women : Folli cular phase 3.5 - 12.5 Ovula tion phase 4.7 - 21.5 Lutea l phase 1.7 - 7.7 Postm enopa use 25.8 - 134.8 Not Available [facility] [place] [facility] ([facility]) [facility] [place][note 2][address], [place], [address], 03/22/2020 23:20:13 03/17/20 20 03/18/2020 estra diol, serum estradiol 53 pg/mL Estra diol Refer ence Range Healt hy women Folli cular phase 12.4 - 233 Ovula tion phase 41.0 - 398 Lutea l phase 22.3 - 341 Postm enopa use <5 - 138 Healt hy pregn ant women 1st trime ster 154 - 3243 2nd trime ster 1561 - 57979 3rd trime ster 8525 - >3000 0 Not Available [facility] ([facility]) [facility] [place][note 2][address], [place], [address], 03/22/2020 23:20:14 03/17/20 20 03/18/2020 HbA1c (hemo [...] ic <5.7% Non-D iabet ic Not Available [facility] [place] [facility] ([facility]) [facility] [place][note 2][address], [place], [address], 03/22/2020 23:20:14 03/17/20 20 03/18/2020 estim ated avera ge gluco se estimated average glucose 123 mg/dL [place] ge Gluco se is calcu lated using the equat ion AG = (28.7 x HgbA1 c) - 46.7 based on the guide lines estab lishe d by the ADA. Not Available [facility] ([facility]) [facility] [place][note 2][address], [place], [address], 03/22/2020 23:20:14 03/17/20 20 03/18/2020 TSH, serum or plasm a TSH reflex to FT4 3.10 mU/L 0.27-4 .20 Not Available [facility] ([facility]) [facility] [place][note 2][address], [place], [address], 03/22/2020 23:20:15 03/17/2003/18/2020 dhea- sulfa te, serum DHEA-sulfate 32 ug/dL 99-340 low Not Available [facility] ([facility]) [address] [place] [address] Dr [address], [place], [address], 03/22/2020 23:20:15 03/17/20 20 03/22/2020 testo stero [...] ional or for resea rch. Not Available [facility] [place] [facility] ([employer] [facility]) [address], [place], [address], 03/22/2020 23:20:15 03/17/20 20 03/22/2020 17-hy droxy [...] inter vals for this test in the [facility] Test Direc tory ([employer] lab.c om). Test devel oped and luz cteri stics deter mined by [facility]. See Compl iance State ment B: arupl ab.co m/CS Perfo rmed By: [facility] [address] [place] [address] Labor atory Direc tor: César Rolon do, MD, MS Not Available [facility] ([employer] [facility] [employer]) [address], [place], [address], 03/22/2020 23:20:16 09/03/20 20 04/27/2020 proge stero [...] -[facility] ([facility]) [address], [place], [address], 04/27/2020 08:10:27 03/23/20 21 03/23/2021 TSH TSH 2.15 uIU/m L 0.30-5 .33 Not Available [facility] (Lab) [address], [place], [address], 03/24/2021 01:47:30 03/26/20 21 03/26/2021 US, pelvi s No observ ation record ed. [email or web address] [facility] [address], [place], [address], 03/26/2021 17:41:46 03/26/20 21 03/26/2021 US, trans vagin al No observ ation record ed. [email or web address] [facility] [address], [place], [address], 03/26/2021 17:41:58 03/26/20 21 03/26/2021 US, pelvi s No observ ation record ed. LILLIANA Vlaenzuela [address], [place], [address], 03/28/2021 12:53:18 Result Notes None recorded. Problems Name Problem SNOMED Code Status Onset Date Resolution Date Notes Provider Name and Address Organization Details Recorded Time Hyperpro [place]inem [place] 967946405 Completed 201803/23/2021 Hyperpro lactinem ia;Recor ded Elsewher e: No [facility]: N Xuanti ce ID: 0001 Julius lable Time: 01:30:00 PM Desiree greene, [facility] 16:38:50 Secondar y oligomen orrhea [id number] Completed 201803/23/2021 Secondar y oligomen orrhea;R ecorded Elsewher e: No Locat ion: [facility]: [facility]el: N Xuanti ce ID: 0001 Julius lable Time: 01:30:00 PM Desiree greene, [facility] 16:38:[address] Concept Completed 201803/23/2021 Encntr for general adult medical exam w/o abnormal findings ;Recorde d Elsewher e: No Locat ion: [facility] S ource: [facility] ángel: N Xuanti ce ID: 0001 Julius lable Time: 01:30:00 PM Desiree greene, [facility] 16:38:[address] Concept Completed 201803/23/2021 Encntr for emergency department physician exam (general ) (routine ) w/o abn findings ;Recorde d Elsewher e: No Locat ion: [facility]: [facility]: N Xuanti ce ID: 0001 Julius lable Time: 01:30:00 PM Desiree greene, [facility] 16:38:56 Syphilis test finding [id number] Completed 201803/23/2021 Encounte r for screenin g for infectio n w/ a predomin antly sexual mode of transmis alicja;Rec orded Elsewher e: No Locat ion: [facility] S [facility]: [facility]el: N Xuanti ce ID: 0001 Julius lable Time: 01:30:00 PM Desiree greene [facility] 16:38:58 Female infertil ity associat ed with anovulat ion [id number] Completed 201803/23/2021 Female infertil ity associat ed with anovulat ion;Miguel rded Elsewher e: No [facility] S ource: [facility] Capsule Filler ángel: N Practi ce ID: 0001 Julius lable Time: 02:15:00 PM Desiree greene [facility] 16:38:47 Problem Notes None recorded. Procedures Surgical History Date Name Laterality Status Provider Name and Address Organization Details Recorded Time 03/12/2019 Date of Last Pap Smear completed Desiree Ariza [facility] 03/22/2020 11:36:25 Imaging Results Imaging Date Name Status LastModified by Organization Details LastModified Time 03/26/2021 US, pelvis completed [email or web address] [place] [address], [place], [address], 03/26/2021 17:41:46 03/26/2021 US, transvaginal completed [email or web address] [facility] [address], [place], [address], 03/26/2021 17:41:58 03/26/2021 US, pelvis completed LILLIANA Bianca [address], [place], [address], 03/28/2021 12:53:18 Procedure Notes None recorded. Medical [...] Elsewher e: No Locat ion: [facility] M odify By: ming lehman DateTime : [...] Updated DateTime 12/27/2020 168.91 cm 48 kg/m2 359078.9 g 138 mm[Hg] 86 mm[Hg] Katlny Oneil [facility] 15:22:37 Date Recorded Body height Body mass index (BMI) Body weight Systolic blood pressure Diastolic blood pressure Provider Name and Address Organization Details Last Updated DateTime 03/23/2021 168.91 cm 48.2 kg/m2 028062.4 9 g 146 mm[Hg] 83 mm[Hg] Desiree Ariza [facility] 1 16:37:49 Date Recorded Body height Body mass index (BMI) Body weight Systolic blood pressure Diastolic blood pressure Provider Name and Address Organization Details Last Updated DateTime 03/17/2020 168.91 cm 46.7 kg/m2 446738.1 6 g 139 mm[Hg] 92 mm[Hg] Desiree Ariza [facility] 0 12:53:00 Social History Question Answer Notes LastModified by Organizat ion Details LastModified Time Tobacco Smoking Status Never Smoker Desiree Ariza [facility] 03/22/2020 11:41:08 If You Are , What Was Your Level Of Alcohol Consumption Prior To ? None Information not available 03/23/2021 Are You Blind Or Do You Have Difficulty Seeing? No [email or web address] Information n ot available 03/23/2021 What Is Your Level Of Caffeine Consumption? Occasional Information not available 03/23/2021 In The 14 Days Before Symptom Onset, Have You Had Close Contact With A Laboratory-confirm ed COVID-19 While That Case Was Ill? No [email or web address] Information n ot available 03/23/2021 In The 14 Days Before Symptom Onset, Have You Had Close Contact With A Person Who Is Under Investigation For COVID-19 While That Person Was Ill? No [email or web address] Information not available 03/23/2021 Have You Been To An Area Known To Be High Risk For COVID-19? No [email or web address] Information not available 03/23/2021 Are You Deaf Or Do You Have Serious Difficulty Hearing? No [email or web address] Information not available 03/23/2021 What Type Of Diet Are You Following? REGULAR [email or web address] Information n ot available 03/23/2021 What Was The Date Of Your Most Recent Tobacco Screening? 03/23/2021 [email or web address] Information not available 03/23/2021 Have You Ever Been Counseled For Unhealthy Alcohol Use? No [email or web address] Information not available 03/23/2021 Do You Use Your Seat Belt Or Car Seat Routinely? Yes Information not available 03/23/2021 Do You Have Smoke And Carbon Monoxide Detectors In Your Home? Yes [email or web address] Information not available 03/23/2021 How Much Tobacco Do You Smoke? No [email or web address] Information not available 03/22/2020 Do You Use Sunscreen Routinely? Yes [email or web address] Information not available 03/23/2021 Has Tobacco Cessation Counseling Been Provided? No [email or web address] Information not available 03/23/2021 Sex: Female Functional Status Question Answer Note LastModified by Organizat ion Details LastModified Time Do you use any illicit or recreational drugs? No Information not available 03/23/2021 Do you or have you ever used any other forms of tobacco or nicotine? No [email or web address] Information not available 03/23/2021 What is your level of alcohol consumption? Occasional [email or web address] Information not available 03/22/2020 Do you or have you ever used smokeless tobacco? Never used smokeless tobacco Information not available 03/22/2020 Are you able to walk? YESWOREST [email or web address] Information not available 03/23/2021 Do you or have you ever used e-cigarettes or vape? Never used electronic cigarettes [email or web address] Information not available 03/22/2020 What is your exercise level? Occasional [email or web address] Information not available 03/22/2020 Mental Status Question Answer Note LastModified by Organization D etails LastModified Time Do you feel stressed (tense, restless, nervous, or anxious, or unable to sleep at night)? [id number] [email or web address] Information not available 03/23/2021 Family History Relationship Description Onset Age of this Age Resolved Age Notes LastModified by Organization Details LastModified Time Maternal Grandmother Malignant tumor of breast [email or web address] Not available 03/22 11:41:00 Medical History Condition Response Allergies (Food, seasonal, environmental ) N Other N Breast Cancer N Drug/Latex Allergies/Reactions N Blood Transfusion N Dermatologic Disorders N Lung Disease N Defects or Inherited Disease N Breast Problem N Gestational Diabetes N Hematologic disorders N Anesthesia Complications N History of STI N Deep Vein Thrombosis N Polycystic ovary syndrome N Anxiety Disorder N Autoimmune disease N Arthritis N Infertility N Polyps N Acid Reflux (GERD) N History of abnormal pap N Cancer N Stroke N Varicosities N Neurologic/Epilepsy N Endometriosis N High Cholesterol N Headaches N Fibromyalgia N Kidney Disease N Heart Problems N Kidney or Bladder Problems N Thyroid Problems N GI Problems N Eating Disorder N Anemia N Art (IVF or FET) N Psychiatric Illness N Ovarian Cancer N Diabetes Y Pulmonary (TB, Asthma) N Hepatitis/Liver Disease N No Past Medical History N Eczema N Urinary Tract Infection N Abuse/Domestic Violence N Asthma Y Trauma/Violence N Depression/ depression N Heart Disease N Pre-Eclampsia N Hypertension N Osteoporosis N Thrombophilias N Gynecological History Statement/Question Response Abnormal Pap [...] SNOMED-CT Code Diagnosis ICD10 Code Diagnosis Note [id number] Mercedes Billy CNM [facility] [address] [address] 03/17/2020 12:36:32 03/17/2020 14:45:04 Female infertility associated with anovulation 967764571 N97.0 discussed COST with pt and , [...] provera call for follow up Female infertility 33279 08 N97.9 Amenorrhea 30537222 N91. 2 [id number] Deniz Truong MD [facility] [address] [address] 12/27/2020 14:55:42 12/27/2020 16:39:47 Abnormal uterine bleeding 3222801292 9100 N93.9 Polycystic ovary syndrome 892254932 E28.2 this patient is a 30-year-ol d [...] to have sometime in the near future. [address] Mercedes Billy CNM [facility] [address] [address] 03/23/2021 16:24:15 03/27/2021 15:42:46 Polycystic ovary syndrome 577028350 E28.2 Irregular periods 235208 07 N92.6 Trying to conceive 41570 9001 Z31.9 08226 Deniz Truong MD [facility] [address] [address] 03/26/2021 17:04:20 03/26/2021 17:36:10 Amenorrhea 89744546 N91.2 Health Concerns Section Related Observation LastModified by Organization Detai ls LastModified Time None Recorded Concern Status LastModified by Organization Details LastModified Time None Recorded Advance Directives Directive None Recorded Payers Encounter Date Sequence Insurance Name Policy Number Policy Georges Covered Member ID Georges Member ID Guarantor Name 03/17/2020 1 [facility] - DOS PRIOR TO 2021 (MEDICAID REPLACEMENT - HMO) Tara Ta [id number] Tara Ta 12/27/2020 1 [place] [id number] Tara Ta [id number] Tara Ta 03/23/2021 1 [id number] Tara Ta [id number] Tara Keyon 03/26/2021 1 [place] [id number] Tara Ta [id number] Tara Ta Notes Date Note Type [...] has not had a semen analysis. Mercedes Billy, NAOMIE [address], [place], [address], [facility] 03/17/2020 14:18:25 12/27/2020 text/html this patient [...] future. Deniz Truong MD [address], [place], [address], [facility] 12/27/2020 16:38:54 03/23/2021 text/html trying to concei ve, irregular cycles but had cycle january and february spotting in between Mercedes Billy CNM [address], [place], [address], [facility] 03/27/2021 09:32:19 OBGyn Episode Ob Episode Information Episode Created Date Number of Fetuses Patient Bloodtype Patient rh Status Prepregnancy Weight lbs Domestic Partner Domestic Partner Phone Father Name Supply Person Status 03/22/20 20 1 CLOSED Fetus Data [...] Post Complications Tubal Sterilization Discharge Date Comments 8 2018 miscarria ge Discharge Information Feeding Method Contraceptive Method Maternal HG B and HCT Levels
--- OUTSIDE RECORDS SUMMARY | 2024-12-29 07:21 | XMS_ITS | Referral Summary ---
Author Organization [facility] [address] Address [address] [place] [address] Care Team Providers Care Copy Center Associate Name Role Phone Araceli Guzmán Primary Care Provider + Encounters Date Type Department Care Team Description 10/12/2024 Telephone [facility] Obstetrical Gynecology [address] [place] [address] Kendy Pablo MD from Last 3 Months Allergies Active Allergy [...] on file Legal Sex Female 7:51 PM DOWEL SANDER OPERATOR Gender Identity Female 08/09/2024 6:46 AM DOWEL SANDER OPERATOR Sexual Orientation Straight 08/09/2024 6: 46 AM DOWEL SANDER OPERATOR Last Filed Vital Signs Vital Sign Reading Time Taken Comments Blood Pressure 128/80 09/21/2024 2:57 PM DOWEL SANDER OPERATOR Pulse 82 09/21/2024 2:57 PM DOWEL SANDER OPERATOR Temperature 36.9 C (98.4 F) 09/07/2024 8:52 AM DOWEL SANDER OPERATOR Respiratory Rate 16 09/07/2024 9:40 AM DOWEL SANDER OPERATOR Oxygen Saturation 97% 09/21/2024 2:57 PM DOWEL SANDER OPERATOR Inhaled Oxygen Concentration - - Weight 128.8 kg (284 lb) 09/21/2024 2:57 PM DOWEL SANDER OPERATOR Height 170.2 cm (5' 7 ) 09/21/2024 2:57 PM DOWEL SANDER OPERATOR Body Mass Index 44.48 09/21/2024 2:57 PM DOWEL SANDER OPERATOR Plan of Treatment Not on file Procedures Procedure Name Priority Date/Time Associated Diagnosis Comments EGFR STAT 09/07/2024 9:13 AM DOWEL SANDER OPERATOR POCT LIPID PANEL Routine 08/16/2024 3:26 PM DOWEL SANDER OPERATOR Tachycardia, unspecified HEMOGLOBIN A1C Routine 09/22/2023 9:46 AM DOWEL SANDER OPERATOR Abnormal uterine bleeding (AUB) HIGH RISK HPV DNA DETECTION WITH GENOTYPING Routine 09/22/2023 9:37 AM DOWEL SANDER OPERATOR Well woman exam with routine gynecological exam HEPATITIS C ANTIBODY Routine 12/13/2016 1:24 PM CDT from Last 3 Months or Most Recently Relevant to Health Maintenance Results * eGFR (09/07/2024 9:13 AM DOWEL SANDER OPERATOR) eGFR >90 >=60 mL/min/1. 73 m2 [...] last reviewed 2021. Blood 09/07/2024 9:13 AM DOWEL SANDER OPERATOR 09/07/2024 9:15 AM DOWEL SANDER OPERATOR us Nora MAY LAB BLOOD ORDERABLES Final Resul t ASHLYYGE [address] [facility] [place] [address] * POCT lipid panel (08/16/2024 3:26 PM DOWEL SANDER OPERATOR) Cholesterol, POC 172 mg/dL HDL, POC 49 mg/dL Triglycerides, POC 88 mg/dL LDL Cholesterol POC 106 mg/dL Chol/HDL Ratio, POC 3.5 Non-HDL Cholesterol, POC 123 mg/dL Cholesterol Total, POC 172 mg/dL Capillary blood 08/16/2024 3 :26 PM DOWEL SANDER OPERATOR us Mp Borja MD POINT OF CARE TEST ORDER MARIA E Final Result * (ABNORMAL) Hemoglobin A1c (09/22/2023 9:46 AM DOWEL SANDER OPERATOR) Pathologist [facility] Hgb A1C 6.0(H) 4.0 - 5.6 % MARY MAK Comment:Testing performed by : [address] [address] Estimated Average Glucose 126 mg/dL MARY Comment: The ADA recommends reporting an estimated Average Glucose (eAG) with all Hemoglobin A1c results using the equation derived from a study of 507 normal and diabetic adults. Minority populations were underrepresented and children were not included. (Diabetes Care 31:8468-5131, 2008). The eAG is not equivalent to a fasting glucose. Testing performed by: [facility], [address] [place] [address]., [address] Blood 09/22/2023 9:46 AM DOWEL SANDER OPERATOR 09/22/2023 12:02 PM DOWEL SANDER OPERATOR us Kendy Pablo MD LAB BLOOD ORDERABLES Final Res ult [facility] [place] [address] * (ABNORMAL) High Risk HPV DNA Detection with Genotyping (Molecular component) (09/22/2023 9:37 AM DOWEL SANDER OPERATOR) [facility] HPV HR 16 Not Detected Not Detected MARY MAK Comment:Testing performed by : [facility], [address] [place]., [address] HPV HR 18 Not Detected Not Detected MARY Comment:Testing performed by : [facility], [address] [place]., [address] HPV HR Non 16/18 Detected(A) Not Detected [...] this test have been verified by the [facility] Molecular Infectious Disease laboratory. Correlate with separately reported cytology results, as applicable. Interpretive data last revised 23 Testing performed by: [facility], [address] [place]., [address] Endocervical 09/22/2023 9:37 AM DOWEL SANDER OPERATOR 09/23/2023 9:23 AM DOWEL SANDER OPERATOR Narrative MARY - 09/24/2023 12:05 AM DOWEL SANDER OPERATOR Clinical history and diagnosis->screening Number of vials->1 Testing type->Screening Last menstrual period (date if known)->09/09/2023 us Kendy Pablo MD LAB BODY FLUIDS AND STOOLS ORD ERABLES Final Result Performing Organization Address [facility] Co de Phone Number MARY [address] [facility] [place] [address] * Hepatitis C antibody (12/13/2016 1:24 PM CDT) Hep C Ab NON-REACTI VE NON-REACTI VE [facility] HISTORICAL RESULTS SIGNAL TO CUT-OFF 0.03 <1.00 [facility] HISTORICAL RESULTS 12/13/2016 1:24 PM CDT 12/16/2016 1:15 PM CDT Narrative [facility] HISTORICAL RESULTS - 12/16/2016 1:00 PM CDT LTC ONLY: NURSE COLLECTED - NO SPECIMEN PROVIDED. PERFORMING LAB: [place], [facility] [address] [address] [address] Kp Vargas D.O., MPH us Antonia Hoff MD LAB MICROBIOLOGY - GENERAL O RDERABLES Final Result [facility] HISTORICAL RESULTS from Last 3 Months or Most Recently Relevant to Health Maintenance Insurance [facility] Care Teams Copy Center Associate Relationship Specialty Start Date End Date Araceli Guzmán PA PCP - General Physician Iron Cutter 07/25/22
[2024-12-29 07:57] LABS: Basophils Percent Auto 0.1 % (0.2-1.2); Eosinophils Percent Auto 0.2 % (0-4.4); Hematocrit 36.6 % (37.0-47.0); Hemoglobin 10.5 g/dL (12.0-15.0); Immature Granulocyte Absolute 0.05 K/mm3 (0.00-0.031); Immature Granulocyte Percent A 0.6 % (0-0.5); Lymphocytes Absolute Auto 1.98 K/mm3 (0.9-3.2); Lymphocytes Percent Auto 24.6 % (18.3-44.2); Mean Corpuscular HGB Conc 28.7 g/dl (32-36); Mean Corpuscular Hemoglobin 24.8 pg (26-34); Mean Corpuscular Volume 86.3 fl (80-100); Mean Platelet Volume 11.5 fl (7.4-10.4); Monocytes Absolute Auto 0.8 K/mm3 (0.1-0.6); Neutrophils Absolute Auto 5.2 K/mm3 (1.3-6.7); Neutrophils Percent Auto 64.5 % (45.5-73.1); Platelet Count Result 258 k/mm3 (150-375); Red Blood Count 4.24 M/mm3 (4.2-5.4); Red Cell Distribution Width 16.1 % (11.5-14.5); White Blood Count 8.1 K/mm3 (4.5-10.0)
[2024-12-29 08:09] LABS: Iron 50 ug/dL (37-170)
[2024-12-29 08:19] LABS: Percent Iron Saturation 15 % (20-50)
[2024-12-29 08:41] LABS: Ferritin 9.45 ng/mL (6.24-137)
[2024-12-29 09:06] LABS: Anisocytosis 1+; Platelet Estimate Adequate (Adequate); Schistocytes None Seen
[2024-12-29 09:11] LABS: Vitamin D 25 Hydroxy 26.7 ng/mL
== END 2024-12-29 07:16 | disposition home or self-care (01) ==
LOC: ANHLAB 07:18
PROVIDERS: PCP Physician Assistant; Visit Provider Physician Assistant
DX: E61.1 Iron deficiency (principal)
CPT/HCPCS: 36415; 82306; 82728; 83540; 83550; 85025

== ENCOUNTER 2025-02-09 07:39 | Outpatient (CLI) | payer OTHER, SELFPAY ==
[2025-02-09 08:35] LABS: Basophils Percent Auto 0.1 % (0.2-1.2); Eosinophils Percent Auto 0.3 % (0-4.4); Hematocrit 39.1 % (37.0-47.0); Hemoglobin 11.3 g/dL (12.0-15.0); Immature Granulocyte Absolute 0.03 K/mm3 (0.00-0.031); Immature Granulocyte Percent A 0.4 % (0-0.5); Lymphocytes Absolute Auto 2.24 K/mm3 (0.9-3.2); Lymphocytes Percent Auto 31.8 % (18.3-44.2); Mean Corpuscular HGB Conc 28.9 g/dl (32-36); Mean Corpuscular Hemoglobin 24.6 pg (26-34); Mean Platelet Volume 11.7 fl (7.4-10.4); Monocytes Absolute Auto 0.6 K/mm3 (0.1-0.6); Monocytes Percent Auto 8.9 % (2.6-8.5); Neutrophils Absolute Auto 4.1 K/mm3 (1.3-6.7); Neutrophils Percent Auto 58.5 % (45.5-73.1); Platelet Count Result 287 k/mm3 (150-375); Red Cell Distribution Width 15.9 % (11.5-14.5); White Blood Count 7.1 K/mm3 (4.5-10.0)
[2025-02-09 08:50] LABS: Iron 92 ug/dL (37-170)
[2025-02-09 09:02] LABS: Percent Iron Saturation 27 % (20-50)
[2025-02-09 09:15] LABS: Anisocytosis 1+; Burr Cells 1+; Hypochromasia 1+; Ovalocytes 1+; Platelet Estimate Adequate (Adequate); Schistocytes None Seen
[2025-02-09 09:25] LABS: Ferritin 9.65 ng/mL (6.24-137)
== END 2025-02-09 07:40 | disposition home or self-care (01) ==
LOC: ANHLAB 07:41
PROVIDERS: PCP Physician Assistant; Visit Provider Physician Assistant
DX: D50.9 Iron deficiency anemia, unspecified (principal)
CPT/HCPCS: 36415; 82728; 83540; 83550; 85025

== ENCOUNTER 2025-04-04 18:38 | Emergency (ER) | payer OTHER, SELFPAY ==
--- NOTE | 2025-04-04 18:44 | ED.URI ---
HPI - URI/Sore Throat General Chief Complaint: Eye Problems Stated Complaint: Flu Symptoms/Eye Irritation Time Seen by Provider: 04/04/25 19:00 Source: patient Mode of arrival: ambulatory Limitations: no limitations History of Present Illness HPI Narrative: Elina is a 34-year-old female patient presenting to the clinic today with complaints of flu-like symptoms and possible pinkeye. She reports she wears contacts and had to take the right contact out as she was having drainage i, itching, and irritation with redness. Also reports nasal congestion, cough, body aches, ear pain, feeling feverish, and chills. States those symptoms started approximately 2:00 p.m. today. Known known fever. Denies any chest pain or shortness of breath. Related Data Home Medications ?Medication ?Instructions ?Recorded ?Confirmed ?Last Taken ?Type albuterol 90 mcg-budesonide 80 2 inh inhalation ONCE 10/13/24 11/03/24 Unknown History mcg/actuation HFA aerosol inhaler dulaglutide 3 mg/0.5 mL 3 mg subcut WEEKLY 10/13/24 11/03/24 Unknown History subcutaneous pen injector (Trulicity) amlodipine 5 mg tablet mg 04/04/25 Unknown History ferrous sulfate 325 mg (65 mg mg 04/04/25 Unknown History iron) tablet (FeroSul) Allergies Allergy/AdvReac Type Severity Reaction Status Date / Time steroid AdvReac Severe other Uncoded 04/04/25 18:51 Review of Systems Review of Systems: Pertinent positives per HPI. Patient denies any rash, headache, visual changes, dizziness, shortness of breath, chest pain, palpitations, nausea, vomiting, diarrhea, constipation, abdominal pain, or any urinary issues. [facility] Past Medical History Medical History Nausea and vomiting Diarrhea History of HPV infection Anxiety Anemia Asthma Diabetes mellitus type 2 Surgical History Surgical History History of colposcopy (10/01/23) Benign Family History Family History Grandparent Breast cancer maternal grandmother Hypertension paternal grandmother Father Hypertension Diabetes mellitus Social History Social History Smoking status: Never smoker Alcohol intake: current Drinks per week: 7 Substance use: former Substance use type: marijuana Last use: 2020 Do You Feel Safe in your Home?: Yes Lack of Transportation: No Lack of Food: Never True Current Housing: I Have Housing Concerned About Future Housing: No Difficulty Paying Gas/Electric Bills: No Difficulty Paying for Meds: No Currently Unemployed: No Education: Trade/Vocational Certificate Difficulty w/ Childcare or Family Care: Decline to Answer Additional living arrangements comments: Occupation/Education: occupation 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 There is no relevant family history pertinent to the patient complaint. Exam Narrative: General: Well-developed, obese, in no apparent distress Head: Normocephalic, atraumatic Eyes: Pupils equally round and reactive to light bilaterally, EOM intact, left sclera and conjunctive clear, no discharge, lids normal, right sclera and conjunctiva mildly injected Ears: TMs intact and clear, ear canals clear, no drainage, grossly hearing normal. Nose: Nares patent, clear nasal discharge, no inflammation, no sinus tenderness. Mouth: Oral pharynx without lesions or masses, good dentition, MMM. Neck: Supple, trachea midline, no enlargement of anterior or posterior cervical nodes, no thyroid masses or goiter palpable. Cardio: Regular rate and rhythm, s1 and s2 normal, no murmur appreciated. Resp: Clear to auscultation bilaterally, no rhonchi, rales, wheezing or rubs Course Course Emergency Course: Portions of this record may have been created with voice recognition software. Level of Care: Express Care Visit Vital Signs Vital signs: Vital Signs Temperature 36.3 C L 04/04/25 18:55 Pulse Rate 82 04/04/25 18:55 Respiratory Rate 20 04/04/25 18:55 Blood Pressure 157/107 H 04/04/25 18:55 Pulse Oximetry 100 04/04/25 18:55 Oxygen Delivery Room Air 04/04/25 18:55 Temperature 36.3 C L 04/04/25 18:55 Pulse Rate 82 04/04/25 18:55 Respiratory Rate 20 04/04/25 18:55 Blood Pressure 157/107 H 04/04/25 18:55 Pulse Oximetry 100 04/04/25 18:55 Oxygen Delivery Room Air 04/04/25 18:55 Vital signs reviewed MDM - URI/Sore Throat MDM Narrative Medical decision making narrative: At the time of visit patient is resting comfortably on the exam table. Patient appears to be nontoxic. Complaints of flu-like symptoms and possible pinkeye. She reports she wears contacts and had to take the right contact out as she was having drainage i, itching, and irritation with redness. Also reports nasal congestion, cough, body aches, ear pain, feeling feverish, and chills. States those symptoms started approximately 2:00 p.m. today. Known known fever. Denies any chest pain or shortness of breath. Patient is concern for COVID and flu. Explained that it may be too early for testing but will test her- patient is requesting it. Labs: COVID and influenza testing was performed and negative in the clinic today. Plan: I suspect patient has right conjunctivitis with URI/viral syndrome. Patient does wear contacts. Keep contact out of the right eye until symptoms resolved. Will send in prescription for ofloxacin eyedrops. Supportive measures were discussed with the patient and they voiced understanding discharge instructions and agrees to treatment plan. Return precautions reviewed Differential Diagnosis Differential diagnosis: Likely upper respiratory infection, otitis media, sinusitis, viral infection, bronchitis, influenza, pharyngitis and other (Conjunctivitis, COVID) Lab Data Labs: Lab Results 04/04/25 Range/Units 19:19 POC Influenza A Ag Negative (Negative) POC Influenza B Ag Negative (Negative) POC SARS CoV-2 Ag Negative (Negative) Discharge Plan Discharge Clinical Impression: Acute viral syndrome Conjunctivitis Qualifiers: Conjunctivitis type: acute Acute conjunctivitis type: unspecified Laterality: right Qualified Code(s): H10.31 - Unspecified acute conjunctivitis, right eye URI (upper respiratory infection) Qualifiers: URI type: unspecified URI Qualified Code(s): J06.9 - Acute upper respiratory infection, unspecified Patient Disposition: Home Condition: Stable Instructions: Antibiotic Form, Viral Syndrome (ED), Cold Symptoms (ED), Conjunctivitis (ED) Additional Instructions: Conjunctivitis discharge instructions: Conjunctivitis is considered contagious for 24 hours while on the antibiotic. Practice good hand washing techniques Avoid touching eyes Instill eyedrops as prescribed May use warm moist washcloth to help remove eye discharge If eyes are matted shut-do not pry eyes open-use a warm moist cloth to loosen matting and wipe matter away from eye May take Tylenol/Motrin as needed for pain or fever May take Benadryl as needed for itching Follow-up with your PCP in 3-5 days if symptoms persist or sooner if they worsen Go to the emergency room if you develop any fever that is not controlled by Tylenol or Motrin, loss of vision, eye pain, increase eye swelling,visual changes, headache, confusion, lethargy, weakness, chest pain, or shortness of breath. URI discharge instructions: COVID and influenza testing was negative in the clinic today. Increase fluids and stay well hydrated May take Tylenol or motrin as directed on bottle for pain/fever May use Flonase 1 spray in each nare daily May take OTC antihistamines such as Zyrtec or Claritin daily as directed on bottle May apply Vicks vapor rub to chest to open sinuses Sinus rinses for congestion Cepacol spray, cough drops, throat lozenges, warm tea with honey/lemon, gargle salt water to soothe throat BRAT diet for diarrhea Clear liquids x 24 hours then advance as tolerated for nausea/vomiting Go to the ED if you develop a worsening in your condition- high fever not controlled by Tylenol or Motrin, dehydration, weakness, lethargy, shortness of breath, or chest pain. Follow up with your PCP in 3-5 days if symptoms persist. Patient Language: Georgian Prescriptions: New ofloxacin 0.3 % drops 1 drp RIGHT EYE QID 7 Days Qty: 10 0RF No Action amlodipine 5 mg tablet ferrous sulfate [FeroSul] 325 mg (65 mg iron) tablet Trulicity 3 mg/0.5 mL pen injector 3 mg subcut WEEKLY albuterol-budesonide 90-80 mcg/actuation HFA aerosol inhaler 2 inh inhalation ONCE Rx Instructions: as a single dose; may repeat up to 6 doses per day (12 inhalations) Follow-up/Referrals: Jessie,MD Margoth [Primary Care Provider] - Stand Alone Forms: Work/School Release IP Time of Disposition: 19:20 Quality NIHSS Nursing Documentation ED NIHSS nursing documentation: reviewed/agree
[2025-04-04 18:55] VITALS: BP 157/107; PULSE 82; RESP 20; TEMP 36.3; O2SAT 100
[2025-04-04 19:21] LABS: EDCOVIDSCREEN Negative (Negative); EDINFLUASCREEN Negative (Negative); EDINFLUBSCREEN Negative (Negative)
== END 2025-04-04 19:25 | disposition home or self-care (01) ==
PROVIDERS: Emergency Provider Nurse Practitioner Family; PCP Internal Medicine
DX: H10.31 Unspecified acute conjunctivitis, right eye (principal); J06.9 Acute upper respiratory infection, unspecified; B34.9 Viral infection, unspecified; J45.909 Unspecified asthma, uncomplicated; E11.9 Type 2 diabetes mellitus without complications; F41.9 Anxiety disorder, unspecified; Z20.822 Contact with and (suspected) exposure to COVID-19
CPT/HCPCS: 87426; 87804; 99213; G0463

== ENCOUNTER 2025-04-26 07:57 | Emergency (ER) | payer OTHER, SELFPAY ==
[2025-04-26 08:00] VITALS: BP 159/106; PULSE 98; RESP 16; TEMP 36.5; O2SAT 100
[2025-04-26 08:07] VITALS: O2SAT 100
--- NOTE | 2025-04-26 08:15 | PC.NURSE ---
Pt also states she has been out of her Trulicity for 2 weeks due to insurance issues
[2025-04-26 08:16] VITALS: BP 145/90; PULSE 76; RESP 16; O2SAT 100
--- OUTSIDE RECORDS SUMMARY | 2025-04-26 08:21 | XMS_ITS | Clinical Summary ---
Author Organization [facility] Address [address] [place] [address] Phone Care Team Providers Care Brick Setter Name Role Phone Araceli Guzmán Sariah JOHNSON Primary Care Provider + [phone] Allergies Active Allergy Reactions Criticality Noted Date Comments Other-Environmental Allergen (Not Found In Search) Other (see Comments) 04/14/2025 Steroids- hyperglycemia Medications Trulicity 3 MG/0.5ML Solution Auto-injector 3 mg once a week. Active FeroSul 325 (65 Fe) MG Tablet Take 325 mg by mouth every other day. Active amLODIPine (NORVASC) 5 MG Tablet Take 5 mg by mouth daily. Active albuterol 108 (90 Base) MCG/ACT Aerosol Solution take 1-2 Puffs by inhalation every 4 hours as needed. Active Cholecalciferol (VITAMIN D3 PO) Take 5,000 Units by mouth daily. Active Active Problems No known active problems Encounters Date Type Department Care Team Description 04/14/2025 2:45 PM CDT Lab [facility] [address] [address] Lab, [facility] [place] Anemia, unspecified type 04/14/2025 2:00 PM CDT Office Visit [facility] [address] [address] Manuel Meyers MD Anemia, unspecified type (Primary Dx); Other fatigue; Excessive bleeding in premenopausal period; Iron deficiency 04/14/2025 Travel from Last 3 Months Social History Tobacco Use Types Packs/Day Years Used Date Smoking Tobacco: Never Smokeless Tobacco: Never Alcohol Use Standard Drinks/Week Comments Yes 0 (1 standard drink = 0.6 oz pur e alcohol) Comments Unknown Sex and Gender Information Value Date Recorded Sex Assigned at Not on file Legal Sex Female 3:02 PM CDT Gender Identity Not on file Sexual Orientation Not on file Last Filed Vital Signs Vital Sign Reading Time Taken Comments Blood Pressure 140/90 04/14/2025 2:12 PM CDT Pulse 73 04/14/2025 2:12 PM CDT Temperature 36.2 C (97.2 F) 04/14/2025 2:12 PM CDT Respiratory Rate 16 04/14/2025 2:12 PM CDT Oxygen Saturation 98% 04/14/2025 2:12 PM CDT Inhaled Oxygen Concentration - - Weight 126 kg (277 lb 12.8 oz) 04/14/2025 2:12 P M CDT Height 170.2 cm (5' 7) 04/14/2025 2:12 PM CDT Body Mass Index 43.51 04/14/2025 2:12 PM CDT Plan of Treatment Health Maintenance Due Date Last Done Comments Hepatitis C Virus (HCV) Screening 1992 Pap Smear 2013 Human Papillomavirus (HPV) Immunization (1 - 3-dose SCDM series) 2019 Cervical Cancer Screening (CCS) 2022 HPV/Cotest 2022 Influenza Immunization (#1) 04/18/202506/18, 10/04/2022, 04/16/2021, Additional history exists SARS-COV-2 Immunization ( season) 2025 03/26/2021, 03/04/2021 Respiratory Syncytial Virus (RSV) Immunization (Adult) (1 - 1-dose 75+ series) 2067 Hepatitis B Immunization Completed 994, 08/24/1993, 02/07/1993, Additional history exists Meningococcal Immunization (ACWY) Completed 09/24/2008 TdaP Immunization Completed 12/19/2017, 01/03/2007 Pneumococcal Immunization Combined Aged Out 03/21/2022 No longer eligible based on patient's age to complete this topic Rotavirus Immunization Aged Out No lo nger eligible based on patient's age to complete this topic Procedures Procedure Name Priority Date/Time Associated Diagnosis Comments VITAMIN B12 [id number] [place] Routine 04/14/2025 2:39 PM CDT IRON AND TIBC [id number] OH Routine 04/14/2025 2:39 PM CDT FOLATE [id number] [place] Routine 04/14/2025 2:39 PM CDT FERRITIN [id number] [place] Routine 04/14/2025 2: 39 PM CDT COMPLETE BLOOD COUNT (CBC) WITH DIFF Routine 04/14/2025 2:39 PM CDT Anemia, unspecified type RETICULOCYTE COUNT (RETIC) Routine 04/14/2025 2:39 PM CDT Anemia, unspecified type CMP (COMPREHENSIVE METABOLIC PANEL) Routine 04/14/2025 2:39 PM CDT Anemia, unspecified type from Last 3 Months Results * VITAMIN B12 [id number] [place] (04/14/2025 2:39 PM CDT) VITAMIN B12 480 232 - 1,245 PG/ML [facility] 04/14/2025 2:39 PM CDT Narrative [facility] [facility] [employer]ICE [facility] - 04/15/2025 7:09 AM CDT TESTING PERFORMED AT: [CB] [facility] [address], [address], PHONE: [phone], SOLID STATE TESTER: DIANE ORTIZ, PHD us Manuel Meyers MD LAB SEND OUTS Final Result [facility] [employer] SERVICE ENG[employer] [place] [address], * (ABNORMAL) IRON AND TIBC [id number] [place] (04/14/2025 2:39 PM CDT) Iron Bind.Cap.(TIBC) 299 250 - 450 UG/DL [facility] UIBC 281 131 - 425 UG/DL [facility] SALES AND SERVICE ENGINEER [facility] Iron, Serum 18(L) 27 - 159 UG/DL [facility] Iron Saturation 6(LL) 15 - 55 % [facility] SALES AND SERVICE ENGINEER [facility] 04/14/2025 2:39 PM CDT [facility] - 04/15/2025 7:09 AM CDT TESTING PERFORMED AT: [] [facility], [address] [place] [address], [address], PHONE: [phone], SOLID STATE TESTER: DIANE ORTIZ, PHD us Manuel Meyers MD LAB SEND OUTS Final Result Performing Organization Address [facility] Co de Phone Number [facility] Cancer Care [address] [place] [address], * FOLATE [id number] [place] (04/14/2025 2:39 PM CDT) Folate (Folic Acid), Serum 11.7 >3.0 NG/ML [facility] Comment: A SERUM FOLATE CONCENTRATION OF LESS THAN 3.1 NG/ML IS CONSIDERED TO REPRESENT CLINICAL DEFICIENCY. 04/14/2025 2:39 PM CDT [facility] - 04/15/2025 7:09 AM CDT TESTING PERFORMED AT: [] [facility], [address] [place] [address], [address], PHONE: [phone], SOLID STATE TESTER: DIANE ORTIZ, PHD us Manuel Meyers MD LAB SEND OUTS Final Result Performing Organization Address City/[facility]/ZIP Co de Phone Number [facility] Cancer Care [address] [place] [address], * FERRITIN [id number] [place] (04/14/2025 2:39 PM CDT) Ferritin, Serum 20 15 - 150 NG/ML [facility] 04/14/2025 2:39 PM CDT [facility] - 04/15/2025 7:09 AM CDT TESTING PERFORMED AT: [] [facility], [address] [place] [address], [address], PHONE: [phone], SOLID STATE TESTER: DIANE ORTIZ, PHD Manuel Meyers MD LAB SEND OUTS Final Result Performing Organization Address [facility] Co de Phone Number [facility] Cancer Care [address] [place] [address], [place] [phone] * RETICULOCYTE COUNT (RETIC) (04/14/2025 2:39 PM CDT) Reticulocyte count 1.35 0.50 - 1.70 % [facility] RET-He 28.20 28.20 - 36.60 pg [facility] Comment: RET-He is a direct assessment of incorporation of iron into erythrocyte hemoglobin. It provides an indirect measure of the iron available for new erythropoiesis over past 2-4 days. Blood 04/14/2025 2:39 PM CDT [facility] - 04/14/2025 2:50 PM CDT Release to patient->Immediate us Manuel Meyers MD HEMATOLOGY ORDERABLES Final Resu lt Performing Organization Address [facility]/ZIP Co de Phone Number [facility] [place] [place] [address], [place] [phone] * (ABNORMAL) CMP (COMPREHENSIVE METABOLIC PANEL) (04/14/2025 2:39 PM CDT) Glucose 90 70 - 105 mg/dL [facility] Blood Urea Nitrogen 9 7 - 25 mg/dL [facility] Creatinine 0.8 0.6 - 1.2 mg/dL [facility] Sodium 139 136 - 145 mEq/L [facility] Potassium 4.2 3.5 - 5.1 mEq/L [facility] Chloride 103 98 - 107 mEq/L [facility] Bicarbonate 29 21 - 31 mEq/L [facility] Total Bilirubin 0.4 0.3 - 1.0 mg/dL [facility] Alk. Phosphatase 81 34 - 104 U/L [facility] Aspartate Aminotransferase 12(L) 13 - 39 U/L [facility] Alanine Aminotransferase 17 7 - 52 U/L [facility] Total Protein 7.5 6.4 - 8.9 g/dL [facility] Albumin 4.1 3.5 - 5.7 g/dL [facility] Calcium 9.6 8.6 - 10.3 mg/dL [facility] Anion Gap 11.2 7.0 - 15.0 mEq/L [facility] Globulin 3.4 2.0 - 3.5 g/dL [facility] EGFR 100 >60 ml/min/1. 73m2 [facility] Comment: This eGFR is calculated using 2020 CKD-EPI Creatinine equation without race modifier based on the NKF-ASN task force recommendations Equation: oXDL=246*min(SCr/k,1)a*max(SCr/k,1)-1.200*0.9938Age*1.012 (if female), where SCr is serum creatinine, k is 0.7 for females and 0.9 for males, and a is -0.241 for females and -0.302 for males Blood 04/14/2025 2:39 PM CDT Narrative [facility] - 04/14/2025 3:24 PM CDT Release to patient->Immediate IS THE PATIENT REQUIRED TO BE FASTING FOR 8 HOURS?->No us Manuel Meyers MD CHEMISTRY ORDERABLES Final Resul t [facility] SALES AND SERVICE ENGINEER [facility] [place] [address], [place] [phone] * (ABNORMAL) COMPLETE BLOOD COUNT (CBC) WITH DIFF (04/14/2025 2:39 PM CDT) WBC 6.9 4.0 - 10.0 10*3/uL [facility] SALES AND SERVICE ENGINEER [facility] HGB 11.2 11.2 - 15.7 g/dL [facility] SALES AND SERVICE ENGINEER [facility] HCT 38.0 34.1 - 44.9 % CAN[facility] SALES AND SERVICE ENGINEER [facility] PLT 263 163 - 369 10*3/uL [facility] SALES AND SERVICE ENGINEER [facility] MPV 10.7 9.4 - 12.4 fL [facility] SALES AND SERVICE ENGINEER [facility] RBC 4.46 3.93 - 5.22 10*6/uL [facility] SALES AND SERVICE ENGINEER [facility] MCV 85 79 - 95 fL [facility] SALES AND SERVICE ENGINEER [facility] MCH 25.1(L) 25.6 - 32.2 pg [facility] SALES AND SERVICE ENGINEER [facility] MCHC 29.5(L) 32.2 - 36.5 g/dL [facility] SAL[facility] AND SERVICE ENGINEER [facility] RDW 15.9(H) 11.6 - 14.4 % [facility] SALES AND SERVICE ENGINEER [facility] Absolute Neutrophil Count 4,209 cells/uL [facility] Absolute Seg Count 4,209 1,440 - 6,600 cells/uL [facility] SALES AND SERVICE ENGINEER [facility] Absolute Lymph Count 2,277 760 - 4,000 cells/uL [facility] SALES AND SERVICE ENGINEER [facility] Absolute [place]berry Count 345 160 - 1,200 cells/uL [facility] SALES AND SERVICE ENGINEER [facility] Absolute Eos Count 69 0 - 300 cells/uL [facility] SALES AND SERVICE ENGINEER [facility] Segmented Neutrophils 61 36 - 66 % [facility]ES AND SERVICE ENGINEER [facility] Lymphocytes 33 19 - 40 % [facility] Monocytes 5 4 - 12 % [facility] Eosinophils 1 0 - 3 % [facility] WBC Estimate Normal CANCER SALES AND SERVICE ENGINEER [facility] Platelet Estimate Normal [facility] SALES AND SERVICE ENGINEER [facility] RBC Morphology Abnormal C[facility] R SALES AND SERVICE ENGINEER [facility] Anisocytosis 1+ [facility] SALES AND SERVICE ENGINEER [facility] Blood 04/14/2025 2:39 PM CDT Narrative [facility] SALES AND SERVICE ENGINEER [facility] - 04/14/2025 3:47 PM CDT Release to patient->Immediate us Manuel Meyers MD HEMATOLOGY ORDERABLES Final Resu lt CAN[facility] SALES AND SERVICE ENGINEER OF [facility] [address] [place] [address], from Last 3 Months Care Teams Brick Setter Relationship Specialty Start Date End Date Araceli Guzmán, ELIZABETH [address] [place] [address] PCP - General Physician Flight Attendant/Inflight Supervisor 02/15/25
--- OUTSIDE RECORDS SUMMARY | 2025-04-26 08:22 | XMS_ITS | Clinical Summary ---
Author Organization [facility] [place] [address] Address [address] [place] [address] Care Team Providers Care Plumbing Designer Name Role Phone Araceli Guzmán Primary Care [...] syndrome) 07/25/2022 Abnormal uterine bleeding (AUB) 07/25/2022 Surgical History Surgery Date Site/Laterality Comments US [...] on file Legal Sex Female 7:51 PM MECHANICAL MANAGER Gender Identity Female 08/09/2024 6:46 AM MECHANICAL MANAGER Sexual Orientation Straight 08/09/2024 6: 46 AM MECHANICAL MANAGER Obstetrics History Para Term AB IAB SAB Ectopic Multiple Livin g Live Births 3 0 3 3 0 Date Outcome GA Total Labor Labor/2nd/3rd Weight Sex Type Anes PTL Joan A1 A5 Name Clin SAB SAB SAB Last Filed Vital Signs Vital Sign Reading Time Taken Comments Blood Pressure 128/80 09/21/2024 2:57 PM MECHANICAL MANAGER Pulse 82 09/21/2024 2:57 PM MECHANICAL MANAGER Temperature 36.9 C (98.4 F) 09/07/2024 8:52 AM MECHANICAL MANAGER Respiratory Rate 16 09/07/2024 9:40 AM MECHANICAL MANAGER Oxygen Saturation 97% 09/21/2024 2:57 PM MECHANICAL MANAGER Inhaled Oxygen Concentration - - Weight 128.8 kg (284 lb) 09/21/2024 2:57 PM MECHANICAL MANAGER Height 170.2 cm (5' 7) 09/21/2024 2:57 PM MECHANICAL MANAGER Body Mass Index 44.48 09/21/2024 2:57 PM MECHANICAL MANAGER Plan of Treatment Health Maintenance Due Date Last Done Comments Albumin Creatinine Ratio, Urine 1992 Depression Screening 1992 Dilated Eye Exam 1992 Foot Exam 1992 Varicella Vaccines (2 of 2 - 13+ 2-dose series) 04/29/2014 04/01/2014 HPV Vaccines (1 - 3-dose SCD M series) 2019 Pneumococcal vaccine <65 (2 of 2 - PCV) 03/21/2023 03/21/2022 Hemoglobin A1C 03/22/2024 09/22/2023, 02/01/2023, 02/24/2017 Covid-19 Vaccine (3 - 2023-2 5 season) 2024 03/26/2021, 03/04/2021 Cervical Cancer Screening 09/22/20242023, 09/22/2023, 07/25/2022, Additional history exists Regular Well Visit/Exam 18-64 09/22/2024 09/22/2023, 07/25/2022 Influenza Vaccine (#1) 2025 , 05/11/2018, 2015 Lipid Panel 08/16/2025 08/16/2024 eGFR 09/07/2025 09/07/2024, 05/18, 09/23/2022 DTaP/Tdap/Td Vaccine (8 - Td or Tdap) 12/20/2027 12/19/2017, 01/03/2007, 08/26/1996, Additional history exists Hepatitis B Screening Completed 02/06/1994 , 08/24/1993, 02/07/1993, Additional history exists Hepatitis C Screening Completed 12/13/2016 Procedures Procedure Name Priority Date/Time Associated Diagnosis Comments EGFR STAT 09/07/2024 9:13 AM MECHANICAL MANAGER POCT LIPID PANEL Routine 08/16/2024 3:26 PM MECHANICAL MANAGER Tachycardia, unspecified HEMOGLOBIN A1C Routine 09/22/2023 9:46 AM MECHANICAL MANAGER Abnormal uterine bleeding (AUB) HIGH RISK HPV DNA DETECTION WITH GENOTYPING Routine 09/22/2023 9:37 AM MECHANICAL MANAGER Well woman exam with routine gynecological exam HEPATITIS C ANTIBODY Routine 12/13/2016 1:24 PM CDT from Last 3 Months or Most Recently Relevant to Health Maintenance Results * eGFR (09/07/2024 9:13 AM MECHANICAL MANAGER) eGFR >90 >=60 mL/min/1. 73 m2 Comment: [...] last reviewed 2021. Blood 09/07/2024 9:13 AM MECHANICAL MANAGER 09/07/2024 9:15 AM MECHANICAL MANAGER us Nora MAY LAB BLOOD ORDERABLES Final Resul t [facility] [address] [facility] Department [place] [address] * POCT lipid panel (08/16/2024 3:26 PM MECHANICAL MANAGER) Cholesterol, POC 172 mg/dL HDL, POC 49 mg/dL Triglycerides, POC 88 mg/dL LDL Cholesterol POC 106 mg/dL Chol/HDL Ratio, POC 3.5 Non-HDL Cholesterol, POC 123 mg/dL Cholesterol Total, POC 172 mg/dL Capillary blood 08/16/2024 3 :26 PM MECHANICAL MANAGER us Mp Borja MD POINT OF CARE TEST ORDER MARIA E Final Result * (ABNORMAL) Hemoglobin A1c (09/22/2023 9:46 AM MECHANICAL MANAGER) Pathologist [facility] Hgb A1C 6.0(H) 4.0 - 5.6 % MARY Comment:Testing performed by : [address] [address] Estimated Average Glucose 126 mg/dL MARY Comment: The ADA recommends reporting an estimated Average Glucose (eAG) with all Hemoglobin A1c results using the equation derived from a study of 507 normal and diabetic adults. Minority populations were underrepresented and children were not included. (Diabetes Care 31:0443-9347, 2008). The eAG is not equivalent to a fasting glucose. Testing performed by: [address] [address] Blood 09/22/2023 9:46 AM MECHANICAL MANAGER 09/22/2023 12:02 PM MECHANICAL MANAGER Kendy Pablo MD LAB BLOOD ORDERABLES Final Result [facility] [address] [facility] Department [place] [address] * (ABNORMAL) High Risk HPV DNA Detection with Genotyping (Molecular component) (09/22/2023 9:37 AM MECHANICAL MANAGER) [facility] HPV HR 16 Not Detected Not Detected MARY Comment:Testing performed by : [facility], [address] [place] [address] HPV HR 18 Not Detected Not Detected MARY Comment:Testing performed by : [facility], [address] [place] [address] HPV HR Non 16/18 Detected(A) Not Detected [...] test have been verified by the [facility] Molecular Infectious Disease laboratory. Correlate with separately reported cytology results, as applicable. Interpretive data last revised 23 Testing performed by: [facility], [address] [place]., [address] Endocervical 09/22/2023 9:37 AM MECHANICAL MANAGER 09/23/2023 9:23 AM MECHANICAL MANAGER Narrative MARY - 09/24/2023 12:05 AM MECHANICAL MANAGER Clinical history and diagnosis->screening Number of vials->1 Testing type->Screening Last menstrual period (date if known)->09/09/2023 us Kendy Pablo MD LAB BODY FLUIDS AND STOOLS ORDERABLES Final Result [facility] [address] [facility] Department [place] [address] * Hepatitis C antibody (12/13/2016 1:24 PM CDT) Hep C Ab NON-REACTI VE NON-REACTI VE [facility] HISTORICAL RESULTS SIGNAL TO CUT-OFF 0.03 <1.00 [facility] HISTORICAL RESULTS 12/13/2016 1:24 PM CDT 12/16/2016 1:15 PM CDT Narrative [facility] HISTORICAL RESULTS - 12/16/2016 1:00 PM CDT LTC ONLY: NURSE COLLECTED - NO SPECIMEN PROVIDED. PERFORMING LAB: [place], [facility] [address] [address] Kp Vargas D.O., MPH us Antonia Hoff MD LAB MICROBIOLOGY - GENERAL O RDERABLES Final Result [facility] HISTORICAL RESULTS from Last 3 Months or Most Recently Relevant to Health Maintenance Insurance [facility] Care Teams Plumbing Designer Relationship Specialty Start Date End Date Araceli Guzmán PA PCP - General Physician Full Time Paramedic 07/25/22
[2025-04-26 08:55] LABS: Strep Group A RT-PCR NOT DETECTED (Negative)
--- OUTSIDE RECORDS SUMMARY | 2025-04-26 08:56 | XMS_ITS | Clinical Summary ---
Author Organization [facility] Address [address] [place] [address] Phone Care Team Providers Care Military Analyst Name Role Phone Araceli Guzmán Sariah JOHNSON Primary Care Provider + [phone] Allergies Active Allergy Reactions Criticality Noted Date [...] PM CDT Lab [facility] [address] [address] Lab, [facility] [place] Anemia, unspecified type 04/14/2025 2:00 PM CDT Office Visit [facility] [address] [address] Manuel Meyers MD Anemia, unspecified [...] Priority Date/Time Associated Diagnosis Comments VITAMIN B12 [id number] [place] Routine 04/14/2025 2:39 PM CDT IRON AND TIBC [id number] [place] Routine 04/14/2025 2:39 PM CDT FOLATE [id number] [place] Routine 04/14/2025 2:39 PM CDT FERRITIN [id number] [place] Routine 04/14/2025 2: 39 PM CDT COMPLETE BLOOD COUNT (CBC) WITH DIFF Routine 04/14/2025 2:39 PM CDT Anemia, unspecified type RETICULOCYTE COUNT (RETIC) Routine 04/14/2025 2:39 PM CDT Anemia, unspecified type CMP (COMPREHENSIVE METABOLIC PANEL) Routine 04/14/2025 2:39 PM CDT Anemia, unspecified type from Last 3 Months Results * VITAMIN B12 [id number] [place] (04/14/2025 2:39 PM CDT) VITAMIN B12 480 232 - 1,245 PG/ML [facility] 04/14/2025 2:39 PM CDT Narrative [facility] - 04/15/2025 7:09 AM CDT TESTING PERFORMED AT: [CB] [facility] [address], [address], PHONE: [phone], GEOGRAPHICAL HISTORIAN: DIANE ORTIZ, PHD us Manuel Meyers MD LAB SEND OUTS Final Result [facility] [place] [address], * (ABNORMAL) IRON AND TIBC [id number] [place] (04/14/2025 2:39 PM CDT) Iron Bind.Cap.(TIBC) 299 250 - 450 UG/DL [facility] UIBC 281 131 - 425 UG/DL [facility] P[facility]ED [facility]IPE [facility] Iron, Serum 18(L) 27 - 159 UG/DL [facility] Iron Saturation 6(LL) 15 - 55 % [facility] POURED PIPE [facility] 04/14/2025 2:39 PM CDT [facility] - 04/15/2025 7:09 AM CDT TESTING PERFORMED AT: [] [facility], [address] [place] [address], [address], PHONE: [phone], GEOGRAPHICAL HISTORIAN: DIANE ORTIZ, PHD us Manuel Meyers MD LAB SEND OUTS Final Result Performing Organization Address [facility] Co de Phone Number [facility]ED [facility] Cancer Care [address] [place] [address], * FOLATE [id number] [place] (04/14/2025 2:39 PM CDT) Folate (Folic Acid), Serum 11.7 >3.0 NG/ML [facility] Comment: A SERUM FOLATE CONCENTRATION OF LESS THAN 3.1 NG/ML IS CONSIDERED TO REPRESENT CLINICAL DEFICIENCY. 04/14/2025 2:39 PM CDT [facility] - 04/15/2025 7:09 AM CDT TESTING PERFORMED AT: [] [facility] [address] [place] [address], [address], PHONE: [phone], GEOGRAPHICAL HISTORIAN: DIANE ORTIZ, PHD us Manuel Meyers MD LAB SEND OUTS Final Result Performing Organization Address City/[facility]/ZIP Co de Phone Number [facility] POURED PIPE [facility] Cancer Care [address] [place] [address], * FERRITIN [id number] [place] (04/14/2025 2:39 PM CDT) Ferritin, Serum 20 15 - 150 NG/ML [facility] 04/14/2025 2:39 PM CDT [facility] - 04/15/2025 7:09 AM CDT TESTING PERFORMED AT: [] [facility], [address] [place] [address], [address], PHONE: [phone], GEOGRAPHICAL HISTORIAN: DIANE ORTIZ, PHD Manuel Meyers MD LAB SEND OUTS Final Result Performing Organization Address [facility] Co de Phone Number [facility] POURED PIPE [facility] Cancer Care [address] [place] [address], [place] [phone] * RETICULOCYTE COUNT (RETIC) (04/14/2025 2:39 PM CDT) Reticulocyte count 1.35 0.50 - 1.70 % [facility] P[facility]ED [facility] RET-He 28.20 28.20 - 36.60 pg [facility] POURED PIPE [facility] Comment: RET-He is a direct assessment of incorporation of iron into erythrocyte hemoglobin. It provides an indirect measure of the iron available for new erythropoiesis over past 2-4 days. Blood 04/14/2025 2:39 PM CDT [facility] - 04/14/2025 2:50 PM CDT Release to patient->Immediate us Manuel Meyers MD HEMATOLOGY ORDERABLES Final Resu lt Performing Organization Address [facility]/ZIP Co de Phone Number [facility] [place] [address], [place] [phone] * (ABNORMAL) CMP (COMPREHENSIVE METABOLIC PANEL) (04/14/2025 2:39 PM CDT) Glucose 90 70 - 105 mg/dL [facility] Blood Urea Nitrogen 9 7 - 25 mg/dL [facility] Creatinine 0.8 0.6 - 1.2 mg/dL [facility] POURED PIPE [facility] Sodium 139 136 - 145 mEq/L [facility] Potassium 4.2 3.5 - 5.1 mEq/L [facility] Chloride 103 98 - 107 mEq/L [facility] Bicarbonate 29 21 - 31 mEq/L [facility] Total Bilirubin 0.4 0.3 - 1.0 mg/dL [facility] POURED [facility] Alk. Phosphatase 81 34 - 104 U/L [facility] POURED PIPE [facility] Aspartate Aminotransferase 12(L) 13 - 39 U/L [facility] Alanine Aminotransferase 17 7 - 52 U/L [facility] Total Protein 7.5 6.4 - 8.9 g/dL [facility] Albumin 4.1 3.5 - 5.7 g/dL [facility] Calcium 9.6 8.6 - 10.3 mg/dL [facility] Anion Gap 11.2 7.0 - 15.0 mEq/L [facility] Globulin 3.4 2.0 - 3.5 g/dL [facility] EGFR 100 >60 ml/min/1. 73m2 [facility] Comment: This eGFR is calculated using 2020 CKD-EPI Creatinine equation without race modifier based on the NKF-ASN task force recommendations Equation: uHBQ=087*min(SCr/k,1)a*max(SCr/k,1)-1.200*0.9938Age*1.012 (if female), where SCr is serum creatinine, k is 0.7 for females and 0.9 for males, and a is -0.241 for females and -0.302 for males Blood 04/14/2025 2:39 PM CDT Narrative [facility] - 04/14/2025 3:24 PM CDT Release to patient->Immediate IS THE PATIENT REQUIRED TO BE FASTING FOR 8 HOURS?->No us Manuel Meyers MD CHEMISTRY ORDERABLES Final Resul t [facility] [place] [address], [place] [phone] * (ABNORMAL) COMPLETE BLOOD COUNT (CBC) WITH DIFF (04/14/2025 2:39 PM CDT) WBC 6.9 4.0 - 10.0 10*3/uL [facility] HGB 11.2 11.2 - 15.7 g/dL [facility] HCT 38.0 34.1 - 44.9 % [facility] PLT 263 163 - 369 10*3/uL [facility] MPV 10.7 9.4 - 12.4 fL [facility] RBC 4.46 3.93 - 5.22 10*6/uL [facility] MCV 85 79 - 95 fL [facility] MCH 25.1(L) 25.6 - 32.2 pg [facility] MCHC 29.5(L) 32.2 - 36.5 g/dL [facility] RDW 15.9(H) 11.6 - 14.4 % [facility] Absolute Neutrophil Count 4,209 cells/uL [facility] Absolute Seg Count 4,209 1,440 - 6,600 cells/uL [facility] Absolute Lymph Count 2,277 760 - 4,000 cells/uL [facility] Absolute Aurora Count 345 160 - 1,200 cells/uL [facility] Absolute Eos Count 69 0 - 300 cells/uL [facility] Segmented Neutrophils 61 36 - 66 % [facility] Lymphocytes 33 19 - 40 % [facility] Monocytes 5 4 - 12 % [facility]CER [address] [facility] Eosinophils 1 0 - 3 % [facility] WBC Estimate Normal [facility] Platelet Estimate Normal [facility] RBC Morphology Abnormal [facility] R POURED PIPE [facility] Anisocytosis 1+ [facility] Blood 04/14/2025 2:39 PM CDT Narrative [facility] - 04/14/2025 3:47 PM CDT Release to patient->Immediate us Manuel Meyers MD HEMATOLOGY ORDERABLES Final Resu lt [facility] [address] [place] [address], from Last 3 Months Care Teams Military Analyst Relationship Specialty Start Date End Date Araceli Guzmán, ELIZABETH [address] [place] [address] PCP - General Physician Country Director 02/15/25
--- OUTSIDE RECORDS SUMMARY | 2025-04-26 08:56 | XMS_ITS | Clinical Summary ---
Author Organization [facility] [place] [address] Address [address] [place] [address] Care Team Providers Care Family Worker Name Role Phone Araceli Guzmán Primary Care [...] on file Legal Sex Female 7:51 PM MANAGEMENT SPECIALIST Gender Identity Female 08/09/2024 6:46 AM MANAGEMENT SPECIALIST Sexual Orientation Straight 08/09/2024 6: 46 AM MANAGEMENT SPECIALIST Obstetrics History Para Term AB IAB SAB Ectopic Multiple Livin g Live Births 3 0 3 3 0 Date Outcome GA Total Labor Labor/2nd/3rd Weight Sex Type Anes PTL Joan A1 A5 Name Clin SAB SAB SAB Last Filed Vital Signs Vital Sign Reading Time Taken Comments Blood Pressure 128/80 09/21/2024 2:57 PM MANAGEMENT SPECIALIST Pulse 82 09/21/2024 2:57 PM MANAGEMENT SPECIALIST Temperature 36.9 C (98.4 F) 09/07/2024 8:52 AM MANAGEMENT SPECIALIST Respiratory Rate 16 09/07/2024 9:40 AM MANAGEMENT SPECIALIST Oxygen Saturation 97% 09/21/2024 2:57 PM MANAGEMENT SPECIALIST Inhaled Oxygen Concentration - - Weight 128.8 kg (284 lb) 09/21/2024 2:57 PM MANAGEMENT SPECIALIST Height 170.2 cm (5' 7) 09/21/2024 2:57 PM MANAGEMENT SPECIALIST Body Mass Index 44.48 09/21/2024 2:57 PM MANAGEMENT SPECIALIST Plan of Treatment Health Maintenance Due Date [...] Diagnosis Comments EGFR STAT 09/07/2024 9:13 AM MANAGEMENT SPECIALIST POCT LIPID PANEL Routine 08/16/2024 3:26 PM MANAGEMENT SPECIALIST Tachycardia, unspecified HEMOGLOBIN A1C Routine 09/22/2023 9:46 AM MANAGEMENT SPECIALIST Abnormal uterine bleeding (AUB) HIGH RISK HPV DNA DETECTION WITH GENOTYPING Routine 09/22/2023 9:37 AM MANAGEMENT SPECIALIST Well woman exam with routine gynecological exam HEPATITIS C ANTIBODY Routine 12/13/2016 1:24 PM CDT from Last 3 Months or Most Recently Relevant to Health Maintenance Results * eGFR (09/07/2024 9:13 AM MANAGEMENT SPECIALIST) eGFR >90 >=60 mL/min/1. 73 m2 Comment: [...] last reviewed 2021. Blood 09/07/2024 9:13 AM MANAGEMENT SPECIALIST 09/07/2024 9:15 AM MANAGEMENT SPECIALIST us Nora MAY LAB BLOOD ORDERABLES Final Resul t [facility] [address] [facility] Department [place] [address] * POCT lipid panel (08/16/2024 3:26 PM MANAGEMENT SPECIALIST) Cholesterol, POC 172 mg/dL HDL, POC 49 mg/dL Triglycerides, POC 88 mg/dL LDL Cholesterol POC 106 mg/dL Chol/HDL Ratio, POC 3.5 Non-HDL Cholesterol, POC 123 mg/dL Cholesterol Total, POC 172 mg/dL Capillary blood 08/16/2024 3 :26 PM MANAGEMENT SPECIALIST us Mp Borja MD POINT OF CARE TEST ORDER MARIA E Final Result * (ABNORMAL) Hemoglobin A1c (09/22/2023 9:46 AM MANAGEMENT SPECIALIST) Pathologist [facility] Hgb A1C 6.0(H) 4.0 - 5.6 % MARY Comment:Testing performed by : [address] [address] Estimated Average Glucose 126 mg/dL MARY Comment: The ADA recommends reporting an estimated Average Glucose (eAG) with all Hemoglobin A1c results using the equation derived from a study of 507 normal and diabetic adults. Minority populations were underrepresented and children were not included. (Diabetes Care 31:1214-6935, 2008). The eAG is not equivalent to a fasting glucose. Testing performed by: [address] [address] Blood 09/22/2023 9:46 AM MANAGEMENT SPECIALIST 09/22/2023 12:02 PM MANAGEMENT SPECIALIST Kendy Pablo MD LAB BLOOD ORDERABLES Final Result [facility] [address] [facility] Department [place] [address] * (ABNORMAL) High Risk HPV DNA Detection with Genotyping (Molecular component) (09/22/2023 9:37 AM MANAGEMENT SPECIALIST) [facility] HPV HR 16 Not Detected Not Detected MARY Comment:Testing performed by : [facility], [address] [place]., [address] HPV HR 18 Not Detected Not Detected MARY Comment:Testing performed by : [facility], [address] [place]., [address] HPV HR Non 16/18 Detected(A) Not Detected [...] this test have been verified by the [facility] Molecular Infectious Disease laboratory. Correlate with separately reported cytology results, as applicable. Interpretive data last revised 23 Testing performed by: [facility], [address] [place]., [address] Endocervical 09/22/2023 9:37 AM MANAGEMENT SPECIALIST 09/23/2023 9:23 AM MANAGEMENT SPECIALIST Narrative MARY - 09/24/2023 12:05 AM MANAGEMENT SPECIALIST Clinical history and diagnosis->screening Number of vials->1 Testing type->Screening Last menstrual period (date if known)->09/09/2023 us Kendy Pablo MD LAB BODY FLUIDS AND STOOLS ORDERABLES Final Result [facility] [address] [facility] Department [place] [address] * Hepatitis C antibody (12/13/2016 1:24 PM CDT) Hep C Ab NON-REACTI VE NON-REACTI VE [facility] HISTORICAL RESULTS SIGNAL TO CUT-OFF 0.03 <1.00 [facility] HISTORICAL RESULTS 12/13/2016 1:24 PM CDT 12/16/2016 1:15 PM CDT Narrative [facility] HISTORICAL RESULTS - 12/16/2016 1:00 PM CDT LTC ONLY: NURSE COLLECTED - NO SPECIMEN PROVIDED. PERFORMING LAB: [place], [facility] [address] [address] Kp Vargas D.O., MPH us Antonia Hoff MD LAB MICROBIOLOGY - GENERAL O RDERABLES Final Result [facility] HISTORICAL RESULTS from Last 3 Months or Most Recently Relevant to Health Maintenance Insurance [facility] Care Teams Family Worker Relationship Specialty Start Date End Date Araceli Guzmán PA PCP - General Physician Agronomy Internship 07/25/22
--- NOTE | 2025-04-26 09:03 | ED_ITS ---
HPI - General Adult General Chief complaint: Upper Respiratory Infection Stated complaint: multiple complaints Time Seen by Provider: 04/26/25 08:09 History of Present Illness HPI narrative: 34-year-old female presents to the emergency department for evaluation for 24 hours of ear pain, nasal congestion, sore throat body aches and fatigue. 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 Patient does have prior history of asthma, anemia, anxiety, PCOS Related Data Home Medications ?Medication ?Instructions ?Recorded ?Confirmed ?Last Taken ?Type albuterol 90 mcg-budesonide 80 2 inh inhalation ONCE 0 10/13/24 11/03/24 Unknown History mcg/actuation HFA aerosol inhaler dulaglutide 3 mg/0.5 mL 3 mg subcut WEEKLY 10/13/24 11/03/24 Unknown History subcutaneous pen injector (Trulicity) amlodipine 5 mg tablet mg 04/04/25 Unknown History ferrous sulfate 325 mg (65 mg mg 04/04/25 Unknown His tory iron) tablet (FeroSul) Allergies Allergy/AdvReac Type Severity Reaction Status Date / Time steroid AdvReac Severe other Uncoded 04/26/25 08:06 Review of Systems Review of Systems: All systems reviewed & are unremarkable except as noted in HPI and below PMFSH Past Medical History Medical History Nausea and vomiting Diarrhea History of HPV infection Anxiety Anemia Asthma Diabetes mellitus type 2 Surgical History Surgical History History of colposcopy (10/01/23) Benign Family History Family History Grandparent Breast cancer maternal grandmother Hypertension paternal grandmother Father Hypertension Diabetes mellitus Social History Social History Smoking status: Never smoker Alcohol intake: current Drinks per week: 7 Substance use: former Substance use type: marijuana Last use: 2019 Do You Feel Safe in your Home?: Yes Lack of Transportation: No Lack of Food: Never True Current Housing: I Have Housing Concerned About Future Housing: No Difficulty Paying Gas/Electric Bills: No Difficulty Paying for Meds: No Currently Unemployed: No Education: Trade/Vocational Certificate Difficulty w/ Childcare or Family Care: Decline to Answer Additional living arrangements comments: Occupation/Education: occupation 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 HEAD: normocephalic, atraumatic. EYES: PERRLA/EOMI, conjunctivae clear. NOSE: Normal no drainage EARS:TMS clear with good light reflex. THROAT: Pharynx clear, no exudate. NECK: Supple. No adenopathy, no masses. RESPIRATORY: Airway patent, respirations nonlabored. Clear to auscultation bilaterally, no rales, rhonchi, wheezing. CARDIOVASCULAR: Regular rate and rhythm without murmurs rubs or gallops. ABDOMINAL: Soft, nontender, nondistended, normal bowel sounds MUSCULOSKELETAL: Moves all extremities. Strength/ROM intact, No edema, No calf tenderness. NEURO: Alert. Cranial nerves II through XII intact. Grossly intact SKIN: Warm, dry. Normal Color Course Vital Signs Vital signs: Vital Signs Temperature 97.7 F 04/26/25 08:00 Pulse Rate 98 04/26/25 08:00 Respiratory Rate 16 04/26/25 08:00 Blood Pressure 159/106 H 04/26/25 08:00 Pulse Oximetry 100 04/26/25 08:00 Oxygen Delivery Room Air 04/26/25 08:00 Temperature 97.7 F 04/26/25 08:00 Pulse Rate 74 04/26/25 09:25 Respiratory Rate 18 04/26/25 09:25 Blood Pressure 141/88 H 04/26/25 09:25 Pulse Oximetry 99 04/26/25 09:25 Oxygen Delivery Room Air 04/26/25 08:07 Medical Decision Making MDM Narrative Medical decision making narrative: 34-year-old female presents to the emergency department for evaluation for body ache fatigue sore throat and ear pain. Patient was negative for influenza RSV COVID and strep throat. Patient has normal posterior pharynx and no evidence otitis media. Patient will be advised to take Tylenol and ibuprofen for fever and for body aches. Suspect a viral syndrome as the etiology for her symptoms. Patient was updated results of the workup and treatment plan for home. All questions concerns were addressed. Differential Diagnosis Differential Diagnosis: COVID, RSV influenza, viral etiology, pneumonia, otitis media, otitis externa, strep pharyngitis Vital Signs Vital Signs: Vital Signs Temperature 97.7 F 04/26/25 08:00 Pulse Rate 98 04/26/25 08:00 Respiratory Rate 16 04/26/25 08:00 Blood Pressure 159/106 H 04/26/25 08:00 Pulse Oximetry 100 04/26/25 08:00 Oxygen Delivery Room Air 04/26/25 08:00 Temperature 97.7 F 04/26/25 08:00 Pulse Rate 74 04/26/25 09:25 Respiratory Rate 18 04/26/25 09:25 Blood Pressure 141/88 H 04/26/25 09:25 Pulse Oximetry 99 04/26/25 09:25 Oxygen Delivery Room Air 04/26/25 08:07 Lab Data Lab results reviewed: Yes I reviewed the patient's lab results. Labs: Lab Results 04/26/25 Range/Units 08:19 POC Capillary Glucose 91 (65-105) mg/dl Influenza A (RT-PCR) Negative (Negative) Influenza B (RT-PCR) Negative (Negative) RSV (RT-PCR) Negative (Negative) SARS-CoV-2 RNA (RT-PCR) Negative (Negative) Group A Strep (PCR) Not detected (Negative) Discharge Plan Discharge Clinical Impression: Sore throat, Otalgia, Acute viral syndrome Patient Disposition: Home Condition: Stable Instructions: Antibiotic Form, Viral Syndrome (ED) Additional Instructions: Tylenol and ibuprofen for pain control. Drink plenty of fluids. Decongestant as needed. Have close follow-up with your primary care physician. If you have any worsening symptoms then please call or return to the emergency department. Patient Language: Kyrgyz Prescriptions: New albuterol sulfate 90 mcg/actuation HFA aerosol inhaler 1 puff inhalation QID Qty: 6.7 0RF No Action amlodipine 5 mg tablet ferrous sulfate [FeroSul] 325 mg (65 mg iron) tablet ofloxacin 0.3 % drops 1 drp RIGHT EYE QID 7 Days Qty: 10 0RF Trulicity 3 mg/0.5 mL pen injector 3 mg subcut WEEKLY albuterol-budesonide 90-80 mcg/actuation HFA aerosol inhaler 2 inh inhalation ONCE Rx Instructions: as a single dose; may repeat up to 6 doses per day (12 inhalations) Follow-up/Referrals: Jessie,MD Margoth [Primary Care Provider, Unknown] Stand Alone Forms: Work/School Release IP
[2025-04-26 09:06] LABS: Influenza A QL RT-PCR Negative (Negative); Influenza B QL RT-PCR Negative (Negative); RSV RNA, RT-PCR Negative (Negative); SARS-CoV-2 RNA PCR Negative (Negative)
[2025-04-26 09:25] VITALS: BP 141/88; PULSE 74; RESP 18; O2SAT 99
== END 2025-04-26 09:25 | disposition home or self-care (01) ==
PROVIDERS: Emergency Provider Emergency Medicine; PCP Internal Medicine
DX: B34.9 Viral infection, unspecified (principal); Z20.822 Contact with and (suspected) exposure to COVID-19; E11.9 Type 2 diabetes mellitus without complications; J45.909 Unspecified asthma, uncomplicated; E28.2 Polycystic ovarian syndrome; F41.9 Anxiety disorder, unspecified; Z86.2 Personal history of diseases of the blood and blood-forming organs and certain disorders involving the immune mechanism; Z79.85 Long-term (current) use of injectable non-insulin antidiabetic drugs
CPT/HCPCS: 82948; 87637; 87651; 99283

== ENCOUNTER 2025-05-03 07:36 | Outpatient (CLI) | payer OTHER, SELFPAY ==
--- NOTE | 2025-05-03 | CONSULT_PTH ---
PATIENT: Tara Ta LOC: ANHLAB #:[id number] AGE/SX: 34/F ROOM: RE05/03/[address]: Margoth RomanMD : 1990 BED: DIS: 05/03/2025 SPEC #: [id number] RECD: 05/03/25 09:02 STATUS: ABE REQ #: [id number] LESLIE: 05/03/25 00:[address]: JessieMargoth DEPT: [facility] Consult RECD BY: Johanny Ambrosio MLT, [facility] Tissues: A - Peripheral Blood Procedures: Flow Cytometry
[2025-05-03 08:24] LABS: Hematocrit 37.6 % (37.0-47.0); Hemoglobin 11.0 g/dL (12.0-15.0); Immature Granulocyte Percent A 0.3 % (0-0.5); Lymphocytes Absolute Auto 2.07 K/mm3 (0.9-3.2); Mean Corpuscular HGB Conc 29.3 g/dl (32-36); Mean Corpuscular Hemoglobin 25.2 pg (26-34); Mean Corpuscular Volume 86.2 fl (80-100); Nucleated Red Blood Cells Absolute Auto 0.000 K/mm3 (0.0-0.012); Nucleated Red Blood Cells Perc 0.0 % (0.0-0.2); Platelet Count Result 270 k/mm3 (150-375); Red Blood Count 4.36 M/mm3 (4.2-5.4); White Blood Count 8.9 K/mm3 (4.5-10.0)
[2025-05-03 08:34] LABS: Hemoglobin A1C 5.9 % (<5.7)
[2025-05-03 08:40] LABS: Alanine Aminotransferase 22 U/L (6-35); Albumin Level 3.7 g/dL (3.5-5.1); Alkaline Phosphatase 92 U/L (38-126); Anion Gap 6 mmol/L (4-12); Aspartate Amino Transferase 23 U/L (14-36); Bilirubin,Total 0.3 mg/dL (0.2-1.3); Blood Urea Nitrogen 15 mg/dL (7-17); Calcium 9.0 mg/dL (8.4-10.2); Carbon Dioxide 27 mmol/L (22-30); Chloride 105 mmol/L (98-107); Cholesterol 136 mg/dL (0-200); Estimated Glomerular Filt Rate > 60; Glucose 105 mg/dL (65-110); HDL Direct 36 mg/dL; Magnesium 2.0 mg/dL (1.6-2.3); Potassium 4.5 mmol/L (3.4-5.0); Sodium 138 mmol/L (137-145); Total Protein 7.4 g/dL (6.3-8.2); Triglycerides 90 mg/dL (<150)
[2025-05-03 09:01] LABS: Anisocytosis Occasional; Hypochromasia Occasional; Schistocytes None Seen
[2025-05-03 09:02] LABS: Ovalocytes Occasional
[2025-05-03 09:12] LABS: Thyroid Stimulating Hormone Reflex 0.866 uIU/mL (0.465-4.68)
== END 2025-05-03 07:37 | disposition home or self-care (01) ==
PROVIDERS: PCP Internal Medicine; Visit Provider Internal Medicine
DX: Z00.00 Encounter for general adult medical examination without abnormal findings (principal); Z79.899 Other long term (current) drug therapy; Z76.89 Persons encountering health services in other specified circumstances
CPT/HCPCS: 36415; 80053; 80061; 83036; 83735; 84443; 85025; 86803; 88184

== ENCOUNTER 2025-06-24 07:19 | Outpatient (CLI) | payer OTHER, SELFPAY ==
--- OUTSIDE RECORDS SUMMARY | 2025-06-24 07:26 | XMS_ITS | Encounter Summary ---
Author Organization [facility] Address [address] [place] [address] Care Team Providers Care Maritime Engineer Name Role Phone Margoth Roman MD Primary Care Provider [phone] Encounter Details Date Type Department Care Team (Latest Contact Info) Description 04/30/2025 Results Follow-Up [address] [address] Margoth Roman MD [address] [place] [id number] URINALYSIS, ALBUMIN/CREATININE RATIO, RANDOM URINE Social History Tobacco Use Types Packs/Day Years Used Date Smoking Tobacco: Never Smokeless Tobacco: Never Alcohol Use Standard Drinks/Week Comments Yes 0 (1 standard drink = 0.6 oz pur e alcohol) socially PHQ-2 Answer Date Recorded Patient Health Questionnaire-2 Score 0 04/29/2025 Comments No Sex and Gender Information Value Date Recorded Sex Assigned at Female 10/12/2024 7:31 AM CINDER MAN Legal Sex Female 8:29 PM CDT Gender Identity Female 10/12/2024 7:31 AM CINDER MAN Sexual Orientation Straight 10/12/2024 7: 31 AM CINDER MAN documented as of this encounter Plan of Treatment Upcoming Encounters Date Type Department Care Team (Late st Contact Info) Description 06/24/2025 3:00 PM CINDER MAN Office Visit [place] [address] [address] [place] [address] Margoth Roman MD [address] [address] documented as of this encounter Visit Diagnoses Not on filedocumented in this encounter Additional Health Concerns Assessment Noted Time PHQ-9 Depression Total Score: 9 04/29/20 25 3:29 PM CDT documented as of this encounter Care Teams Maritime Engineer Relationship Specialty Start Date End Date Margoth Roman MD [address] [address] PCP - General INTERNAL MEDICINE 04/29/25 documented as of this encounter
--- OUTSIDE RECORDS SUMMARY | 2025-06-24 07:26 | XMS_ITS | Clinical Summary ---
Author Organization [facility] Address [address] [place] [address] Care Team Providers Care Transportation Lead Name Role Phone Margoth Roman MD Primary Care Provider [phone] Allergies Active Allergy Reactions Criticality Noted Date Comments Corticosteroids Other (see comment) Low 08/16/2024 diabetes Medications Vitamin D3 (VITAMIN D) 50 mcg tablet daily. Active tirzepatide (MOUNJARO) 7.5 MG/0.5ML injectionIndicat ions:Diabetes Mellitus Inject 7.5 mg into the skin once a week. Indications: Diabetes 2 mL 2 5 Active losartan (COZAAR) 25 MG tabletIndication s:Type 2 diabetes mellitus with hyperglycemia, without long-term current use of insulin ([facility]) Take 1 tablet (25 mg total) by mouth daily. 90 tablet 1 5 Active albuterol sulfate HFA 108 (90 Base) MCG/ACT inhalerIndicatio ns:Mild intermittent asthma without complication ([facility]) Inhale 2 puffs into the lungs every 6 (six) hours as needed for Wheezing. Ok to substitute 18 g 5 5 Active ondansetron (ZOFRAN) 4 MG tabletIndication s:Drug therapy Take 1 tablet (4 mg total) by mouth every 8 (eight) hours as needed. 20 tablet 5 Active iron sucrose 200 mg/100 mL SolutionIndicati ons:Iron deficiency anemia, unspecified iron deficiency anemia type Inject 100 mLs (200 mg total) into the vein once a week. Please fax over to infusion center thank you. 100 mL 1 5 Active fluticasone-salm eterol (WIXELA INHUB) 250-50 MCG/ACT inhalerIndicatio ns:Mild intermittent asthma without complication ([facility]HS/HCC) Inhale 1 puff into the lungs 2 (two) times daily. 60 each 4 5 Active Respiratory Therapy Supplies (NEBULIZER/TUBIN G/MOUTHPIECE) KitIndications:M ild intermittent asthma without complication (HHS/HCC) 1 kit by Does not apply route daily as needed. 1 kit 5 Active NEBULIZER DEVICE, DME,Indications: Mild intermittent asthma without complication (HHS/HCC) Use daily for shortness of breath and asthma exacerbation. 1 Device 5 Active albuterol (ACCUNEB) 0.63 MG/3ML nebulizer solutionIndicati ons:Mild intermittent asthma without complication (HHS/HCC) Take 3 mLs (0.63 mg total) by nebulization every 6 (six) hours as needed for Wheezing. 1440 mL 5 Active Active Problems Problem Noted Date Diagnosed Date Leg cramps 04/29/2025 Hypertension associated with diabetes 04/29/2025 Iron deficiency anemia, unsp ecified iron deficiency anemia type 04/29/2025 Morbidly obese 04/29/2025 Mild intermittent asthma without complication Type 2 diabetes mellitus wit h hyperglycemia, without long-term current use of insulin 04/29/2025 Encounters Date Type Department Care Team Description 06/22/2025 Telephone [facility] Multispecialty Care - [place] [address] [place] [address] Margoth Roman MD Information 06/15/2025 Telephone [facility] Multispecialty Care - [place] [address] [place] [address] Margoth Roman MD Medication Information 06/10/2025 Scan [facility] HEALTH INFO SRVCS Scanned, Doc [facility] 05/31/2025 Orders Only [facility] Family Medicine - [place] [address] [address] Antonia Weston LPN 05/30/2025 Scan HEALTH INFO SRVCS Scanned, Doc Med [facility] 05/30/2025 Telephone [facility] Multispecialty Care [place] [address] [address] [place] [address] Margoth Roman MD Orders 05/30/2025 Orders Only [facility] Infusion Services at [place] [address] [place] [address] Margoth Roman MD 05/26/2025 Telephone [facility] Multispecialty Care - [place] [address] [address] [place] [address] Margoth Roman MD Information 05/16/2025 3:00 PM CDT Treatment [facility] Infusion Services at [facility], [place] [address] [place] [address] Margoth Roman MD Infusion Therapy 05/16/2025 Travel 05/10/2025 Orders Only [facility] Multispecialty [facility] - [place] [address] [address] [place] [address] Margoth Roman MD 05/09/2025 3:00 PM CDT Treatment [facility] Infusion Services at [facility], [place] [address] [place] [address] Margoth Roman MD Infusion Therapy 05/09/2025 Travel 05/09/2025 Telephone [facility] Multispecialty Care - [address] [place] [address] Margoth Roman MD Other 05/09/2025 Orders Only [facility] Multispecialty Care - [address] [place] [address] Margoth Roman MD 05/09/2025 [employer] [facility] Multispecialty [place] [address] [facility] [address] [place] [address] Margoth Roman MD Medication 05/06/2025 [facility]phone [facility] [place] [address] [address] [place] [address] Margoth Roman MD Medication Information 05/04/2025 Orders Only [facility] Infusion Services at [facility] [address] [facility] [address], [address] [address] Margoth Roman MD 05/03/2025 Scan [employer] Twitter Dashboard INFO SRVCS Scanned, Doc Med [facility] Pathology (SCAN); Lab (SCAN) 05/03/2025 Telephone [facility] [place] [address] [address] [place] [address] Margoth Roman MD Medication Information 05/02/2025 [employer] [facility] [place] [address] [address] [place] [address] Margoth Roman MD [facility] 05/02/2025 Telephone [facility] [place] [address] [address] [place] [address] Margoth Roman MD Lab Order 04/30/2025 Results [facility] [place] [address] [address] [place] [address] Margoth Roman MD URINALYSIS, ALBUMIN/CREATININE RATIO, RANDOM URINE 04/29/2025 3:00 PM CDT [facility] [place] [address] [address] [place] [address] Margoth Roman MD Establish Care (Transfer pt. Would like to discuss iron infusion ); Physical; Hypertension; Weight Problem; Diabetes; Asthma 04/29/2025 Travel 04/26/2025 Scan [facility] HEALTH INFO SRVCS Scanned, Doc Med [facility] Lab (SCAN) 04/15/2025 Scan [facility] HEALTH INFO SRVCS Scanned, Doc Med Group Lab (SCAN) 04/14/2025 Scan [facility] HEALTH INFO SRVCS Scanned, Doc Med [facility] Lab (SCAN) 04/04/2025 Scan [facility] HEALTH INFO SRVCS Scanned, Doc Med Group from Last 3 Months Family History Medical History Relation Comments Diabetes Father Hypertension Father Cancer Maternal Grandmother Diabetes Paternal Grandmother Hypertension Paternal Grandmother Relation Status Comments Father Maternal Grandmother Paternal Grandmother Social History Tobacco Use Types Packs/Day Years Used Date Smoking Tobacco: Never Smokeless Tobacco: Never Tobacco Cessation:Counseling Given: No Alcohol Use Standard Drinks/Week Comments Yes 0 (1 standard drink = 0.6 oz pur e alcohol) socially PHQ-2 Answer Date Recorded Patient Health Questionnaire-2 Score 0 04/29/2025 Comments No Sex and Gender Information Value Date Recorded Sex Assigned at Female 10/12/2024 7:31 AM FIRE PREVENTION ENGINEER Legal Sex Female 8:29 PM CDT Gender Identity Female 10/12/2024 7:31 AM FIRE PREVENTION ENGINEER Sexual Orientation Straight 10/12/2024 7: 31 AM FIRE PREVENTION ENGINEER Last Filed Vital Signs Vital Sign Reading Time Taken Comments Blood Pressure 145/82 05/16/2025 3:10 PM CDT Pulse 96 05/16/2025 3:10 PM CDT Temperature 37 C (98.6 F) 05/16/2025 3:10 PM CDT Respiratory Rate 20 05/16/2025 3:10 PM CDT Oxygen Saturation 99% 05/16/2025 3:10 PM CDT Inhaled Oxygen Concentration - - Weight 126.4 kg (278 lb 9.6 oz) 04/29/2025 3:01 PM CDT Height 170.2 cm (5' 7) 04/29/2025 3:01 PM CDT Body Mass Index 43.63 04/29/2025 3:01 PM CDT Plan of Treatment Upcoming Encounters Date Type Department Care Team (Late st Contact Info) Description 06/24/2025 3:00 PM FIRE PREVENTION ENGINEER Office Visit [facility] Multispecialty Care - [address] [place] [address] Margoth Roman MD [address] [facility] [address] [place] [address] Health Maintenance Due Date Last Done Comments Cervical Cancer Screening Pap Smear (Age 30 to 64) Every 3 Years 1990 Kidney Health Evaluation 1992 Diabetes: Retinopathy Eye Exam 2010 Hepatitis C 2010 HPV Vaccines (1 - 3-dose SCDM series) 2019 Cervical Cancer Screening Pap with HPV Testing (Age 30 to 64) Every 5 Years 2022 Cervical Cancer Screening with HPV 2022 Pneumococcal Vaccine: Pediatrics (0 to 5 Years) and At-Risk Patients (6 to 49 Years) (2 of 2 - PCV) 03/21/2023 03/21/2022 Hemoglobin A1C 03/22/2024 09/22/2023, 09/23/2022 COVID-19 Vaccine ( season) 2025 03/26/2021, 03/04/2021 Influenza Adult (#1) 2025 07/01/2024, 10/04/2022, 04/16/2021, Additional history exists Lipid Panel 08/16/2025 08/16/2024 Annual Physical 04/29/2026 04/29/2025 DTaP, Tdap and Td Vaccines (8 - Td or Tdap) 12/20/2027 12/19/2017, 01/03/2007, 08/26/1996, Additional history exists Hepatitis B Vaccines Completed 02/06/1994, 08/24/1993, 02/07/1993, Additional history exists Hepatitis A Vaccines Completed 01/03/2007, 01/21/20 06 Meningococcal Vaccine Aged Out 09/24/2008 No milan francisco javier eligible based on patient's age to complete this topic PHQ-2 (Physician [place]) Completed 04/29/2025 Meningococcal B Vaccine Aged Out No l onger eligible based on patient's age to complete this topic RSV Immunizations Under 20 Months Aged Out No longer eligible based on patient's age to complete this topic Procedures Procedure Name Priority Date/Time Associated Diagnosis Comments PATHOLOGY GENERIC (SCAN ORDER) 05/03/2025 OUTSIDE LAB (SCAN ORDER) 05/03/2025 ALBUMIN URINE RANDOM W/CREATININE Routine 04/29/2025 4:27 PM CDT Type 2 diabetes mellitus with hyperglycemia, without long-term current use of insulin ([facility]) URINALYSIS, AUTO, COMPLETE Routine 04/29/2025 4:27 PM CDT Annual physical exam Establishing care with new doctor, encounter for Drug therapy COLLECTION VENOUS BLOOD VENIPUNCTURE Routine 04/29/2025 4:10 PM CDT Annual physical exam Establishing care with new doctor, encounter for Drug therapy OUTSIDE LAB (SCAN ORDER) 04/26/2025 OUTSIDE LAB (SCAN ORDER) 04/26/2025 OUTSIDE LAB (SCAN ORDER) 04/26/2025 OUTSIDE LAB (SCAN ORDER) 04/15/2025 OUTSIDE LAB (SCAN ORDER) 04/14/2025 OUTSIDE LAB (SCAN ORDER) 04/14/2025 OUTSIDE LAB (SCAN ORDER) 04/14/2025 from Last 3 Months Results * PATHOLOGY GENERIC (SCAN ORDER) (05/03/2025) 05/03/2025 [employer] [facility] Scanned SCANNING Final Resu lt * OUTSIDE LAB (SCAN ORDER) (05/03/2025) Only the most recent of8 resultswithin the time period is included. 05/03/2025 [facility] Scanned SCANNING Final Resu lt * (ABNORMAL) URINALYSIS (04/29/2025 4:27 PM CDT) COLOR (U) YELLOW 04/29/2025 7:55 PM CDT [facility] TRANSPARENCY HAZY(A) CLEAR 04/29/2025 7:55 PM CDT [facility] SPECIFIC GRAVITY (U) >1.030 1.003 - 1.040 04/29/2025 7:55 PM CDT [facility] U PH 6.0 5.0 - 9.0 04/29/2025 7:55 PM CDT [facility] PROTEIN RANDOM (U) NEGATIVE NEGATIVE 04/29/2025 7:55 PM CDT [facility] GLUCOSE (U) NEGATIVE NEGATIVE 04/29/2025 7:55 PM CDT [facility] KETONES MG/DL (U) TRACE(A) NEGATIVE 04/29/2025 7:55 PM CDT [facility] BILIRUBIN (U) NEGATIVE NEGATIVE 04/29/2025 7:55 PM CDT [facility] BLOOD (U) 3+(A) NEGATIVE 04/29/2025 7:55 PM T [facility] UROBILINOGEN 0.2 0.0 - 2.0 EU/DL 04/29/2025 7:55 PM CDT [facility] NITRITES NEGATIVE NEGATIVE 04/29/2025 7:55 PM CDT [facility] LEUKOCYTES (U) NEGATIVE NEGATIVE 04/29/2025 7:55 PM CDT [facility] RBC/HPF 4-9(A) 0 - 3 /HPF 04/29/2025 7:55 PM CDT [facility] WBC/HPF 0-3 0 - 3 /HPF 04/29/2025 7:55 PM CDT [facility] EPI/HPF 4-9 /HPF 04/29/2025 7:55 PM CDT [facility] BACTERIA (U) NONE SEEN NONE SEEN 04/29/2025 7:55 PM CDT [facility] CA OXALATE CRYSTALS PRESENT 04/29/2025 7:55 PM CDT [facility] AMORPHOUS SEDIMENT PRESENT 04/29/2025 7:55 PM CDT [facility] URINE SPECIMEN OBTAINED BY CLEAN CATCH PROCEDURE / Unknown 04/29/2025 4:27 PM CDT Margoth Roman MD URINE ORDERABLES Final Result Performing Organization Address [facility] Co de Phone Number [facility] [address] [place] [address], * ALBUMIN/CREATININE RATIO, RANDOM URINE (04/29/2025 4:27 PM CDT) MICROALBUMIN (U) 15.7 <20 MG/L 04/30/20 10:07 AM CDT [facility] CREATININE RANDOM (U) 294.7 MG/DL 04/30/2025 10:07 AM CDT [facility] ALBUMIN/CREAT RATIO 5.3 <30 MG/G 04/30/2025 10:07 AM CDT [facility] URINE SPECIMEN / Unknown 04/29/2025 4:27 PM CDT us Margoth Roman MD URINE ORDERABLES Final Result Performing Organization Address [facility] de Phone Number [place] [id number] [place] [address], from Last 3 Months Insurance R Care Teams Transportation Lead Relationship Specialty Start Date End Date Margoth Roman MD [address] [facility] [address] [place] [address] PCP - General INTERNAL MEDICINE 04/29/25
--- OUTSIDE RECORDS SUMMARY | 2025-06-24 07:26 | XMS_ITS | Clinical Summary ---
Author Organization [facility] [address] Address [address] [place] [address] Care Team Providers Care Hydrologist Name Role Phone Araceli Guzmán Primary Care [...] Medical History Medical History Date Comments Diabetes type 2 Asthma PCOS (polycystic ovarian syndrome) [...] on file Legal Sex Female 7:51 PM ARBORIST CLIMBER Gender Identity Female 08/09/2024 6:46 AM ARBORIST CLIMBER Sexual Orientation Straight 08/09/2024 6: 46 AM ARBORIST CLIMBER Obstetrics History Para Term AB IAB SAB Ectopic Multiple Livin g Live Births 3 0 3 3 0 Date Outcome GA Total Labor Labor/2nd/3rd Weight Sex Type Anes PTL Joan A1 A5 Name Clin SAB SAB SAB Last Filed Vital Signs Vital Sign Reading Time Taken Comments Blood Pressure 128/80 09/21/2024 2:57 PM ARBORIST CLIMBER Pulse 82 09/21/2024 2:57 PM ARBORIST CLIMBER Temperature 36.9 C (98.4 F) 09/07/2024 8:52 AM ARBORIST CLIMBER Respiratory Rate 16 09/07/2024 9:40 AM ARBORIST CLIMBER Oxygen Saturation 97% 09/21/2024 2:57 PM ARBORIST CLIMBER Inhaled Oxygen Concentration - - Weight 128.8 kg (284 lb) 09/21/2024 2:57 PM ARBORIST CLIMBER Height 170.2 cm (5' 7) 09/21/2024 2:57 PM ARBORIST CLIMBER Body Mass Index 44.48 09/21/2024 2:57 PM ARBORIST CLIMBER Plan of Treatment Health Maintenance Due Date Last Done Comments Albumin Creatinine Ratio, Urine 1992 Depression Screening 1992 Dilated Eye Exam 1992 Foot Exam 1992 Varicella Vaccines (2 of 2 - 13+ 2-dose series) 04/29/2014 04/01/2014 HPV Vaccines (1 - 3-dose SCD M series) 2019 Pneumococcal vaccine <65 (2 of 2 - PCV) 03/21/2023 03/21/2022 Hemoglobin A1C 03/22/2024 09/22/2023, 02/0 01/2023, 02/24/2017 Cervical Cancer Screening 09/22/20242023, 09/22/2023, 07/25/2022, Additional history exists Regular Well Visit/Exam 18-64 09/22/2024 09/22/2023, 07/25/2022 Covid-19 Vaccine (3 - 2024-2 6 season) 2025 03/26/2021, 03/04/2021 Influenza Vaccine (#1) 2025 , 05/11/2018, 2015 Lipid Panel 08/16/2025 08/16/2024 eGFR 09/07/2025 09/07/2024, 05/18, 09/23/2022 DTaP/Tdap/Td Vaccine (8 - Td or Tdap) 12/20/2027 12/19/2017, 01/03/2007, 08/26/1996, Additional history exists Hepatitis B Screening Completed 02/06/1994 , 08/24/1993, 02/07/1993, Additional history exists Hepatitis C Screening Completed 12/13/2016 Procedures Procedure Name Priority Date/Time Associated Diagnosis Comments EGFR STAT 09/07/2024 9:13 AM ARBORIST CLIMBER POCT LIPID PANEL Routine 08/16/2024 3:26 PM ARBORIST CLIMBER Tachycardia, unspecified HEMOGLOBIN A1C Routine 09/22/2023 9:46 AM ARBORIST CLIMBER Abnormal uterine bleeding (AUB) HIGH RISK HPV DNA DETECTION WITH GENOTYPING Routine 09/22/2023 9:37 AM ARBORIST CLIMBER Well woman exam with routine gynecological exam HEPATITIS C ANTIBODY Routine 12/13/2016 1:24 PM CDT from Last 3 Months or Most Recently Relevant to Health Maintenance Results * eGFR (09/07/2024 9:13 AM ARBORIST CLIMBER) eGFR >90 >=60 mL/min/1. 73 m2 Comment: [...] last reviewed 2021. Blood 09/07/2024 9:13 AM ARBORIST CLIMBER 09/07/2024 9:15 AM ARBORIST CLIMBER us Nora MAY LAB BLOOD ORDERABLES Final Resul t [facility] [address] [facility] Department of Laboratories [place], [place] [id number] * POCT lipid panel (08/16/2024 3:26 PM ARBORIST CLIMBER) Cholesterol, POC 172 mg/dL HDL, POC 49 mg/dL Triglycerides, POC 88 mg/dL LDL Cholesterol POC 106 mg/dL Chol/HDL Ratio, POC 3.5 Non-HDL Cholesterol, POC 123 mg/dL Cholesterol Total, POC 172 mg/dL Capillary blood 08/16/2024 3 :26 PM ARBORIST CLIMBER us Mp Borja MD POINT OF CARE TEST ORDER MARIA E Final Result * (ABNORMAL) Hemoglobin A1c (09/22/2023 9:46 AM ARBORIST CLIMBER) Pathologist [facility] Hgb A1C 6.0(H) 4.0 - 5.6 % MARY Comment:Testing performed by : [address] [address] Estimated Average Glucose 126 mg/dL MARY Comment: The ADA recommends reporting an estimated Average Glucose (eAG) with all Hemoglobin A1c results using the equation derived from a study of 507 normal and diabetic adults. Minority populations were underrepresented and children were not included. (Diabetes Care 31:3476-4128, 2008). The eAG is not equivalent to a fasting glucose. Testing performed by: [address] [address] Blood 09/22/2023 9:4 6 AM ARBORIST CLIMBER 09/22/2023 12:02 PM ARBORIST CLIMBER Kendy Pablo MD LAB BLOOD ORDERABLES Final Result [facility] [address] [facility] Department [place] [address] * (ABNORMAL) High Risk HPV DNA Detection with Genotyping (Molecular component) (09/22/2023 9:37 AM ARBORIST CLIMBER) [facility] HPV HR 16 Not Detected Not Detected MARY Comment:Testing performed by : [facility], [address] [place] [address] HPV HR 18 Not Detected Not Detected MARY Comment:Testing performed by : [facility], [address] [place]., [address] HPV HR Non 16/18 Detected(A) Not Detected [...] test have been verified by the [facility] Molecular Infectious Disease laboratory. Correlate with separately reported cytology results, as applicable. Interpretive data last revised 23 Testing performed by: [facility], [address] [place]., [address] Endocervical 09/22/2023 9:37 AM ARBORIST CLIMBER 09/23/2023 9:23 AM ARBORIST CLIMBER Narrative MARY - 09/24/2023 12:05 AM ARBORIST CLIMBER Clinical history and diagnosis->screening Number of vials->1 Testing type->Screening Last menstrual period (date if known)->09/09/2023 us Kendy Pablo MD LAB BODY FLUIDS AND STOOLS ORDERABLES Final Result [facility] [address] [facility] Department [place] [address] * Hepatitis C antibody (12/13/2016 1:24 PM CDT) Hep C Ab NON-REACTI VE NON-REACTI VE [facility] HISTORICAL RESULTS SIGNAL TO CUT-OFF 0.03 <1.00 [facility] HISTORICAL RESULTS 12/13/2016 1:24 PM CDT 12/16/2016 1:15 PM CDT Narrative [facility] HISTORICAL RESULTS - 12/16/2016 1:00 PM CDT LTC ONLY: NURSE COLLECTED - NO SPECIMEN PROVIDED. PERFORMING LAB: [place], [facility] [address] [address] [address] Kp Vargas D.O., MPH us Antonia Hoff MD LAB MICROBIOLOGY - GENERAL O RDERABLES Final Result [facility] HISTORICAL RESULTS from Last 3 Months or Most Recently Relevant to Health Maintenance Insurance [facility] Care Teams Hydrologist Relationship Specialty Start Date End Date Araceli Guzmán PA PCP - General Physician Bridal Service Sales And Management 07/25/22
--- OUTSIDE RECORDS SUMMARY | 2025-06-24 07:26 | XMS_ITS | Encounter Summary ---
Author Organization [facility] Address [address] [place] [address] Care Team Providers Care Siebel Consultant Name Role Phone Margoth Roman MD Primary Care Provider [phone] Encounter Details Date Type Department Care Team (Late st Contact Info) Description 03/10/2025 MyChart Message Enc [facility] [place] [address] [place] [address] Margoth Roman MD [address] [place] [address] Medical Records Social History Tobacco Use Types Packs/Day Years Used Date Smoking Tobacco: Never Assessed Comments Unknown Sex and Gender Information Value Date Recorded Sex Assigned at Female 10/12/2024 7:31 AM PLANT ENGINEER Legal Sex Female 8:29 PM CDT Gender Identity Female 10/12/2024 7:31 AM PLANT ENGINEER Sexual Orientation Straight 10/12/2024 7: 31 AM PLANT ENGINEER documented as of this encounter Plan of Treatment Upcoming Encounters Date Type Department Care Team (Late st Contact Info) Description 06/24/2025 3:00 PM PLANT ENGINEER [facility] [address] [place] [address] Margoth Roman MD [address] [place] [address] documented as of this encounter Visit Diagnoses Not on filedocumented in this encounter Care Teams Siebel Consultant Relationship Specialty Start Date End Date Margoth Roman MD [address] [address] PCP - General INTERNAL MEDICINE 04/29/25 documented as of this encounter
--- OUTSIDE RECORDS SUMMARY | 2025-06-24 07:26 | XMS_ITS | Clinical Summary ---
Author Organization [facility] Address [address] [place] [address] Phone Care Team Providers Care Container Packer Operator Name Role Phone Araceli Guzmán Sariah JOHNSON Primary Care Provider [phone] Allergies Active Allergy Reactions Criticality Noted Date [...] PM CDT Lab [facility] [address] [address] Lab, [facility] [place] Anemia, unspecified type 04/14/2025 2:00 PM CDT Office Visit [facility] [address] [address] Manuel Meyers MD Anemia, unspecified [...] Priority Date/Time Associated Diagnosis Comments VITAMIN B12 [id number] [place] Routine 04/14/2025 2:39 PM CDT IRON AND TIBC [id number] [place] Routine 04/14/2025 2:39 PM CDT FOLATE [id number] OH Routine 04/14/2025 2:39 PM CDT FERRITIN [id number] [place] Routine 04/14/2025 2: 39 PM CDT COMPLETE BLOOD COUNT (CBC) WITH DIFF Routine 04/14/2025 2:39 PM CDT Anemia, unspecified type RETICULOCYTE COUNT (RETIC) Routine 04/14/2025 2:39 PM CDT Anemia, unspecified type CMP (COMPREHENSIVE METABOLIC PANEL) Routine 04/14/2025 2:39 PM CDT Anemia, unspecified type from Last 3 Months Results * VITAMIN B12 [id number] [place] (04/14/2025 2:39 PM CDT) VITAMIN B12 480 232 - 1,245 PG/ML CANCER HOUSING PROPERTY MANAGER [facility] 04/14/2025 2:39 PM CDT Narrative CANCER HOUSING PROPERTY MANAGER [facility] - 04/15/2025 7:09 AM CDT TESTING PERFORMED AT: [CB] [facility] [address], [address], PHONE: [phone], SHUTTLE VAN DRIVER: DIANE ORTIZ, PHD us Manuel Meyers MD LAB SEND OUTS Final Result CANCER HOUSING PROPERTY MANAGER [facility] [place] [address], * (ABNORMAL) IRON AND TIBC [id number] [place] (04/14/2025 2:39 PM CDT) Iron Bind.Cap.(TIBC) 299 250 - 450 UG/DL [facility] UIBC 281 131 - 425 UG/DL [facility] HOUSING PROPERTY MANAGER [facility] Iron, Serum 18(L) 27 - 159 UG/DL [facility] Iron Saturation 6(LL) 15 - 55 % [facility] HOUSING PROPERTY MANAGER [facility] 04/14/2025 2:39 PM CDT [facility] - 04/15/2025 7:09 AM CDT TESTING PERFORMED AT: [] [facility], [address] [place] [address], [address], PHONE: [phone], SHUTTLE VAN DRIVER: DIANE ORTIZ, PHD us Manuel Meyers MD LAB SEND OUTS Final Result Performing Organization Address [facility] Co de Phone Number [facility] Cancer Care [address] [place] [address], * FOLATE [id number] [place] (04/14/2025 2:39 PM CDT) Folate (Folic Acid), Serum 11.7 >3.0 NG/ML [facility] Comment: A SERUM FOLATE CONCENTRATION OF LESS THAN 3.1 NG/ML IS CONSIDERED TO REPRESENT CLINICAL DEFICIENCY. 04/14/2025 2:39 PM CDT [facility] - 04/15/2025 7:09 AM CDT TESTING PERFORMED AT: [] [facility], [address] [place] [address], [address], PHONE: [phone], SHUTTLE VAN DRIVER: DIANE ORTIZ, PHD us Manuel Meyers MD LAB SEND OUTS Final Result Performing Organization Address City/[facility] Hospital/ZIP Co de Phone Number [facility] Cancer Care [address] [place] [address], * FERRITIN [id number] [place] (04/14/2025 2:39 PM CDT) Ferritin, Serum 20 15 - 150 NG/ML [facility] 04/14/2025 2:39 PM CDT [facility] - 04/15/2025 7:09 AM CDT TESTING PERFORMED AT: [] [facility], [address] [place] [address], [address], PHONE: [phone], SHUTTLE VAN DRIVER: DIANE ORTIZ, PHD Manuel Meyers MD LAB SEND OUTS Final Result Performing Organization Address [facility] Co de Phone Number [facility] Cancer Care [address] [place] [address], [place] [phone] * RETICULOCYTE COUNT (RETIC) (04/14/2025 2:39 PM CDT) Reticulocyte count 1.35 0.50 - 1.70 % [facility] RET-He 28.20 28.20 - 36.60 pg [facility] Comment: RET-He is a direct assessment of incorporation of iron into erythrocyte hemoglobin. It provides an indirect measure of the iron available for new erythropoiesis over past 2-4 days. Blood 04/14/2025 2:39 PM CDT [facility] - 04/14/2025 2:50 PM CDT Release to patient->Immediate us Manuel Meyers MD HEMATOLOGY ORDERABLES Final Resu lt Performing Organization Address [facility]/ZIP Co de Phone Number [facility] [place] [address], [place] [phone] * (ABNORMAL) CMP (COMPREHENSIVE METABOLIC PANEL) (04/14/2025 2:39 PM CDT) Glucose 90 70 - 105 mg/dL [facility] Blood Urea Nitrogen 9 7 - 25 mg/dL [facility] Creatinine 0.8 0.6 - 1.2 mg/dL [facility] Sodium 139 136 - 145 mEq/L [facility] Potassium 4.2 3.5 - 5.1 mEq/L [facility] Chloride 103 98 - 107 mEq/L [facility] Bicarbonate 29 21 - 31 mEq/L [facility] Total Bilirubin 0.4 0.3 - 1.0 mg/dL [facility] Alk. Phosphatase 81 34 - 104 U/L [facility] Aspartate Aminotransferase 12(L) 13 - 39 U/L [facility] Alanine Aminotransferase 17 7 - 52 U/L [facility] Total Protein 7.5 6.4 - 8.9 g/dL [facility] Albumin 4.1 3.5 - 5.7 g/dL [facility] Calcium 9.6 8.6 - 10.3 mg/dL [facility] Anion Gap 11.2 7.0 - 15.0 mEq/L [facility] Globulin 3.4 2.0 - 3.5 g/dL [facility] EGFR 100 >60 ml/min/1. 73m2 [facility] Comment: This eGFR is calculated using 2020 CKD-EPI Creatinine equation without race modifier based on the NKF-ASN task force recommendations Equation: gMGN=057*min(SCr/k,1)a*max(SCr/k,1)-1.200*0.9938Age*1.012 (if female), where SCr is serum creatinine, k is 0.7 for females and 0.9 for males, and a is -0.241 for females and -0.302 for males Blood 04/14/2025 2:39 PM CDT Narrative [facility] - 04/14/2025 3:24 PM CDT Release to patient->Immediate IS THE PATIENT REQUIRED TO BE FASTING FOR 8 HOURS?->No us Manuel Meyers MD CHEMISTRY ORDERABLES Final Resul t CANCER HOUSING PROPERTY MANAGER [facility] Special[facility] [place] [address], [place] [phone] * (ABNORMAL) COMPLETE BLOOD COUNT (CBC) WITH DIFF (04/14/2025 2:39 PM CDT) WBC 6.9 4.0 - 10.0 10*3/uL CANCER HOUSING PROPERTY MANAGER [facility] HGB 11.2 11.2 - 15.7 g/dL CANCER HOUSING PROPERTY MANAGER [facility] HCT 38.0 34.1 - 44.9 % CANCER HOUSING PROPERTY MANAGER [facility] PLT 263 163 - 369 10*3/uL CANCER HOUSING PROPERTY MANAGER [facility] MPV 10.7 9.4 - 12.4 fL CANCER HOUSING PROPERTY MANAGER [facility] RBC 4.46 3.93 - 5.22 10*6/uL CANCER HOUSING PROPERTY MANAGER [facility] MCV 85 79 - 95 fL CANCER HOUSING PROPERTY MANAGER [facility] MCH 25.1(L) 25.6 - 32.2 pg CANCER HOUSING PROPERTY MANAGER [facility] MCHC 29.5(L) 32.2 - 36.5 g/dL CANCER HOUSING PROPERTY MANAGER [facility] RDW 15.9(H) 11.6 - 14.4 % CANCER HOUSING PROPERTY MANAGER [facility] Absolute Neutrophil Count 4,209 cells/uL [facility] ER SPECIALISTS [facility] Absolute Seg Count 4,209 1,440 - 6,600 cells/uL CANCER HOUSING PROPERTY MANAGER [facility] Absolute Lymph Count 2,277 760 - 4,000 cells/uL CANCER HOUSING PROPERTY MANAGER [facility] Absolute Churchill Count 345 160 - 1,200 cells/uL CANCER HOUSING PROPERTY MANAGER [facility] Absolute Eos Count 69 0 - 300 cells/uL CANCER HOUSING PROPERTY MANAGER [facility] Segmented Neutrophils 61 36 - 66 % CANCER HOUSING PROPERTY MANAGER [facility] Lymphocytes 33 19 - 40 % CANCER C ENTER SPECIALISTS [facility] Monocytes 5 4 - 12 % CANCER [facility] [address] SPECIALISTS [facility] Eosinophils 1 0 - 3 % CANCER C ENTER SPECIALISTS [facility] WBC Estimate Normal CANCER HOUSING PROPERTY MANAGER [facility] Platelet Estimate Normal CANCER HOUSING PROPERTY MANAGER [facility] RBC Morphology Abnormal CANCE R HOUSING PROPERTY MANAGER [facility] Anisocytosis 1+ CANCER HOUSING PROPERTY MANAGER [facility] Blood 04/14/2025 2:39 PM CDT Narrative CANCER HOUSING PROPERTY MANAGER [facility] - 04/14/2025 3:47 PM CDT Release to patient->Immediate us Manuel Meyers MD HEMATOLOGY ORDERABLES Final Resu lt CANCER HOUSING PROPERTY MANAGER OF [facility] [place] [address], [place] [phone] from Last 3 Months Insurance [facility] Care Teams Container Packer Operator Relationship Specialty Start Date End Date Araclei Guzmán PAC [address] [place] [address] PCP - General Physician Manufacturing Production Manager 02/15/25
[2025-06-24 09:00] LABS: Hematocrit 40.8 % (37.0-47.0); Hemoglobin 12.0 g/dL (12.0-15.0); Immature Granulocyte Percent A 0.4 % (0-0.5); Lymphocytes Absolute Auto 2.44 K/mm3 (0.9-3.2); Mean Corpuscular HGB Conc 29.4 g/dl (32-36); Mean Corpuscular Hemoglobin 25.4 pg (26-34); Mean Corpuscular Volume 86.4 fl (80-100); Nucleated Red Blood Cells Absolute Auto 0.000 K/mm3 (0.0-0.012); Nucleated Red Blood Cells Perc 0.0 % (0.0-0.2); Platelet Count Result 241 k/mm3 (150-375); Red Blood Count 4.72 M/mm3 (4.2-5.4); White Blood Count 8.4 K/mm3 (4.5-10.0)
[2025-06-24 09:50] LABS: Anisocytosis Occasional; Hypochromasia Occasional; Schistocytes None Seen
[2025-06-24 10:04] LABS: Hemoglobin A1C 5.9 % (<5.7)
[2025-06-24 10:12] LABS: Thyroid Stimulating Hormone Reflex 0.485 uIU/mL (0.465-4.68)
[2025-06-24 11:31] LABS: Alanine Aminotransferase 24 U/L (6-35); Albumin Level 4.1 g/dL (3.5-5.1); Alkaline Phosphatase 89 U/L (38-126); Anion Gap 8 mmol/L (4-12); Aspartate Amino Transferase 19 U/L (14-36); Bilirubin,Total 0.5 mg/dL (0.2-1.3); Blood Urea Nitrogen 13 mg/dL (7-17); Calcium 9.2 mg/dL (8.4-10.2); Carbon Dioxide 26 mmol/L (22-30); Chloride 101 mmol/L (98-107); Cholesterol 148 mg/dL (0-200); Estimated Glomerular Filt Rate > 60; Glucose 84 mg/dL (65-110); HDL Direct 42 mg/dL; Magnesium 2.0 mg/dL (1.6-2.3); Potassium 5.0 mmol/L (3.4-5.0); Sodium 135 mmol/L (137-145); Total Protein 7.6 g/dL (6.3-8.2); Triglycerides 63 mg/dL (<150)
== END 2025-06-24 07:20 | disposition home or self-care (01) ==
LOC: ANHLAB 07:23
PROVIDERS: PCP Internal Medicine; Visit Provider Internal Medicine
DX: Z00.00 Encounter for general adult medical examination without abnormal findings (principal); Z76.89 Persons encountering health services in other specified circumstances; Z79.899 Other long term (current) drug therapy
CPT/HCPCS: 36415; 80053; 80061; 83036; 83735; 84443; 85025; 86803